=== PATIENT | male | born 1950 | race Caucasian/White ===

== ENCOUNTER 2017-06-24 10:58 | Emergency (ER) | payer OTHER ==
--- NOTE | 2017-06-24 11:10 | EDPHY ---
H & P Source: Patient, EMS Exam Limitations: No limitations Time Seen by Provider: 06/24/17 11:06 HPI/ROS: HPI: This is a 67-year-old male presents with Chief Complaint: Nosebleed and vasovagal near syncope Location: Left nare Quality: Nose bleed Duration: 1-3 hours Signs and Symptoms: No headache, no trauma, + dizziness, + sweating, + chest discomfort, no shortness of breath, no diaphoresis, no radiation Timing: Sudden, resolved Severity: Moderate Context: Patient reports that he was performing his regular stretches this morning when he had sudden onset of epistaxis from his left nare. He denies trauma/digital manipulation. He takes baby aspirin daily. He applied direct pressure but could not get it to stop for over an hour. He went to the [facility] at which time they placed a left rhino rocket with cessation of epistaxis. Approximately 1-5 minutes after placement of rhino rocket, patient began to feel lightheaded, anterior chest pressure and felt "woozy," he then had a witnessed vasovagal near-syncope episode. He did not lose consciousness. EMS was called and blood pressure upon arrival was 80/60. He was given 500 cc of normal saline and blood pressure now is 130/80. EKG showed no acute ischemic changes at the PCP which I reviewed at bedside. Patient has no prior history of cardiac disease. Has never had an OK, cardiac stress testing. Patient reports that he takes substantial amount of herbal supplementation. He is currently laughing and smiling and has no complaints. He reports that he feels substantially better. Modifying Factors: Direct pressure, rhino rocket, IV fluids with complete relief Comment: ROS: see HPI Constitutional: No fever, no chills, no weight loss Eyes: No blurred vision Respiratory: No shortness of breath, no cough Cardiovascular: No chest pain Gastrointestinal: No nausea, no vomiting, no diarrhea Genitourinary: No dysuria Extremities: No myalgias Neurologic: No weakness, no numbness Skin: No rashes Hematologic: No bruising, no bleeding MEDICAL/SURGICAL/SOCIAL HISTORY: Medical history: Asthma Surgical history: Denies Social history: . CONSTITUTIONAL: Well-developed well-nourished adult white male, awake and alert , no obvious distress HEENT: Atraumatic and normocephalic, PERRL, EOMI. Tympanic membranes clear. Oropharynx clear, no exudate and moist pink mucosa. Nares: Right no epistaxis ; left rhino rocket in place. Airway patent. No lymphadenopathy. No meningismus. Cardiovascular: Normal S1/S2, regular rate, regular rhythm, without murmur rub or gallop. PULMONARY/CHEST: Symmetrical and nontender. Clear to auscultation bilaterally. Good air movement. No accessory muscle usage. ABDOMEN: Soft, nondistended, nontender, no rebound, no guarding, no peritoneal signs, no masses or organomegaly. No CVAT. EXTREMITIES: 2/2 pulses, strength 5/5, no deformities, no clubbing, no cyanosis or edema. NEUROLOGICAL: no focal neuro deficits. GCS 15. SKIN: Warm and dry, no erythema. no rash. Good capillary refill. (Vickie Keita) Constitutional: Initial Vital Signs Temperature (C) 36.4 C 06/24/17 10:58 Heart Rate 78 06/24/17 10:58 Respiratory Rate 16 06/24/17 10:58 Blood Pressure 136/82 H 06/24/17 10:58 O2 Sat (%) 96 06/24/17 10:58 O2 Delivery Mode Room Air Allergies/Adverse Reactions: No Known Allergies Allergy (Unverified 03/31/12 22:03) Home Medications: Medication Instructions Recorded Aspirin 06/24/17 Herbal Drugs 06/24/17 Medical Decision Making - Diagnostics EKG Interpretation: 12 lead EKG: Indication: Near syncope Rhythm: Normal sinus rhythm, rate 74 beats per minute [place]: Normal Intervals: Normal QRS: Normal ST segments: Normal T segments: nonspecific changes INTERPRETATION: No acute ischemic changes The 12 lead EKG was interpreted by myself and with attending. (Vickie Keita) EKG: Complete interpretation has been separately recorded in the [facility] archive. Summary impression: Sinus rhythm (Armani Vora) ED Course/Re-evaluation: Epistaxis resolved with left rhino rocket and vital signs stable upon arrival Labs, EKG ordered and shows no signs of acute coronary syndrome, arrhythmia, anemia, coagulopathy (Vickie Keita) Differential Diagnosis: Differential diagnosis includes but is not limited to vasovagal syncope, anemia , epistaxis, coagulopathy. (Vickie Keita) Other Provider: PHYSICIAN DOCUMENTATION: The patient was evaluated and managed by the Physician Wire Tester. My co- signature indicates that I have reviewed this chart and I agree with the findings and plan of care as documented. I am the secondary supervising physician. (Armani Vora) - Data Points Laboratory Results: Laboratory Results 06/24/17 11:19 06/24/17 06/24/17 06/24/17 11:19 11:19 11:19 WBC 11.86 10^3/uL H 10^3/uL (3.80-9.50) RBC 4.37 10^6/uL L 10^6/uL (4.40-6.38) Hgb 14.2 g/dL g/dL (13.7-17.5) Hct 39.6 % L % (40.0-51.0) MCV 90.6 fL fL (81.5-99.8) MCH 32.5 pg pg (27.9-34.1) MCHC 35.9 g/dL g/dL (32.4-36.7) RDW 12.0 % % (11.5-15.2) Plt Count 142 10^3/uL L 10^3/uL (150-400) MPV 9.9 fL fL (8.7-11.7) Neut % (Auto) 77.5 % H % (39.3-74.2) Lymph % (Auto) 14.0 % L % (15.0-45.0) [place] % (Auto) 6.6 % % (4.5-13.0) Eos % (Auto) 0.8 % % (0.6-7.6) Baso % (Auto) 0.3 % % (0.3-1.7) Nucleat RBC Rel Count 0.0 % % (0.0-0.2) Absolute Neuts (auto) 9.21 10^3/uL H 10^3/uL (1.70-6.50) Absolute Lymphs (auto) 1.66 10^3/uL 10^3/uL (1.00-3.00) Absolute Monos (auto) 0.78 10^3/uL 10^3/uL (0.30-0.80) Absolute Eos (auto) 0.09 10^3/uL 10^3/uL (0.03-0.40) Absolute Basos (auto) 0.03 10^3/uL 10^3/uL (0.02-0.10) Absolute Nucleated RBC 0.00 10^3/uL 10^3/uL (0-0.01) Immature Gran % 0.8 % % (0.0-1.1) Immature Gran # 0.09 10^3/uL 10^3/uL (0.00-0.10) PT 13.5 SEC SEC (12.0-15.0) INR 1.04 (0.83-1.16) APTT 23.7 SEC SEC (23.0-38.0) Troponin I < 0.012 ng/mL ng/mL (0.000-0.034) Departure - Departure Disposition: Home, Routine, Self-Care Clinical Impression: Left-sided epistaxis, Vasovagal near syncope Condition: Good Instructions: Nosebleed (ED) Additional Instructions: Please keep rhino rocket in place for the next 1-2 days. Follow-up with PCP or ear nose and throat to have it removed in 1-2 days. Avoid all NSAIDs for the next few days. Referrals: Anderson Moscoso MD [Primary Care Provider] - As per Instructions Aroldo Yi MD [Medical Doctor] - As per Instructions
[2017-06-24 11:27] LABS: % IMMATURE GRANULYOCYTES 0.8 % (0.0-1.1); ABSOLUTE IMMATURE GRANULOCYTES 0.09 10^3/uL (0.00-0.10); ADD DIFF? NO; ADD MORPH? NO; ADD SCAN? NO; ATYPICAL LYMPHOCYTE FLAG 0 (0-99); FRAGMENT RBC FLAG 0 (0-99); HEMATOCRIT 39.6 % (40.0-51.0); HEMOGLOBIN 14.2 g/dL (13.7-17.5); LEFT SHIFT FLG 0 (0-99); LIPEMIA HEMOLYSIS FLAG 90 (0-99); MEAN CELL HEMOGLOBIN 32.5 pg (27.9-34.1); MEAN CELL HEMOGLOBIN CONCENTR. 35.9 g/dL (32.4-36.7); MEAN CELL VOLUME 90.6 fL (81.5-99.8); MEAN PLATELET VOLUME 9.9 fL (8.7-11.7); PLATELET CLUMPS FLAG 10 (0-99); PLATELET COUNT 142 10^3/uL (150-400); RED BLOOD CELL COUNT 4.37 10^6/uL (4.40-6.38)
--- NOTE | 2017-06-24 11:31 | CPEKG ---
Heart Rate: 74 RR Interval: 811 P-R Interval: 184 QRSD Interval: 88 QT Interval: 352 QTC Interval: 391 P [place]: 50 QRS [place]: -25 T Wave [place]: -14 EKG Severity - BORDERLINE ECG - EKG Impression: SINUS RHYTHM Electronically Signed By: Armani Vora 24-Jun-2017 12:33:39
[2017-06-24 11:37] LABS: INR 1.04 (0.83-1.16); PROTIME(PATIENT) 13.5 SEC (12.0-15.0)
[2017-06-24 11:38] LABS: APTT 23.7 SEC (23.0-38.0)
[2017-06-24 12:21] VITALS: BP 107/78; PULSE 72; RESP 15; TEMP 97.7; O2SAT 93
== END 2017-06-24 12:21 | disposition home or self-care (01) ==
LOC: EDUNIT#
DX: R04.0 Epistaxis (principal); R55 Syncope and collapse; J45.909 Unspecified asthma, uncomplicated; Z79.82 Long term (current) use of aspirin

== ENCOUNTER 2017-06-24 20:36 | Observation (INO) | payer OTHER ==
--- NOTE | 2017-06-24 21:09 | EDPHY ---
H & P Time Seen by Provider: 06/24/17 20:59 HPI/ROS: CHIEF COMPLAINT: Epistaxis HISTORY OF PRESENT ILLNESS: This patient is a 67 y/o male returning to the emergency department complaining of persistent left-sided epistaxis. This morning, he presented to [facility] urgent care for epistaxis. Unable to control the epistaxis in clinic, so was seen by ENT. He saw Dr. Guillen, craft demonstrator, who placed a nasal packing. The bleeding stopped. However, after the packing was placed, the patient had a near-syncopal episode and presented to this emergency department for evaluation. He received IVF and HCT was normal. His epistaxis remained well-controlled at that time. After discharge around 12pm, the patient felt well throughout the afternoon. While getting ready for bed, he leaned over and began bleeding again, with blood seeping past the packing. The packing slipped out slightly and he replaced it, but the bleeding continued. He presents with a nasal clip and the packing still partially in place. No prior serious epistaxis. He denies any further dizziness or lightheadedness. No chest pain, headache, shortness of breath, or other associated symptoms. REVIEW OF SYSTEMS: A 10 point review of systems was performed and is negative with the exception of the elements mentioned in the history of present illness. Past Medical/Surgical History: 1. Asthma 2. Heart murmur 3. L knee injury 4. Nasal fracture Social History: . Lives in [place]. Former smoker. Smoking Status: Former smoker Physical Exam: General Appearance: Alert, pleasant and talkative Eyes: Pupils equal and round, no conjunctival pallor ENT, Mouth: Nasal packing left nostril and nasal clip in place. Oozing blood from left nostril. Persistent epistaxis following removal of nasal clip. Mucous membranes moist, blood in oropharynx Neck: Normal inspection Respiratory: Lungs are clear to auscultation Cardiovascular: Regular rate and rhythm Neurological: A&O, nonfocal, normal gait Skin: Warm and dry Extremities: Normal inspection Psychiatric: Mood and affect normal Constitutional: Initial Vital Signs Temperature (C) 37.0 C 06/24/17 20:40 Heart Rate 95 06/24/17 20:40 Respiratory Rate 18 06/24/17 20:40 Blood Pressure 160/99 H 06/24/17 20:40 O2 Sat (%) 96 06/24/17 20:40 O2 Delivery Mode Nasal Cannula O2 (L/minute) 3 Allergies/Adverse Reactions: No Known Allergies Allergy (Unverified 06/24/17 20:42) Home Medications: Medication Instructions Recorded Albuterol [Proventil Inhaler HFA 1 - 2 puffs IH Q4H PRN 06/24/17 (*)] Acetaminophen [Tylenol 325mg (*)] 650 mg PO Q4HRS PRN tab 06/25/17 Amoxicillin/Clavulanate Pot 875 mg PO BID #14 tab 06/25/17 [Augmentin 875 MG TAB (*)] Budesonide/Formoterol 160/4.5 2 puffs IH BID 06/25/17 [Symbicort 160-4.5 Mcg Inh (*)] Medical Decision Making ED Course/Re-evaluation: 67 y/o male presents with persistent epistaxis despite packing placed by Dr. Guillen, craft demonstrator, earlier today. Plan to consult with Dr. Guillen. Concern for recurrent severe epistaxis if I change the packing. However, need to change packing to control persistent bleeding. Query if need to change packing in OR vs ED. 21:[address] Guillen. Consulted with Dr. Yi, craft demonstrator restaurant operations manager. I will remove the current packing and replace with an inflatable rhinorocket. 21:36 Patient has severe epistaxis upon removal of packing, pulsatile bleeding left nares. Unable to visualize location of bleeding. Left-sided rhino rocket placed, 10 mL of air placed. Patient continued to have moderate bleeding. A rhino rocket was placed on the right. Inflated with 5 mL of air. He continued to have bleeding, so the left right a rocket was increased to 20ml air. This slowed the bleeding to a slow drip left nares. IV established and pt placed on monitor. 21:[address] Yi again, he will come to the ED. 22:03 Dr. Yi at bedside. 22:[address] Yi. BP decreased, epistaxis stopped at this time without further intervention. Discussed pack removal and attempt for cautery with silver nitrate vs. leaving pack in place and admitting the patient for BP control and observation. Keep BP around 120 or 130 systolic maximum. He recommends q2hr morphine. If bleed is arterial, patient may require surgical interventions. Recommend antibiotic prescription e.g Keflex while pack is in. Plan to admit. Keflex 500mg ordered. 22:33 Spoke with hospitalist service. Dr. Soto accepts admission. 2245: recurrent bleeding, Dr. Yi in room, plan to go to OR. BP decreased to 72/47, placed pt on left side, 2nd IV placed, IVF infusing, oxygen applied by face mask. Repeat Hct 36, pt already typed and screened. Repeat BP normalized, pt feels better, taken to the OR. Critical care time by me exclusive of procedures 40 minutes. I spent time in direct patient care, consultation with ENT, review of labs. Organ at risk: all , hemorrhage due to epistaxis. Differential Diagnosis: includes though not limited to posterior epistaxis, arterial bleeding, severe anemia, hemorrhagic shock. - Data Points Laboratory Results: Laboratory Results 06/24/17 21:48 Medications Given: Discontinued Medications Albumin Human (Alburx 5) Confirm Administered Dose 250 ml IV .STK-MED ONE Stop: 06/25/17 00:00 Last Admin: 06/25/17 04:02 Dose: Not Given Bacitracin (Bacitracin Ointment Tube) Confirm Administered Dose 14.2 erica TP .STK -MED ONE Stop: 06/24/17 23:24 Last Admin: 06/25/17 00:39 Dose: 14.2 erica Budesonide/Formoterol Fumarate (Symbicort 160-4.5 Mcg Inhaler) 2 puffs IH BID [facility] Stop: 12/22/17 10:59 Last Admin: 06/25/17 12:10 Dose: 2 puffs Sodium Chloride (Ns) 1,000 mls @ 0 mls/hr IV ONCE ONE; Wide Open PRN Reason: Protocol Stop: 06/24/17 21:50 Last Admin: 06/24/17 21:52 Dose: 1,000 mls Cefazolin Sodium/Dextrose (Ancef 1 Gm (Premix)) 50 mls @ 200 mls/hr IV ONCE ONE Stop: 06/25/17 02:44 Last Admin: 06/25/17 02:30 Dose: 50 mls Cefazolin Sodium/Dextrose (Ancef 1 Gm (Premix)) 50 mls @ 200 mls/hr IV 0200, 1000,1800 [facility] Stop: 07/25/17 09:59 Last Admin: 06/25/17 10:06 Dose: 50 mls Lidocaine/Epinephrine (Lidocaine 2%-Epi 1:100,000) Confirm Administered Dose 20 ml .ROUTE .STK-MED ONE Stop: 06/24/17 23:24 Last Admin: 06/25/17 00:52 Dose: Not Given Morphine Sulfate (Morphine) 4 mg IVP EDNOW ONE Stop: 06/24/17 22:11 Last Admin: 06/24/17 22:12 Dose: 4 mg Morphine Sulfate (Morphine) 4 mg IVP EDNOW ONE Stop: 06/24/17 22:49 Last Admin: 06/24/17 22:53 Dose: 4 mg Ondansetron HCl (Zofran) 4 mg IVP EDNOW ONE Stop: 06/24/17 22:11 Last Admin: 06/24/17 22:11 Dose: 4 mg Oxymetazoline HCl (Afrin Nasal [place]) Confirm Administered Dose 30 sprays .ROUTE .STK-MED ONE Stop: 06/24/17 23:24 Last Admin: 06/25/17 04:02 Dose: Not Given Departure - Departure Disposition: [facility] Inpatient Acute Clinical Impression: Left-sided epistaxis Condition: Serious Report Scribed for: Brittany Pacheco Report Scribed by: Nicolasa Rodríguez Date of Report: 06/24/17 Time of Report: 21:01 Physician Review and Approval Statement: 06/24/17 21:01 Portions of this note were transcribed by a medical office assistant. I personally performed a history, physical exam, medical decision making, and confirmed accuracy of information the transcribed note.
[2017-06-24] MEDS ORDERED: NS 1,000 ML IV ONE (21:49)
[2017-06-24 21:55] LABS: % IMMATURE GRANULYOCYTES 0.8 % (0.0-1.1); ABSOLUTE IMMATURE GRANULOCYTES 0.08 10^3/uL (0.00-0.10); ADD DIFF? NO; ADD MORPH? NO; ADD SCAN? NO; ATYPICAL LYMPHOCYTE FLAG 0 (0-99); FRAGMENT RBC FLAG 0 (0-99); HEMATOCRIT 40.2 % (40.0-51.0); HEMOGLOBIN 14.8 g/dL (13.7-17.5); LEFT SHIFT FLG 0 (0-99); LIPEMIA HEMOLYSIS FLAG 90 (0-99); MEAN CELL HEMOGLOBIN 33.3 pg (27.9-34.1); MEAN CELL HEMOGLOBIN CONCENTR. 36.8 g/dL (32.4-36.7); MEAN CELL VOLUME 90.5 fL (81.5-99.8); PLATELET CLUMPS FLAG 0 (0-99); PLATELET COUNT 165 10^3/uL (150-400); RED BLOOD CELL COUNT 4.44 10^6/uL (4.40-6.38); RED CELL DISTRIBUTION WIDTH 12.1 % (11.5-15.2)
[2017-06-24] MEDS ORDERED: ONDANSETRON 4 MG/2 ML VIAL ONE (22:10)
[2017-06-24] MEDS ORDERED: ONDANSETRON 4 MG/2 ML VIAL IVP ONE (22:10)
[2017-06-24] MEDS ORDERED: SILVER NITRATE APPLICATOR 1 APPL TP ONE (22:12)
[2017-06-24] MEDS ORDERED: ONDANSETRON DISINTEGRATING 4 MG TAB PO PRN (22:37)
[2017-06-24] MEDS ORDERED: ACETAMINOPHEN 325 MG TAB PO PRN (22:37)
[2017-06-24] MEDS ORDERED: ONDANSETRON 4 MG/2 ML VIAL IVP PRN (22:37)
[2017-06-24] MEDS ORDERED: hydrALAZINE 25 MG TAB PO PRN (22:39)
[2017-06-24] MEDS ORDERED: CEPHALEXIN 500 MG CAP PO ONE (22:55)
--- NOTE | 2017-06-24 23:06 | PDGENHP ---
History and Physical - Chief Complaint Epistaxis - History of Present Illness 67 yo M w/ no significant PMHx presents with epistaxis. Patient bent over to pick something up this morning and began to experience epistaxis. This was difficult to stop throughout the day. He is on a daily aspirin and various other supplements. He was seen by an ENT to placed some packing. Shortly after placement of the packing he had near-syncopal episode c/w a vaso-vagal event. Despite this packing he continued to bleed so he was sent to the ED. In the ED packing was again placed but he continues to bleed despite this. He is currently being evaluated by ENT with the possibility of surgical intervention. History Information - Allergies/Home Medication List Allergies/Adverse Reactions: No Known Allergies Allergy (Unverified 06/24/17 20:42) Home Medications: Albuterol [Proventil Inhaler HFA (*)] 1 - 2 puffs IH Q4H 06/24/17 [Last Taken Unknown] Aspirin 06/24/17 [Last Taken Unknown] Herbal Drugs 06/24/17 [Last Taken Unknown] I have personally reviewed and updated: family history, medical history - Past Medical History no pertinent PMH - Family History Additional family history: Denies family hx of bleeding - Social History Smoking Status: Former smoker Review of Systems Review of Systems: ROS: 10pt was reviewed & negative except for what was stated in HPI & below Physical Exam Physical Exam: Temp Pulse Resp BP Pulse Ox 37.0 C 90 18 141/100 H 94 06/24/17 20:40 06/24/17 22:20 06/24/17 22:20 06/24/17 22:20 06/24/17 22:20 Constitutional: appears nourished, uncomfortable Eyes: PERRL, EOMI Ears, Nose, Mouth, Throat: other (Active epistaxis despite packing in place) Cardiovascular: regular rate and rhythym Respiratory: no respiratory distress, no rales or rhonchi Gastrointestinal: normoactive bowel sounds, soft, non-tender abdomen Skin: warm, normal color Musculoskeletal: full muscle strength, no muscle tenderness Neurologic: AAOx3, CN II-XII Intact Psychiatric: interacting appropriately, not anxious Lab Data & Imaging Review 06/24/17 21:48 WBC 9.82 10^3/uL (3.80-9.50) H 06/24/17 21:48 RBC 4.44 10^6/uL (4.40-6.38) 06/24/17 21:48 Hgb 14.8 g/dL (13.7-17.5) 06/24/17 21:48 Hct 40.2 % (40.0-51.0) 06/24/17 21:48 MCV 90.5 fL (81.5-99.8) 06/24/17 21:48 MCH 33.3 pg (27.9-34.1) 06/24/17 21:48 MCHC 36.8 g/dL (32.4-36.7) H 06/24/17 21:48 RDW 12.1 % (11.5-15.2) 06/24/17 21:48 Plt Count 165 10^3/uL (150-400) 06/24/17 21:48 MPV 10.0 fL (8.7-11.7) 06/24/17 21:48 Neut % (Auto) 62.8 % (39.3-74.2) 06/24/17 21:48 Lymph % (Auto) 26.2 % (15.0-45.0) 06/24/17 21:48 [place] % (Auto) 8.8 % (4.5-13.0) 06/24/17 21:48 Eos % (Auto) 1.0 % (0.6-7.6) 06/24/17 21:48 Baso % (Auto) 0.4 % (0.3-1.7) 06/24/17 21:48 Nucleat RBC Rel Count 0.0 % (0.0-0.2) 06/24/17 21:48 Absolute Neuts (auto) 6.17 10^3/uL (1.70-6.50) 06/24/17 21:48 Absolute Lymphs (auto) 2.57 10^3/uL (1.00-3.00) 06/24/17 21:48 Absolute Monos (auto) 0.86 10^3/uL (0.30-0.80) H 06/24/17 21:48 Absolute Eos (auto) 0.10 10^3/uL (0.03-0.40) 06/24/17 21:48 Absolute Basos (auto) 0.04 10^3/uL (0.02-0.10) 06/24/17 21:48 Absolute Nucleated RBC 0.00 10^3/uL (0-0.01) 06/24/17 21:48 Immature Gran % 0.8 % (0.0-1.1) 06/24/17 21:48 Immature Gran # 0.08 10^3/uL (0.00-0.10) 06/24/17 21:48 Patient ABO/Rh A POSITIVE 06/24/17 21:48 Antibody Screen NEGATIVE 06/24/17 21:48 Assessment & Plan Assessment: 67 yo M w/ no significant PMHx presents with epistaxis. Plan: 1. Epistaxis - Difficult to control, likely some contribution from daily ASA but otherwise no clear trigger. Patient has no family or personal history of bleeding diathesis. Continues to bleed despite multiple packing attempts. - Currently being evaluated by ENT, may require surgery - Morphine PRN for pain, Maintain SBP <160 - Monitor CBC 2. Near-syncope - This occurred immediately after nasal packing was placed and patient does not think he actually lost consciousness. Very c/w vaso-vagal event in the setting of aggressive packing. - Monitor clinically Diet - Regular Code - Full Ppx - SCDs Dispo - Admit to observation status
[2017-06-24] MEDS ORDERED: LORazepam 2 MG/ML INJ ONE (23:10)
[2017-06-24 23:20] LABS: HEMATOCRIT 35.3 % (40.0-51.0); HEMOGLOBIN 13.3 g/dL (13.7-17.5)
[2017-06-24] MEDS ORDERED: OXYMETAZOLINE 30 ML NASAL SPRAY ONE (23:23)
[2017-06-24] MEDS ORDERED: LIDO/EPI 2%** Not for Epidural 20 ML MDV ONE (23:23)
[2017-06-24] MEDS ORDERED: BACITRACIN ZINC 14.2 GM OINTTUBE TP ONE (23:23)
[2017-06-24] MEDS ORDERED: fentaNYL 100 MCG/2 ML INJ ONE (23:27)
[2017-06-24] MEDS ORDERED: PROPOFOL 200 MG/20 ML VIAL ONE ×2 (23:27)
[2017-06-24 23:29] LABS: INR 1.07 (0.83-1.16); PROTIME(PATIENT) 13.8 SEC (12.0-15.0)
[2017-06-24 23:30] LABS: APTT 24.5 SEC (23.0-38.0)
[2017-06-24] MEDS ORDERED: LIDOCAINE 2% 100 MG/5 ML SYR ONE (23:32)
[2017-06-24] MEDS ORDERED: SUCCINYLCHOLINE CHLORIDE*ANESTHESIA ONLY*200 MG/10 ML SYR IVP ONE (23:40)
[2017-06-24] MEDS ORDERED: ALBUMIN 5% 250 ML BOTTLE IV ONE (23:59)
[2017-06-25] MEDS ORDERED: VASOPRESSIN 20 UNIT/ML VIAL ONE (00:04)
[2017-06-25] MEDS ORDERED: ONDANSETRON 4 MG/2 ML VIAL IVP PRN (00:37)
[2017-06-25] MEDS ORDERED: NALOXONE HCL 0.4 MG/ML INJ IVP PRN (00:37)
[2017-06-25] MEDS ORDERED: fentaNYL 100 MCG/2 ML INJ IVP PRN (00:37)
[2017-06-25] MEDS ORDERED: PROMETHAZINE HCL 25 MG/ML INJ IVP PRN (00:37)
--- NOTE | 2017-06-25 01:33 | PDANEPAE ---
ANE History of Present Illness 67 yo M brought to OR 7 emergently with active epistaxis for endoscopic surgery ANE Past Medical History - Pulmonary History Hx Oxygen in Use at Home: No Hx Sleep Apnea: No - Endocrine History Hx Diabetes: No ANE Review of Systems Review of Systems: ANE Patient History - Allergies Allergies/Adverse Reactions: No Known Allergies Allergy (Unverified 06/24/17 20:42) - Home Medications Home Medications: Albuterol [Proventil Inhaler HFA (*)] 1 - 2 puffs IH Q4H 06/24/17 [Last Taken Unknown] Aspirin 06/24/17 [Last Taken Unknown] Herbal Drugs 06/24/17 [Last Taken Unknown] - NPO status NPO Since - Liquids (Date): 06/24/17 NPO Since - Liquids (Time): 06:30 NPO Since - Solids (Date): 06/24/17 NPO Since - Solids (Time): 06:30 - Smoking Hx Smoking Status: Former smoker ANE Labs/Vital Signs - Labs Result Diagrams: 06/24/17 23:15 - Vital Signs Blood Pressure: 103/60 Heart Rate: 90 Respiratory Rate: 14 O2 Sat (%): 97 Height: 167.64 cm Weight: 81.647 kg ANE Physical Exam - Airway Neck exam: FROM Mallampati Score: Unable to assesss Mouth exam: velarde (active arterial bleed limits exam ) - Pulmonary Pulmonary: no respiratory distress - Cardiovascular Cardiovascular: regular rate and rhythym - ASA Status ASA Status: II, E ANE Anesthesia Plan Anesthesia Plan: general endotracheal anesthesia Specialized Airway: video laryngoscope (RSI and emergent intubation) Urgent/Emergent Case: Veronica keyes completed preop but documented later for safe timely pt care (unable to perform complete evaluation 2/2 to emergent nature of the case)
--- NOTE | 2017-06-25 01:35 | POSTANESTH ---
Post Anesthetic Evaluation Cardiovascular Status: Normal, Stable (hypotensive, but stable and transfusing 2 U PRBC), Tx Hyper/Hypo-tension Respiratory Status: Normal, Stable Level of Consciousness/Mental Status: Can Participate in Eval Pain Control: Adequate, Prn Tx Ordered Nausea/Vomiting Control: Adequate, Prn Tx Ordered Complications Possibly Related to Anesthesia: None Noted
[2017-06-25 05:29] LABS: % IMMATURE GRANULYOCYTES 0.6 % (0.0-1.1); ABSOLUTE IMMATURE GRANULOCYTES 0.08 10^3/uL (0.00-0.10); ADD DIFF? NO; ADD MORPH? NO; ADD SCAN? NO; ATYPICAL LYMPHOCYTE FLAG 0 (0-99); FRAGMENT RBC FLAG 0 (0-99); HEMATOCRIT 35.6 % (40.0-51.0); HEMOGLOBIN 12.5 g/dL (13.7-17.5); LEFT SHIFT FLG 0 (0-99); LIPEMIA HEMOLYSIS FLAG 90 (0-99); MEAN CELL HEMOGLOBIN 31.6 pg (27.9-34.1); MEAN CELL HEMOGLOBIN CONCENTR. 35.1 g/dL (32.4-36.7); MEAN CELL VOLUME 90.1 fL (81.5-99.8); MEAN PLATELET VOLUME 10.2 fL (8.7-11.7); PLATELET CLUMPS FLAG 10 (0-99); PLATELET COUNT 123 10^3/uL (150-400); RED BLOOD CELL COUNT 3.95 10^6/uL (4.40-6.38); RED CELL DISTRIBUTION WIDTH 12.9 % (11.5-15.2)
[2017-06-25 05:58] LABS: ANION GAP 10 mEq/L (8-16); CALCIUM 8.1 mg/dL (8.5-10.4); CARBON DIOXIDE 24 mEq/l (22-31); CHLORIDE 105 mEq/L (97-110); CREATININE 0.9 mg/dL (0.7-1.3); GLOMERULAR FILTRATION RATE > 60; GLUCOSE 137 mg/dL (70-100); POTASSIUM 4.7 mEq/L (3.5-5.2); SODIUM 139 mEq/L (134-144)
[2017-06-25 07:25] VITALS: RESP 18
--- NOTE | 2017-06-25 09:48 | HOSPPROG ---
Hospitalist Progress Note Assessment/Plan: Patient is a 67-year-old male who presented with epistaxis. It started early in the morning and he had difficulty stopping it to the day. He was seen evaluated by ENT who placed packing but after the packing he had a near- syncopal episode. He continued to bleed. Subsequently he was seen by Dr. Yi. And had surgery. Today is my 1st encounter with the patient. Chart reviewed. * epistaxis -was given 2 units of packed red blood cells -status post cauterization with Dr. Yi -spoke w PA at their office who recommended abx coverage while packing is in place -one of the staff from their office will see Ben prior to dc * near syncope -consistent with vasovagal *asthma -resume inhalers * plan. Recommending no aspirin or supplements until cleared by ENT, no blowing nose Subjective: Ben is feeling fine, wants to go home. Objective: Vital Signs Temp Pulse Resp BP Pulse Ox 36.7 C 95 18 111/60 90 L 06/25/17 07:22 06/25/17 07:22 06/25/17 07:22 06/25/17 07:22 06/25/17 07:22 Laboratory Results 06/25/17 05:10 06/25/17 05:10 06/24/17 06/25/17 06/26/17 05:59 05:59 05:59 Intake Total 4500 825 Output Total 800 Balance 3700 825 PT 13.8 SEC (12.0-15.0) 06/24/17 23:15 INR 1.07 (0.83-1.16) 06/24/17 23:15 - Physical Exam Constitutional: no apparent distress, not in pain Eyes: PERRL Ears, Nose, Mouth, Throat: hearing normal Cardiovascular: regular rate and rhythym Respiratory: no respiratory distress, reduced air movement Skin: warm Musculoskeletal: full muscle strength Neurologic: AAOx3 Psychiatric: interacting appropriately ICD10 Worksheet Patient Problems: Problems Problem Status Onset Left-sided epistaxis Acute
[2017-06-25] MEDS ORDERED: ceFAZolin 0.5 GM in D5W 50 ML IV SCH (10:30)
[2017-06-25] MEDS ORDERED: BUDESONIDE/FORMOTEROL 160/4.5 60 PUFFS/MDI IH SCH (11:00)
[2017-06-25 11:54] VITALS: O2SAT 94
--- NOTE | 2017-06-25 12:08 | ASMTCASEMG ---
Living Arrangements What is your living Answers: With Spouse arrangement? Who do you live with? Type Of Residence What kind of residence do Answers: House you live in? Discharge Plan Comments Coordination Status Comments Notes: Pt is a 67 y/o man admitted for epistaxis. Anticipates that pt will d/c independent when medically ready w/ supportive . No therapies ordered at this time. CM available for d/c needs. Plan: Independent Date Signed: 06/25/2017 12:08 PM Electronically Signed By:ROSALINDA Conway
[2017-06-25 12:24] LABS: HEMOGLOBIN 12.7 g/dL (13.7-17.5)
--- NOTE | 2017-06-25 13:36 | SOAPPROG ---
SOAP Progress Note Assessment/Plan: pt s/p posterior epistaxis requiring surgery last night . Being seen today with Aroldo Yi MD. He is stable. nose- packs in palce. gauze trimmed. Plan: Pt can be discharged home today. He will f/u tomorrow for right pack removal. Please discharge him home on antibiotics. 06/25/17 13:33 Objective: Vital Signs Temp Pulse Resp BP Pulse Ox 36.6 C 108 H 18 103/67 94 06/25/17 11:52 06/25/17 11:52 06/25/17 11:52 06/25/17 11:52 06/25/17 11:52 Laboratory Results 06/25/17 12:15 06/25/17 05:10 06/24/17 06/25/17 06/26/17 05:59 05:59 05:59 Intake Total 4500 825 Output Total 800 Balance 3700 825 PT 13.8 SEC (12.0-15.0) 06/24/17 23:15 INR 1.07 (0.83-1.16) 06/24/17 23:15 - Pending Discharge Pending Discharge Within 24 Hours: Yes Pending Discharge Date: 06/26/17 Pending Discharge Time: 11:00 ICD10 Worksheet Patient Problems: Problems Problem Status Onset Left-sided epistaxis Acute
[2017-06-25 16:09] VITALS: BP 153/90; PULSE 61; TEMP 98.5
--- NOTE | 2017-06-25 16:54 | ASDISCHSUM ---
Discharge Information Plan Status:Home with No Needs Medically Cleared to Leave:06/24/2017 Discharge Date:06/25/2017 04:43 PM CM D/C Disposition: ADT D/C Disposition:Home, Routine, Self-Care Projected Discharge Date:06/25/2017 12:00 AM Transportation at D/C: Discharge Delay Reason: Follow-Up Date:06/25/2017 12:00 AM Discharge Slot: Final Diagnosis: Placement Information Patient Contact Information Contact Name:GRAHAM Relationship: Address:[address] Work Phone: City:[place] Alternate Phone: [facility]/Zip Code:[place] [address] Email: Financial Information Financial Class: Primary Plan Desc:MEDICARE OUTPATIENT Primary Plan Number:[id number] Secondary Plan Desc:[employer] Secondary Plan Number:[id number] Assessment Information [facility] Initial CM Assessment Living Arrangements What is your living Answers: With Spouse arrangement? Who do you live with? Type Of Residence What kind of residence do Answers: House you live in? Discharge Plan Comments Coordination Status Comments Notes: Pt is a 67 y/o man admitted for epistaxis. Anticipates that pt will d/c independent when medically ready w/ supportive . No therapies ordered at this time. CM available for d/c needs. Plan: Independent Date Signed: 06/25/2017 12:08 PM Electronically Signed By:ROSALINDA Conway Intervention Information Intervention Type:*CLYDE-Signed Date of Service:06/25/2017 09:48 AM Patient Type:Observation Staff Member:Edith Carmona Hours: Discipline: Severity: Comment:
--- NOTE | 2017-06-25 19:46 | GCON ---
[f rep st] CONSULTATION CHIEF COMPLAINT: Epistaxis. HISTORY OF PRESENT ILLNESS: The patient is a 67-year-old gentleman with no prior history of epistaxi s noted, I also note no diagnosed issues with blood pressure, who was noted to have an episode of epi staxis earlier in the day on 06/24/2017, which was packed by one of my colleagues at the [facility]. The patient was also treated at that time for a syncopal episode. Patient also had been treated earlier in the day for a syncopal episode, which occurred after the packing was placed. At some point in the evening, the packing that had been placed dislodged and the patient noted recurrent epistaxis and was brought into the emergency room. He by history does note significant usage of fis h oil, as well as aspirin and other blood thinning type supplements, including ginseng, gingko, garli c. Patient has not noted any recent nasal trauma and has no other significant head and neck complain ts on questioning. PAST MEDICAL HISTORY: Please see chart. PAST SURGICAL HISTORY: Noncontributory. For allergies and medications, please see chart. REVIEW OF SYSTEMS: Noncontributory. PHYSICAL EXAMINATION: The patient is a 67-year-old gentleman who has obvious left-sided epistaxis de spite having nasal packing in place. I have attempted to remove the pack and I noted a significant e pistaxis from the left superior posterior aspect of the nasal cavity. The nose was then repacked wit h plans made for the patient to go to the operating room for definitive management of his epistaxis. The remainder of his comprehensive head and neck exam was otherwise unremarkable. IMPRESSION: It is my impression that the patient is a 67-year-old with a significant left-sided epis taxis. The plan will be to take the patient to the operating room for definitive management of his e pistaxis. He has had some mild hypertension in the ER and we have discussed needing to maintain adeq uate blood pressure control as well. The patient was consented in the ER for surgical control of epistaxis and the risks, benefits, indica tions, options, possible complications, and limitations of this procedure were discussed both with th e patient and his at length prior to signing the informed consent, and they were both given a ch ance to have their questions answered. Risks and complications included, but were not limited to, bl eeding, infection, visual changes including possible blindness, as well as anesthesia risks. The pat kane and his were both aware of these risks at the conclusion of our discussion, were appropriat e during the discussion. /[id number]/MODL
--- NOTE | 2017-06-25 20:11 | GOP ---
[f rep st] OPERATIVE REPORT DATE OF OPERATION: SURGEON: Aroldo Yi MD ANESTHESIA: General. PREOPERATIVE DIAGNOSIS: Epistaxis. POSTOPERATIVE DIAGNOSIS: Epistaxis. PROCEDURE PERFORMED: Surgical control of epistaxis. FINDINGS: A 67 year old with uncontrollable epistaxis. SPECIMENS: None. ESTIMATED BLOOD LOSS: Roughly 1 L of blood loss noted in the emergency room with less than 100 mL of further blood loss noted in the operating room. INDICATIONS: Epistaxis. DESCRIPTION OF PROCEDURE: Patient is a 67-year-old male brought to the operating room. General anes thesia was induced. Endotracheal intubation was performed. The patient is prepped and draped in a s terile fashion and procedure begun by removing the previously placed nasal packs from the emergency r oom. Once these packs were removed, the endoscopic evaluation of the left nasal cavity reveals a pum ping arterial vessel in the posterosuperior aspect of the nasal septal mucosa which is spraying the m idportion and anterior portion of the middle turbinate. This would seem to be the posterosuperior se ptal artery. Suction electrocautery and bipolar electrocautery were used to then control the bleedin g from this vessel. Other mucosal traumatic sites were then cauterized with the bipolar as well incl uding circumferentially around the main arterial bleed. Once this was done, the posterosuperior aspe ct of the nasal cavity was packed with quarter-inch iodoform gauze which was coated in bacitracin oin tment, and this was layered into that region under adequate pressure to control any further bleeding in this area and for the inferior portion of the nasal cavity, a Merocel pack was placed. A small Me rocel pack was also pack was also placed on the right side to help control any small amount of mucosa l bleeding from prior manipulation that was present. Once this was done, the patient had the nose an d face cleaned, and the Merocel packs were sewn interiorly with 2-0 silk suture and the patient was a wakened and extubated uneventfully and brought to recovery room in stable condition where he was expe cted to do well postoperatively. The patient tolerated the procedure well. /[id number]/MODL
--- NOTE | 2017-06-26 02:17 | GDS ---
[f rep st] DISCHARGE SUMMARY DISCHARGE DIAGNOSES: 1. Epistaxis that was uncontrolled. 2. Near syncopal event. 3. Asthma. 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 He had difficulty stopping it all day. He was seen evaluated by ENT who placed packing. This did not resolve the bleeding. In addition, he had a near syncopal episode. He was s een by Dr. Yi. He had cauterization in the left naris area. In addition, he was given 2 units of packed red blood cells. Today, his hemoglobin and hematocrit are stable. He will further follow up with Dr. Yi the end of this week for further evaluation. HOSPITAL COURSE: 1. Epistaxis. He was given 2 units of blood. His hemoglobin is 12.5, hematocrit is 35.6. He has t rended down a bit but overall has been stable. Dr. Yi would like him to be on antibiotics. I h ave placed him on Augmentin at discharge. He will follow up with their office the end of this week. 2. Near syncope. This was consistent with vasovagal. 3. Asthma, inhalers resumed. DISCHARGE CONDITION: Stable. Blood pressure is 153/90, heart rate is 61, respiratory rate is 18, O2 sats on room air 94%, temperature is 36.9 Celsius. MEDICATIONS AT DISCHARGE: Please see the EMR. DISCHARGE INSTRUCTIONS: 1. If he has any further bleeding, to return to the ER. 2. Follow up with Ear, Nose, and Throat and keep the packing in place. If he notes any fever, to re turn to the ER. 3. Do not bend over and recommended he stop aspirin and all the supplements at this time. 4. Take the Augmentin as instructed. If he has greater than 3 loose bowel movements in a day, to fo llow up with his PCP. Copy requested to: Dr. Danis Yi /[id number]/MODL
== END 2017-06-25 16:43 | disposition home or self-care (01) ==
LOC: F3E 06-25 02:00
PROVIDERS: ADMIT Student in an Organized Health Care Education/Training Program; ATTEND Student in an Organized Health Care Education/Training Program
PROC: 30233N1 Transfusion of Nonautologous Red Blood Cells into Peripheral Vein, Percutaneous Approach (ICD-10-PCS; 2017-06-24)
PROC: 095KXZZ Destruction of Nasal Mucosa and Soft Tissue, External Approach (ICD-10-PCS; 2017-06-24)
PROC: 2Y41X5Z Packing of Nasal Region using Packing Material (ICD-10-PCS; principal; 2017-06-24 23:40)
DX: R04.0 Epistaxis (principal); R55 Syncope and collapse; Z79.82 Long term (current) use of aspirin; Z87.891 Personal history of nicotine dependence; J45.909 Unspecified asthma, uncomplicated; R01.1 Cardiac murmur, unspecified
CPT/HCPCS: 30901; 30903; 93005; 96361; 96374; 96375; 99284; 99291; G0378; J0171; J0330; J0690; J2001; J2405; J2704; J3010; P9016; P9041; J2060

== ENCOUNTER 2017-06-29 05:31 | Emergency (ER) | payer OTHER ==
--- NOTE | 2017-06-29 06:03 | EDPHY ---
H & P Stated Complaint: SOB since 299 today Time Seen by Provider: 06/29/17 06:02 HPI/ROS: Chief Complaint: Shortness of breath HPI: 67-year-old male who is recently been admitted to this hospital with acute epistaxis requiring surgical intervention and blood transfusion. Patient was discharged home 2 days ago. He had nasal packing removed on Friday. He still has packing in place his left nostril. This morning the patient woke at 3 :00 a.m. feeling short of breath. He states he got up and sat in a chair for while aching continued to feel short of breath and a little panicky. He did not have any chest pain. No nausea or vomiting. No leg swelling. He does have a history of asthma but does not this is similar to prior exacerbations. No palpitations. He does state that he is feeling a bit better now. He has had a dry cough for the last couple days. ROS: 10 point Review of Systems is negative except as noted in the HPI. PMH: Epistaxis, asthma Social History: No smoking, occasional alcohol, no recreational drug use Family History: non-contributory Physical Exam: Gen: Awake, Alert, No Distress, anxious appearing HEENT: Nose: no rhinorrhea Eyes: PERRLA, EOMI Mouth: Moist mucosa Neck: Supple, no JVD Chest: nontender, lungs clear to auscultation Heart: S1, S2 normal, no murmur Abd: Soft, non-tender, no guarding Back: no CVA tenderness, no midline tenderness Ext: no edema, non-tender Skin: no rash Neuro: CN II-XII intact, Sensation grossly intact, Strength 5/5 in bilateral upper and lower extremities - Personal History Current Tetanus/Diphtheria Vaccine: Yes - Medical/Surgical History Hx Asthma: Yes Hx Chronic Respiratory Disease: No Hx Diabetes: No Hx Cardiac Disease: No Hx Renal Disease: No Hx Cirrhosis: No Hx Alcoholism: No Hx HIV/AIDS: No Hx Splenectomy or Spleen Trauma: No Other PMH: asthma, heart murmer, L knee injury, hernias. nose cauterized 06/24 - Social History Smoking Status: Former smoker Constitutional: Initial Vital Signs Temperature (C) 36.5 C 06/29/17 05:33 Heart Rate 111 H 06/29/17 05:33 Respiratory Rate 20 06/29/17 05:33 Blood Pressure 126/86 H 06/29/17 05:33 O2 Sat (%) 96 06/29/17 05:33 O2 Delivery Mode Room Air Allergies/Adverse Reactions: No Known Allergies Allergy (Unverified 06/24/17 20:42) Home Medications: Medication Instructions Recorded Albuterol [Proventil Inhaler HFA 1 - 2 puffs IH Q4H PRN 06/24/17 (*)] Acetaminophen [Tylenol 325mg (*)] 650 mg PO Q4HRS PRN tab 06/25/17 Amoxicillin/Clavulanate Pot 875 mg PO BID #14 tab 06/25/17 [Augmentin 875 MG TAB (*)] Budesonide/Formoterol 160/4.5 2 puffs IH BID 06/25/17 [Symbicort 160-4.5 Mcg Inh (*)] Percocet 5-325 mg Tablet 06/29/17 Medical Decision Making - Diagnostics EKG Interpretation: ECG time 6:11 a.m. sinus rhythm with a rate of 91, borderline left axis deviation. No acute ST or T-wave changes. Unchanged from an ECG on 24 June 2017. Imaging Results: Chest x-ray is negative for acute infiltrate or other abnormality per my interpretation. Imaging: I viewed and interpreted images myself ED Course/Re-evaluation: 0640 patient is significantly improved without any treatment here. ECG is unremarkable. Chest negative. Hemoglobin is stable compared to his post transfusion hemoglobin several days ago. Patient's D-dimer is 0.55 but this falls under the 0.65 a just a D-dimer for him. His rate is improved. He is feel much better will intervention. No evidence of acute cardiac or respiratory process. I think his symptoms are secondary to the narcotic was using any believes that this is the case as well. Plan will be to discharge for him to follow up with his Ear Nose and Throat doctor tomorrow as scheduled for packing removal. - Data Points Laboratory Results: Laboratory Results 06/29/17 06:00 06/29/17 06:00 06/29/17 06/29/17 06/29/17 06:00 06:00 06:00 WBC 8.95 10^3/uL 10^3/uL (3.80-9.50) RBC 3.87 10^6/uL L 10^6/uL (4.40-6.38) Hgb 12.8 g/dL L g/dL (13.7-17.5) Hct 35.1 % L % (40.0-51.0) MCV 90.7 fL fL (81.5-99.8) MCH 33.1 pg pg (27.9-34.1) MCHC 36.5 g/dL g/dL (32.4-36.7) RDW 12.6 % % (11.5-15.2) Plt Count 192 10^3/uL 10^3/uL (150-400) MPV 9.5 fL fL (8.7-11.7) Neut % (Auto) 64.3 % % (39.3-74.2) Lymph % (Auto) 23.9 % % (15.0-45.0) [place] % (Auto) 9.6 % % (4.5-13.0) Eos % (Auto) 1.5 % % (0.6-7.6) Baso % (Auto) 0.3 % % (0.3-1.7) Nucleat RBC Rel Count 0.0 % % (0.0-0.2) Absolute Neuts (auto) 5.75 10^3/uL 10^3/uL (1.70-6.50) Absolute Lymphs (auto) 2.14 10^3/uL 10^3/uL (1.00-3.00) Absolute Monos (auto) 0.86 10^3/uL H 10^3/uL (0.30-0.80) Absolute Eos (auto) 0.13 10^3/uL 10^3/uL (0.03-0.40) Absolute Basos (auto) 0.03 10^3/uL 10^3/uL (0.02-0.10) Absolute Nucleated RBC 0.00 10^3/uL 10^3/uL (0-0.01) Immature Gran % 0.4 % % (0.0-1.1) Immature Gran # 0.04 10^3/uL 10^3/uL (0.00-0.10) D-Dimer 0.55 ug/mLFEU H ug/mLFEU (0.00-0.50) Sodium 140 mEq/L mEq/L (134-144) Potassium 3.7 mEq/L mEq/L (3.5-5.2) Chloride 99 mEq/L mEq/L (97-110) Carbon Dioxide 29 mEq/l mEq/l (22-31) Anion Gap 12 mEq/L mEq/L (8-16) BUN 13 mg/dL mg/dL (7-23) Creatinine 1.0 mg/dL mg/dL (0.7-1.3) Estimated GFR > 60 Glucose 108 mg/dL H mg/dL (70-100) Calcium 9.5 mg/dL mg/dL (8.5-10.4) Troponin I 0.019 ng/mL ng/mL (0.000-0.034) Departure - Departure Disposition: Home, Routine, Self-Care Clinical Impression: Dyspnea Condition: Good Instructions: Dyspnea (ED) Additional Instructions: Return to the emergency depart for increasing shortness of breath, chest, fevers , chills, cough, or any other concerns. Follow up with Ear Nose and Throat doctor tomorrow as scheduled. Referrals: Anderson Moscoso MD [Primary Care Provider] - As per Instructions
[2017-06-29 06:10] LABS: % IMMATURE GRANULYOCYTES 0.4 % (0.0-1.1); ABSOLUTE IMMATURE GRANULOCYTES 0.04 10^3/uL (0.00-0.10); ADD DIFF? NO; ADD MORPH? NO; ADD SCAN? NO; ATYPICAL LYMPHOCYTE FLAG 0 (0-99); FRAGMENT RBC FLAG 0 (0-99); HEMATOCRIT 35.1 % (40.0-51.0); HEMOGLOBIN 12.8 g/dL (13.7-17.5); LEFT SHIFT FLG 0 (0-99); LIPEMIA HEMOLYSIS FLAG 90 (0-99); MEAN CELL HEMOGLOBIN 33.1 pg (27.9-34.1); MEAN CELL HEMOGLOBIN CONCENTR. 36.5 g/dL (32.4-36.7); MEAN CELL VOLUME 90.7 fL (81.5-99.8); MEAN PLATELET VOLUME 9.5 fL (8.7-11.7); PLATELET CLUMPS FLAG 10 (0-99); PLATELET COUNT 192 10^3/uL (150-400); RED BLOOD CELL COUNT 3.87 10^6/uL (4.40-6.38); RED CELL DISTRIBUTION WIDTH 12.6 % (11.5-15.2)
--- NOTE | 2017-06-29 06:12 | CPEKG ---
Heart Rate: 91 RR Interval: 659 P-R Interval: 176 QRSD Interval: 88 QT Interval: 340 QTC Interval: 419 P [place]: 41 QRS [place]: -28 T Wave [place]: -6 EKG Severity - BORDERLINE ECG - EKG Impression: SINUS RHYTHM EKG Impression: BORDERLINE LEFT AXIS DEVIATION EKG Impression: BORDERLINE T ABNORMALITIES, INFERIOR LEADS Electronically Signed By: Varun Corrales 29-Jun-2017 06:29:39
[2017-06-29 06:18] LABS: ANION GAP 12 mEq/L (8-16); CALCIUM 9.5 mg/dL (8.5-10.4); CARBON DIOXIDE 29 mEq/l (22-31); CHLORIDE 99 mEq/L (97-110); GLOMERULAR FILTRATION RATE > 60; GLUCOSE 108 mg/dL (70-100); POTASSIUM 3.7 mEq/L (3.5-5.2); SODIUM 140 mEq/L (134-144)
[2017-06-29 06:30] LABS: TROPONIN I 0.019 ng/mL (0.000-0.034)
[2017-06-29 07:13] VITALS: BP 115/67; PULSE 81; RESP 19; TEMP 98.2; O2SAT 95
== END 2017-06-29 07:13 | disposition home or self-care (01) ==
DX: R06.00 Dyspnea, unspecified (principal); J45.909 Unspecified asthma, uncomplicated; Z87.891 Personal history of nicotine dependence

== ENCOUNTER 2018-09-05 18:04 | Inpatient (IN) | payer OTHER ==
[2018-09-05] MEDS ORDERED: NS 1,000 ML IV ONE (18:51)
--- NOTE | 2018-09-05 18:53 | EDPHY ---
H & P Stated Complaint: SOB for 2 days Time Seen by Provider: 09/05/18 18:53 HPI/ROS: HPI CHIEF COMPLAINT: Shortness of breath HISTORY OF PRESENT ILLNESS: This is a 68-year-old male presents emergency room shortness of breath. Patient states that he was in [facility] and in the emergency room for 3-4 hours getting breathing treatments for asthma. This was yesterday. He states he was discharged from the ER felt much better. Had a normal night last night. Today he flew back to [place] in states he was profoundly short of breath on the flight. He arrived at [facility] and then decided come to the emergency room. He arrives to the emergency room stating short of breath he denies any chest pain. Upon arrival it is noted his heart rate is in the 170s to 180s. Past Medical History: Asthma, epistaxis Past Surgical History: Denies recent surgery Social History: Denies daily use drugs alcohol tobacco. Family History: Noncontributory ROS REVIEW OF SYSTEMS: 10 Systems were reviewed and negative with the exception of the elements mentioned in the history of present illness. Exam Constitutional triage nursing summary reviewed, vital signs reviewed, awake/ alert. Vital signs noted at triage tachycardic 170s. Eyes normal conjunctivae and sclera, EOMI, PERRLA. HENT normal inspection, atraumatic, moist mucus membranes, no epistaxis, neck supple/ no meningismus, no raccoon eyes. Respiratory clear to auscultation bilaterally, normal breath sounds, no respiratory distress, no wheezing. Cardiovascular tachycardia, regular rhythm, no murmur, no edema, distal pulses normal. Gastrointestinal soft, non-tender, no rebound, no guarding, normal bowel sounds, no distension, no pulsatile mass. Genitourinary no CVA tenderness. Musculoskeletal no midline vertebral tenderness, full range of motion, no calf swelling, no tenderness of extremities, no meningismus, good pulses, neurovascularly intact. Skin pink, warm, & dry, no rash, skin atraumatic. Neurologic awake, alert and oriented x 3, AAOx3, moves all 4 extremities equally, motor intact, sensory intact, CN II-XII intact, normal cerebellar, normal vision, normal speech. Psychiatric normal mood/affect. Heme/Lymph/Immune no lymphadenopathy. Differential Diagnosis: Differential diagnosis includes but is not limited to: ACS, atypical chest pain, pneumothorax, pneumonia, pulmonary embolism, aortic dissection, congestive heart failure, tumor, musculoskeletal pain, esophageal pain, GERD, peptic ulcer disease, pancreatitis Medical Decision Making: Plan for this patient patient noted be tachycardic in the 170s to 180s. He has been moved from ER room 22 to ER room 5 for closer monitoring. I did send his EKG to Dr. De La Rosa, who evaluated the EKG. He believes this to be AFib versus a flutter with aberrancy. New left bundle branch block. Patient does not have chest pain Plan for troponin Plan for diltiazem And admission to the hospital. Re-evaluation: 1910: Dr. De La Rosa Consulted: Requesting IV diltiazem, IV Lovenox point care troponin and admission. IV Dilt bolus ordered 10 mg IV Dilt drip. EKG interpretation by me on record in [employer] system. Impression time of EKG 1848, tachycardia 173, wide complex, appears to have a new left bundle branch block based on his old EKG in 2016 however no acute ischemia, he has an irregular irregular rhythm concerning for AFib versus a flutter with aberrancy. Patient's troponin 0.[address] De La Rosa Would like a stat echocardiogram Stat echocardiogram ordered at 7:10 p.m.. Updated patient Patient be given IV diltiazem to lower his heart rate. Patient be admitted to the hospitalist service Echocardiogram pending 1918 patient has no chest pain Chest x-ray shows cardiomegaly. Otherwise no evidence of failure. Critical Care: Total Critical Care Time Spent Managing this Patient: 65 Minutes. This time was spent Exclusively with this patient. This Care was exclusive of procedures. The Organ System/life at risk was cardiac AFib with RVR, shortness of breath, new left bundle branch block with positive troponin This Patient was in Critical Condition because AFib with RVR, shortness of breath, new left bundle branch block with positive troponin 1943: The patient received IV diltiazem. 1947: Hospitalist service consult agrees to admit. Dr. De La Rosa bedside evaluating the patient with echocardiogram. Plan for admission to the hospitalist service Dr. Sandy consulted. Agrees for admission Admit to PCU, AFib RVR, with Aberrancy Echocardiogram reviewed by Dr. De La Rosa, this shows an ejection fraction 15% in aortic stenosis. There is wall motion abnormality. Plan will be to go to cardiac catheterization with Dr. De La Rosa. Request the hospitalist service admit. Patient go to the ICU after cardiac catheterization. Source: Patient - Personal History Current Tetanus Diphtheria and Acellular Pertussis (TDAP): Yes - Medical/Surgical History Hx Asthma: Yes Hx Chronic Respiratory Disease: No Hx Diabetes: No Hx Cardiac Disease: No Hx Renal Disease: No Hx Cirrhosis: No Hx Alcoholism: No Hx HIV/AIDS: No Hx Splenectomy or Spleen Trauma: No Other PMH: asthma, heart murmer, L knee injury, hernias. nose cauterized 06/24 - Social History Smoking Status: Former smoker Constitutional: Initial Vital Signs Temperature (C) 36.6 C 09/05/18 18:14 Heart Rate 122 H 09/05/18 18:14 Respiratory Rate 18 09/05/18 18:14 Blood Pressure 104/82 H 09/05/18 18:14 O2 Sat (%) 93 09/05/18 18:14 O2 Delivery Mode Room Air O2 (L/minute) 15 Allergies/Adverse Reactions: No Known Allergies Allergy (Verified 09/06/18 09:47) Home Medications: Medication Instructions Recorded Albuterol [Proventil Inhaler HFA 1 - 2 puffs IH Q4H PRN 06/24/17 (*)] Budesonide/Formoterol 160/4.5 2 puffs IH BID 06/25/17 [Symbicort 160-4.5 Mcg Inh (*)] Omeprazole 20 mg PO HS 09/06/18 Medical Decision Making - Data Points Laboratory Results: Laboratory Results 09/05/18 19:00 09/05/18 19:00 Medications Given: Hydrocodone Bitart/Acetaminophen ([place] 5/325) 1 - 2 tab PO Q4HRS PRN PRN Reason: Pain, Moderate Stop: 09/15/18 21:43 Last Admin: 09/07/18 09:27 Dose: 2 tab Albuterol (Proventil Inhaler) 1 - 2 puffs IH Q4H PRN PRN Reason: SHORT OF BREATH/DYSPNEA Stop: 03/05/19 10:41 Last Admin: 09/07/18 09:14 Dose: 2 puffs Atorvastatin Calcium (Lipitor) 40 mg PO DAILY [facility]ITA Stop: 03/05/19 08:59 Last Admin: 09/07/18 09:25 Dose: 40 mg Budesonide/Formoterol Fumarate (Symbicort 160-4.5 Mcg Inhaler) 2 puffs IH BID [facility] Stop: 03/05/19 10:59 Last Admin: 09/07/18 09:15 Dose: 2 puffs Furosemide (Lasix) 40 mg PO BID@0900,1500 [facility] Stop: 03/05/19 09:29 Last Admin: 09/07/18 14:28 Dose: 40 mg Lisinopril (Zestril) 2.5 mg PO DAILY [facility] Stop: 03/05/19 09:29 Last Admin: 09/07/18 09:24 Dose: 2.5 mg Midazolam HCl (Versed) 1 mg IVP Q6H PRN PRN Reason: AGITATION/ANXIETY Stop: 03/05/19 10:38 Last Admin: 09/07/18 07:55 Dose: 1 mg Morphine Sulfate (Morphine) 2 mg IVP Q1HR PRN PRN Reason: Pain, Severe Stop: 09/15/18 21:43 Last Admin: 09/07/18 08:42 Dose: 2 mg Oxycodone/Acetaminophen (Percocet 5/325) 1 - 2 tab PO Q4HRS PRN PRN Reason: Pain, Severe Able to Take PO Stop: 09/15/18 21:43 Last Admin: 09/06/18 17:47 Dose: 1 tab Discontinued Medications Diltiazem HCl (Cardizem 25 Mg/5 Ml Vial) 10 mg IVP EDNOW ONE Stop: 09/05/18 19:10 Last Admin: 09/05/18 19:15 Dose: 10 mg Enoxaparin Sodium (Lovenox) 80 mg SC EDNOW ONE Stop: 09/05/18 19:46 Last Admin: 09/05/18 19:45 Dose: 80 mg Enoxaparin Sodium (Lovenox) 80 mg SC BID [facility] Stop: 03/05/19 08:59 Last Admin: 09/06/18 21:34 Dose: 80 mg Sodium Chloride (Ns) 1,000 mls @ 0 mls/hr IV EDNOW ONE; Wide Open PRN Reason: Protocol Stop: 09/05/18 18:52 Last Admin: 09/05/18 19:01 Dose: 1,000 mls Diltiazem/Dextrose (Diltiazem 125mg/125ml (Premix)) 125 mls @ 0 mls/hr IV EDNOW ONE; Titrate PRN Reason: Protocol Stop: 09/05/18 19:31 Last Admin: 09/05/18 19:30 Dose: 125 mls Amiodarone HCl (Amiodarone Hcl) 100 mls @ 600 mls/hr IV ONCE ONE Stop: 09/05/18 20:18 Last Admin: 09/05/18 20:14 Dose: 100 mls Amiodarone HCl (Amiodarone Hcl) 200 mls @ 0 mls/hr IV EDNOW ONE PRN Reason: Per Protocol Stop: 09/05/18 20:10 Last Admin: 09/05/18 20:27 Dose: 200 mls Amiodarone HCl (Amiodarone Hcl) 100 mls @ 600 mls/hr IV EDNOW ONE Stop: 09/05/18 20:39 Last Admin: 09/05/18 20:30 Dose: Not Given Sodium Chloride (Ns) 1,000 mls @ 50 mls/hr IV CONT SMITA Stop: 03/04/19 20:59 Last Admin: 09/05/18 21:47 Dose: 1,000 mls Amiodarone HCl 540 mg/ (Dextrose) 300 mls @ 16.667 mls/hr IV ONCE PRN; Protocol PRN Reason: HR PERSISTS >130 BPM Stop: 03/05/19 00:12 Last Admin: 09/06/18 00:41 Dose: 300 mls Magnesium Sulfate/Dextrose (Magnesium Sulf 1 Gm (Premix)) 100 mls @ 100 mls/hr IV ONCE ONE Stop: 09/06/18 21:57 Last Admin: 09/06/18 21:33 Dose: 100 mls Pantoprazole Sodium (Protonix) 40 mg IVP DAILY SMITA Stop: 03/05/19 08:59 Last Admin: 09/06/18 09:03 Dose: 40 mg Potassium Chloride (Klor-Con) 20 meq PO ONCE ONE PRN Reason: Protocol Stop: 09/06/18 20:59 Last Admin: 09/06/18 21:33 Dose: 20 meq Potassium Chloride (Klor-Con) 10 meq PO ONCE ONE PRN Reason: Protocol Stop: 09/07/18 06:20 Last Admin: 09/07/18 09:24 Dose: 10 meq Point of Care Test Results: Chemistry 09/05/18 19:05 POC Troponin I 0.22 ng/mL H ng/mL (0.00-0.08) Departure - Departure Disposition: [facility] Inpatient Acute Clinical Impression: Atrial fibrillation with RVR Cardiomyopathy Qualifiers: Cardiomyopathy type: unspecified Qualified Code(s): I42.9 - Cardiomyopathy, unspecified Condition: Critical
[2018-09-05] MEDS ORDERED: DILTIAZEM 25 MG/5 ML VIAL IVP ONE (19:09)
[2018-09-05] MEDS ORDERED: DILTIAZEM 125 MG in D5W 125 ML IV ONE (19:09)
[2018-09-05 19:14] LABS: PLATELET COUNT 200 10^3/uL (150-400)
[2018-09-05] MEDS ORDERED: ENOXAPARIN 80 MG/0.8 ML SYR SC ONE ×2 (19:19→19:45)
[2018-09-05 19:23] LABS: INR 1.07 (0.83-1.16); PROTIME(PATIENT) 14.1 SEC (12.0-15.0)
[2018-09-05] MEDS ORDERED: DILTIAZEM HCL/D5W 125 ML IV ONE (19:30)
[2018-09-05] MEDS ORDERED: AMIODARONE HCL 200 ML IV ONE (20:09)
[2018-09-05] MEDS ORDERED: AMIODARONE HCL 100 ML IV ONE ×2 (20:09→20:30)
--- NOTE | 2018-09-05 20:24 | PDGENHP ---
History and Physical - Chief Complaint Shortness of breath - History of Present Illness The patient is a 68-year-old male with past medical history of asthma who presented to the emergency room with increased shortness of breath. According to his and him he developed an upper respiratory tract infection and early July that he feels like he never really recovered from. Earlier this week he was in [place] for a [employer] show and while the road in a car with some dogs which he said caused to have an acute asthma attack. He went to the emergency room there was given multiple nebulizer treatments, an EKG was obtained, and he was discharged. This morning he said he felt like he never really recovered. He gave himself multiple nebulizer treatments today and shortness of breath really did not resolve. He felt like the multiple nebs caused his heart to race and because shortness of breath continued he decided to come to the emergency room. His family has noticed that he has been more short of breath with any exertion although he denies this. He denied any overt chest pain, cough, new lower extremity edema, or orthopnea. In the ER patient was noted to be in AFib with RVR with rates near 200. He had a positive troponin and Cardiology was consulted who ordered a stat echo. His echo showed an EF of 15-20%. The decision was made started numb on amiodarone gtt and he was taken to the boat laborer for further evaluation History Information - Allergies/Home Medication List Allergies/Adverse Reactions: No Known Allergies Allergy (Verified 09/06/18 09:47) Home Medications: Albuterol [Proventil Inhaler HFA (*)] 1 - 2 puffs IH Q4H PRN 06/24/17 [Last Taken 09/05/18] Budesonide/Formoterol 160/4.5 [Symbicort 160-4.5 Mcg Inh (*)] 2 puffs IH BID [Last Taken 09/05/18] Omeprazole 20 mg PO HS 09/06/18 [Last Taken Unknown] I have personally reviewed and updated: family history, medical history, social history, surgical history - Past Medical History no pertinent PMH Additional medical history: asthma - Surgical History Additional surgical history: hernia, - Family History Additional family history: Denies family hx of bleeding - Social History Smoking Status: Former smoker Review of Systems Review of Systems: ROS: 10pt was reviewed & negative except for what was stated in HPI & below Physical Exam Physical Exam: Temp Pulse Resp BP Pulse Ox 36.6 C 122 H 18 104/82 H 93 09/05/18 18:14 09/05/18 18:14 09/05/18 18:14 09/05/18 18:14 09/05/18 18:14 Lab Data & Imaging Review 09/06/18 04:15 09/06/18 04:15 WBC 15.21 10^3/uL (3.80-9.50) H 09/05/18 19:00 RBC 4.81 10^6/uL (4.40-6.38) 09/05/18 19:00 Hgb 15.8 g/dL (13.7-17.5) 09/05/18 19:00 Hct 45.7 % (40.0-51.0) 09/05/18 19:00 MCV 95.0 fL (81.5-99.8) 09/05/18 19:00 MCH 32.8 pg (27.9-34.1) 09/05/18 19:00 MCHC 34.6 g/dL (32.4-36.7) 09/05/18 19:00 RDW 13.3 % (11.5-15.2) 09/05/18 19:00 Plt Count 200 10^3/uL (150-400) 09/05/18 19:00 MPV 10.4 fL (8.7-11.7) 09/05/18 19:00 Neut % (Auto) 74.9 % (39.3-74.2) H 09/05/18 19:00 Lymph % (Auto) 14.6 % (15.0-45.0) L 09/05/18 19:00 [place] % (Auto) 9.6 % (4.5-13.0) 09/05/18 19:00 Eos % (Auto) 0.1 % (0.6-7.6) L 09/05/18 19:00 Baso % (Auto) 0.1 % (0.3-1.7) L 09/05/18 19:00 Nucleat RBC Rel Count 0.0 % (0.0-0.2) 09/05/18 19:00 Absolute Neuts (auto) 11.40 10^3/uL (1.70-6.50) H 09/05/18 19:00 Absolute Lymphs (auto) 2.22 10^3/uL (1.00-3.00) 09/05/18 19:00 Absolute Monos (auto) 1.46 10^3/uL (0.30-0.80) H 09/05/18 19:00 Absolute Eos (auto) 0.01 10^3/uL (0.03-0.40) L 09/05/18 19:00 Absolute Basos (auto) 0.02 10^3/uL (0.02-0.10) 09/05/18 19:00 Absolute Nucleated RBC 0.00 10^3/uL (0-0.01) 09/05/18 19:00 Immature Gran % 0.7 % (0.0-1.1) 09/05/18 19:00 Immature Gran # 0.10 10^3/uL (0.00-0.10) 09/05/18 19:00 PT 14.1 SEC (12.0-15.0) 09/05/18 19:00 INR 1.07 (0.83-1.16) 09/05/18 19:00 APTT 24.9 SEC (23.0-38.0) 09/05/18 19:00 D-Dimer 0.52 ug/mLFEU (0.00-0.50) H 09/05/18 19:00 Sodium 136 mEq/L (135-145) 09/05/18 19:00 Potassium 4.2 mEq/L (3.5-5.2) 09/05/18 19:00 Chloride 106 mEq/L (97-110) 09/05/18 19:00 Carbon Dioxide 19 mEq/l (22-31) L 09/05/18 19:00 Anion Gap 11 mEq/L (6-14) 09/05/18 19:00 BUN 35 mg/dL (7-23) H 09/05/18 19:00 Creatinine 1.4 mg/dL (0.7-1.3) H 09/05/18 19:00 Estimated GFR 51 09/05/18 19:00 Glucose 140 mg/dL (70-100) H 09/05/18 19:00 Calcium 9.0 mg/dL (8.5-10.4) 09/05/18 19:00 Magnesium 1.9 mg/dL (1.6-2.3) 09/05/18 19:00 POC Troponin I 0.22 ng/mL (0.00-0.08) H 09/05/18 19:05 NT-Pro-B Natriuret Pep 4850 pg/mL (0-125) H 09/05/18 19:00 Assessment & Plan Assessment: 68-year-old male with past medical history of asthma presented to the emergency room with increased shortness of breath. Found to have a new left bundle on EKG , AFib with RVR, and a positive troponin. Cardiology performed bedside echo which showed new severe heart failure. Patient taken for urgent cardiac catheterization elevated trop- initial troponin 0.22, EKG with new left bundle, and AFib with RVR. Troponin may be secondary to demand ischemia in the setting of AFib with RVR, but new left bundle concerning. Cardiology was consulted who obtained an echo showing a severely reduced ejection fraction and severe aortic stenosis. I discussed the case with the network developer who is planning to take the patient to the boat laborer now. -cycle troponin -cardiac catheterization now -Lovenox 1 milligram/kilogram given -official echo report pending -lipid panel, aspirin, statin -post cardiac catheterization care -on baloon pump per cards for hypotension CHF- patient has no history of congestive heart failure. BNP elevated to 4850. Echo emergently done in the ER showing severely reduced ejection fraction. Etiology may be related to ACS. -cardiology consulted -awaiting cardiac catheterization -will need medical management including beta [place] LENA-inhibitor and Aldactone Afib with RVR- EKG with new left bundle in AFib with RVR. Started on amiodarone drip in the emergency room. if any further afib with rates above 120- 130 restart amiodarone, but no bolus. NATTY- patient does not look hypovolemic. This is likely cardiorenal syndrome and should improve with medical optimization of his heart failure. He is going to cardiac catheterization now which, with the dye load necessary will likely worsen his renal dysfunction. -gentle hydration -monitor renal function closely -minimize nephrotoxin drugs Leukocytosis- no evidence of infection currently. Likely acute phase reactant. Will monitor for any signs and symptoms of infection -repeat H&H in morning Prophylaxis- SCDs. Given Lovenox 1 milligram/kilogram in ER Fluids- intravenous saline Electrolytes-within normal limits Nutrition-NPO Cor-full Dispo-inpatient for acute systolic congestive heart failure, possible ACS, AFib with RVR I spent 74 minutes of critical care time on the management of this patient with over half spent on direct patient care.
--- NOTE | 2018-09-05 20:25 | PDCARCONS ---
Cardiology Consult Reason for Consult: Shortness of breath. Left bundle-branch block. Atrial fibrillation Chief Complaint: Shortness of breath Requesting Physician: Krishan Whiteside MD History of Present Illness: I was asked to visit with this very pleasant gentleman in the emergency department by Dr. Krishan Whiteside. His and RN were present in the room at the time of this interview in the ED. This is a 68-year-old male who has been progressively short of breath over the last 3-4 years. Shortness of breath has been described as mild and has been ascribed to his knee injury and possibly related to old age. He was in the emergency department in [place] yesterday with complaints of severe shortness of breath, was given several doses of albuterol and felt better. He took the flight to [place] today. At [place], he was extremely short of breath and had to use a wheelchair to get to his car and subsequently was driven to [facility] ED. He received intravenous diltiazem in the ED after he was noted to have atrial fibrillation with heart rates in the 160s. This has improved his shortness of breath somewhat but he is still short of breath at rest. He denies any chest pain at rest or with exertion previously. No syncope. 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) Past Medical History: - Past Medical History Additional medical history: Hypertriglyceridemia - Social History Smoking Status: Former smoker Physical Exam Physical Exam: Temp Pulse Resp BP Pulse Ox 36.6 C 122 H 18 104/82 H 93 09/05/18 18:14 09/05/18 18:14 09/05/18 18:14 09/05/18 18:14 09/05/18 18:14 Constitutional: obese, uncomfortable Eyes: PERRL, anicteric sclera, EOMI Ears, Nose, Mouth, Throat: moist mucous membranes, hearing normal Cardiovascular: systolic murmur, irregularly irregular Respiratory: respiratory distress (Mild respiratory distress at rest) Gastrointestinal: soft, non-tender abdomen Neurologic: AAOx3 Psychiatric: interacting appropriately, not anxious, not encephalopathic Lab and Imaging 09/05/18 19:00 09/05/18 19:00 WBC 15.21 10^3/uL (3.80-9.50) H 09/05/18 19:00 RBC 4.81 10^6/uL (4.40-6.38) 09/05/18 19:00 Hgb 15.8 g/dL (13.7-17.5) 09/05/18 19:00 Hct 45.7 % (40.0-51.0) 09/05/18 19:00 MCV 95.0 fL (81.5-99.8) 09/05/18 19:00 MCH 32.8 pg (27.9-34.1) 09/05/18 19:00 MCHC 34.6 g/dL (32.4-36.7) 09/05/18 19:00 RDW 13.3 % (11.5-15.2) 09/05/18 19:00 Plt Count 200 10^3/uL (150-400) 09/05/18 19:00 MPV 10.4 fL (8.7-11.7) 09/05/18 19:00 Neut % (Auto) 74.9 % (39.3-74.2) H 09/05/18 19:00 Lymph % (Auto) 14.6 % (15.0-45.0) L 09/05/18 19:00 [place] % (Auto) 9.6 % (4.5-13.0) 09/05/18 19:00 Eos % (Auto) 0.1 % (0.6-7.6) L 09/05/18 19:00 Baso % (Auto) 0.1 % (0.3-1.7) L 09/05/18 19:00 Nucleat RBC Rel Count 0.0 % (0.0-0.2) 09/05/18 19:00 Absolute Neuts (auto) 11.40 10^3/uL (1.70-6.50) H 09/05/18 19:00 Absolute Lymphs (auto) 2.22 10^3/uL (1.00-3.00) 09/05/18 19:00 Absolute Monos (auto) 1.46 10^3/uL (0.30-0.80) H 09/05/18 19:00 Absolute Eos (auto) 0.01 10^3/uL (0.03-0.40) L 09/05/18 19:00 Absolute Basos (auto) 0.02 10^3/uL (0.02-0.10) 09/05/18 19:00 Absolute Nucleated RBC 0.00 10^3/uL (0-0.01) 09/05/18 19:00 Immature Gran % 0.7 % (0.0-1.1) 09/05/18 19:00 Immature Gran # 0.10 10^3/uL (0.00-0.10) 09/05/18 19:00 PT 14.1 SEC (12.0-15.0) 09/05/18 19:00 INR 1.07 (0.83-1.16) 09/05/18 19:00 APTT 24.9 SEC (23.0-38.0) 09/05/18 19:00 D-Dimer 0.52 ug/mLFEU (0.00-0.50) H 09/05/18 19:00 Sodium 136 mEq/L (135-145) 09/05/18 19:00 Potassium 4.2 mEq/L (3.5-5.2) 09/05/18 19:00 Chloride 106 mEq/L (97-110) 09/05/18 19:00 Carbon Dioxide 19 mEq/l (22-31) L 09/05/18 19:00 Anion Gap 11 mEq/L (6-14) 09/05/18 19:00 BUN 35 mg/dL (7-23) H 09/05/18 19:00 Creatinine 1.4 mg/dL (0.7-1.3) H 09/05/18 19:00 Estimated GFR 51 09/05/18 19:00 Glucose 140 mg/dL (70-100) H 09/05/18 19:00 Calcium 9.0 mg/dL (8.5-10.4) 09/05/18 19:00 Magnesium 1.9 mg/dL (1.6-2.3) 09/05/18 19:00 POC Troponin I 0.22 ng/mL (0.00-0.08) H 09/05/18 19:05 NT-Pro-B Natriuret Pep 4850 pg/mL (0-125) H 09/05/18 19:00 Visualized and Interpreted Chest x-ray results: Yes Chest X-ray Interpretation: other (Cardiomegaly) EKG Interpretation: Positive for: left bundle branch block (Atrial fibrillation with rapid ventricular response, left bundle-branch block is new compared to 2017) Telemetry: Left bundle-branch block, atrial fibrillation Echocardiogram: LV ejection fraction of 15-20%, wall motion abnormalities as noted in formal report, moderate mitral regurgitation, moderate tricuspid regurgitation, moderate to severe aortic stenosis A/P Assessment: 1. Atrial fibrillation with rapid ventricular response 2. New onset left bundle-branch block, new since EKG in 2017 3. Positive troponin 4. Cardiomyopathy with wall motion abnormalities 5. Moderate to severe aortic stenosis 6. Moderate mitral regurgitation 7. Moderate tricuspid regurgitation 8. Hypertriglyceridemia 9. Former smoker 10. Obesity the but Plan: Patient presenting with acute dyspnea, atrial fibrillation with rapid ventricular response, positive troponin and new onset left bundle-branch block. I would like for the patient to have coronary angiography tonight to assess for acute coronary syndrome. I have discussed this with my partner Dr. Ramón Camarena who is here to perform the coronary angiography. Risks of the procedure including , mi, CVA, cardiac tamponade, renal failure, vascular access complications, allergic reaction etc were discussed with the patient and his . Further management will depend on findings of coronary angiography: 1. If multi-vessel coronary artery disease with moderate to severe aortic stenosis patient will benefit from CABG and aortic and mitral valve surgery 2. If single-vessel coronary artery disease with acute occlusion of the LAD, will benefit from PCI 3. Will need evaluation of aortic valve - may represent low gradient severe related to low LVEF Patient did receive 1 dose of Lovenox in ED. Further recommendations to follow based on coronary angiogram findings
[2018-09-05] MEDS ORDERED: LIDOCAINE 1% 300 MG/30 ML SDV ONE (20:28)
[2018-09-05] MEDS ORDERED: fentaNYL 100 MCG/2 ML INJ ONE (20:28)
[2018-09-05] MEDS ORDERED: IOHEXOL 350mgI/ML (OMNIPAQUE) 150 ML BTL IV ONE (20:29)
[2018-09-05] MEDS ORDERED: MIDAZOLAM 2 MG/2 ML VIAL ONE (20:29)
[2018-09-05] MEDS ORDERED: NITROGLYCERIN 0.4 MG BTL SL PRN (20:33)
[2018-09-05] MEDS ORDERED: ACETAMINOPHEN 325 MG TAB PO PRN (20:33)
[2018-09-05] MEDS ORDERED: ONDANSETRON 4 MG/2 ML VIAL ONE (20:53)
[2018-09-05] MEDS ORDERED: PHENYLEPHRINE HCL 100 MCG/ML SYR ONE (20:55)
[2018-09-05] MEDS ORDERED: DOPamine/DEXTROSE 400 MG/250 ML BAG IV ONE (20:58)
[2018-09-05] MEDS ORDERED: NS 1,000 ML IV SCH (21:00)
--- NOTE | 2018-09-05 21:42 | ECHO ---
[email or web address] [address] [address] Main: [phone] Fax: Transthoracic Echocardiogram Name: JONY LEDESMA MR#: [id number] Study Date: 09/05/2018 Study Time: 07:46 PM Date of : 1950 Age: 68 year(s) Height: 167.6 cm (66 in.) Weight: 81.65 kg (180 lb.) BSA: 1.91 m2 Gender: Male Examination: Echo Indication: Abnormal EKG Image Quality: Fair Contrast: Requested by: Krishan Franklin BP: / Heart Rate: Rhythm: Indication: Abnormal EKG Procedure Staff Websphere Portal Architect: Marley Willson RDCS Reading Physician: Doyle De La Rosa MD Requesting Provider: Conclusions: Dilated left ventricle. Severely reduced systolic LV function. The ejection fraction is estimated to be 15-20 %. LV septal and inferior gardner are akinetic. All remaining LV segments are hypokinetic.. Moderate mitral valve regurgitation is present. Moderate calcific aortic valve stenosis. AV max PG is 37mmHG. AV mean PG is 21. Higher gradients were obtained post long RR interval. Mild tricuspid regurgitation is present. Mildly dilated ascending aorta measuring 4.5 cm. Trivial anterior pericardial effusion. Measurements: Chambers Valvular Assessment AV/MV Valvular Assessment TV/PV Normal Normal Normal Name Value Range Name Value Range Name Value Range LVDd (2D): 6.3 cm (4.2 cm-5.9 AV Vmax: 3.04 m/s (1 m/s-1.7 TR Vmax: 2.61 mm/s ( - ) cm) m/s) TR PGmax: 27 mmHg ( - ) LVOTd 2.0 cm 2.0 cm mm AV maxP mmHg ( - ) syst. PAP: 32 mmHg ( - ) LVEF (MOD4): 17 % (>=55 %) AV meanP mmHg ( - ) EF Range: 15-20 % LVOT Vmax: 0.70 m/s (0.7 m/s-1.1 m/s) NATALIA (Vmax): 0.7 cm2 ( - ) NATALIA (VTI): 0.7 cm ( - ) Continued Measurements: Valvular Assessment TV/PV Name Value CVP (est.): 5 mmHg Patient: JONY LEDESMA Study Date: 09/05/2018 Page 1 of 2 07:46 PM Additional Vessels Name Value Ao Ascendin.5 cm Findings: Left Ventricle: Dilated left ventricle. Severely reduced systolic LV function. The ejection fraction is estimated to be 15-20 %. LV septal and inferior gardner are akinetic. All remaining LV segments are hypokinetic.. Mitral Valve: The mitral valve is normal in appearance. Moderate mitral valve regurgitation is present. Aortic Valve: Severe aortic valve calcification is present. Mild aortic valve regurgitation is present. Moderate calcific aortic valve stenosis. AV max PG is 37mmHG. AV mean PG is 21. Higher gradients were obtained post long RR interval. Tricuspid Valve: The tricuspid valve appears normal. Mild tricuspid regurgitation is present. The pulmonary artery pressure is normal. Pulmonic Valve: Pulmonary valve not well visualized. Aorta: Mildly dilated ascending aorta measuring 4.5 cm. Pericardium: Trivial anterior pericardial effusion. (No Signature Object) Patient: JONY LEDESMA Study Date: 09/05/2018 Page 2 of 2 07:46 PM [id number]
[2018-09-05] MEDS ORDERED: OXYCODONE/APAP 5/325 TAB PO PRN (21:44)
[2018-09-05] MEDS ORDERED: ATROPINE SULFATE 1 MG/10 ML SYR IVP PRN (21:44)
[2018-09-05] MEDS ORDERED: ONDANSETRON 4 MG/2 ML VIAL IVP PRN (21:44)
--- NOTE | 2018-09-05 22:31 | CPEKG ---
Test Reason : OPEN Blood Pressure : / mmHG Vent. Rate : 173 BPM Atrial Rate : 178 BPM P-R Int : 200 ms QRS Dur : 143 ms QT Int : 314 ms P-R-T Axes : 070 -76 083 degrees QTc Int : 533 ms Extreme tachycardia with wide complex, no further rhythm analysis attempted Confirmed by Gal Bennett ([id number]) on 09/05/2018 10:30:33 PM Referred By: Krishan Whiteside Confirmed By:Gal Bennett
[2018-09-05] MEDS: HYDROCODONE/APAP 5/325 TAB PO PRN (22:34)
[2018-09-06] MEDS ORDERED: AMIODARONE A.FIB-18HR INFSN (ORDER 3/3) IV PRN (00:13)
--- NOTE | 2018-09-06 03:28 | CPIP ---
[f rep st] INVASIVE CARDIAC PROCEDURE DATE OF PROCEDURE: 09/05/2018 PROCEDURES PERFORMED: 1. Coronary angiography. 2. Left ventricular pressures. 3. Placement of intra-aortic balloon pump. INDICATIONS: 1. Cardiomyopathy. 2. Hemodynamic instability. ACCESS: Patient was prepped and draped in sterile fashion. 1% lidocaine was used to anesthetize the right inguinal region. A 6-[place] African introducer sheath was placed selectively into the right common fe moral artery via modified Seldinger technique. The 6-South African introducer sheath was later exchanged fo r an 8-South African introducer sheath via exchange wire technique. A 6-South African introducer sheath was also p laced in the right common femoral vein via modified Seldinger technique to allow for IV pressor suppo rt. CORONARY ANGIOGRAPHY: A 6-[place] African JL4 was advanced to the left main coronary artery and images obtain ed. The left main coronary artery is short and almost represented dual ostia. The left main coronar y artery bifurcated into an LAD and circumflex coronary arteries. The left main coronary artery was free of any significant disease. The left anterior descending coronary artery gave rise to 1 promine nt diagonal branch as well as several smaller diagonal arteries. The left anterior descending jeffers ry artery had a long segmental 50% stenosis in the mid vessel, just after the takeoff of the first di agonal artery. The first diagonal artery was a large vessel and had a proximal segmental 20% to 30% stenosis present. The circumflex coronary artery was a large vessel and was dominant. The circumfle x coronary artery had mild diffuse disease throughout. In the proximal segment, there were sequentia l 20% stenosis present. A 6-[place] African JR4 was advanced to the right coronary artery and nonselective im ages of the right coronary artery were obtained. The right coronary artery is nondominant. The righ t coronary artery is small. The right coronary artery appeared free of any significant disease. LEFT VENTRICULAR PRESSURES: A 6-[place] African pigtail catheter was advanced into the aorta and several atte mpts were made at trying to pass into the left ventricle. These were unsuccessful. The 6-South African pig tail catheter was then exchanged for a 6-South African JR4, and the 6-[place] African JR4 was then passed into the le ft ventricle with help of the J-wire. The left ventricular pressures were then obtained. There was a 20 mmHg gradient on pullback. INTRA-AORTIC BALLOON PUMP PLACEMENT: An intra-aortic balloon pump was paced emergently secondary to hemodynamic instability. Upon arriving in the cardiac catheterization laboratory, patient was diapho retic, ashen, and hypotensive. The 6-South African introducer sheath was exchanged for an 8-South African introduc er sheath via exchange wire technique, a 40 cc balloon pump was then placed in the aorta and position verified by imaging and the intra-aortic balloon pump was then attached to appropriate equipment and used to augment pressures appropriately. COMPLICATIONS: None. CONCLUSIONS: 1. Ghok-qw-[id number] coronary artery disease without flow limitation. 2. 20 mmHg [id number]-zj-[id number] gradient across the aortic valve. 3. Status post successful placement of intra-aortic balloon pump. /[id number]/MODL
[2018-09-06 04:28] LABS: PLATELET COUNT 164 10^3/uL (150-400)
[2018-09-06] MEDS ORDERED: ENOXAPARIN 80 MG/0.8 ML SYR SC SCH (09:00)
[2018-09-06] MEDS ORDERED: PANTOPRAZOLE SODIUM 40 MG VIAL IVP SCH (09:00)
[2018-09-06] MEDS: ATORVASTATIN CALCIUM 40 MG TAB PO SCH (09:03)
[2018-09-06] MEDS: ENOXAPARIN 80 MG/0.8 ML SYR SC SCH ×2 (09:03→21:34)
--- NOTE | 2018-09-06 09:31 | PDCARPN ---
Cardiology Progress Note Assessment/Plan: Assessment: 1. Nonischemic cardiomyopathy 2. Moderate aortic stenosis 3. Moderate mitral regurgitation 4. Atrial fibrillation 5. IABP in place for hemodynamic instability Plan: 1. DC amiodarone 2. Give Lovenox today, hold after tonight's dose for potential IABP removal tomorrow morning. Will need long-term anticoagulation with DOAC 3. Start David inhibitors and diuretics today while IABP is in place, hold off on beta-blockers for now 4. Advised patient to avoid alcohol 5. Will need dobutamine stress echo once stable to assess severity of aortic stenosis 09/06/18 09:29 Subjective: Feels better this morning, no orthopnea. Reports no chest pain. Converted to sinus rhythm at 7:52 a.m. Reviewed/Discussed With: multidisciplinary team Time Spent with Patient: greater than 35 minutes Time Spent with Patient: Greater than 35 minutes spent on this patients care, greater than 50% of time spent counseling, educating, and coordinating care regarding the above mentioned plan. Objective: Vital Signs (8 Hrs) Temp Pulse Resp BP Pulse Ox 09/06/18 09:00 80 20 100/85 H 91 L 09/06/18 08:00 36.6 C 76 13 93/61 L 95 09/06/18 07:57 75 16 92/53 L 94 09/06/18 07:00 111 H 15 85/66 L 94 09/06/18 06:00 119 H 18 95 09/06/18 05:00 116 H 12 94 09/06/18 04:00 115 H 12 94 09/06/18 03:00 108 H 12 94 09/06/18 02:00 128 H 17 94 Intake/Output (24 Hrs) 09/04/18 09/05/18 09/06/18 11:59 11:59 11:59 Intake Total 1445 Output Total 210 Balance 1235 Intake: Oral (ml) 500 IV Intake (ml) 500 IV Infused (ml) 445 Amiodarone HCl 540 mg In 360 D5w 300 ml @ 16.667 mls/ hr IV ONCE PRN Rx#: [id number] Ns 1,000 ml @ 50 mls/hr 85 IV CONT SMITA Rx#: [id number] Output: Urine (ml) 210 Urinal 210 Other: Weight 81.647 kg Number of Stools Urinal 0 Result Diagrams: 09/06/18 04:15 09/06/18 04:15 Cardiac Labs: Cardiac Lab Results (72 Hrs) 09/06/18 09/06/18 08:10 04:15 Troponin I 0.329 H 0.328 H Telemetry: Sinus rhythm ICD10 Worksheet Patient Problems: Problems Problem Status Onset Left-sided epistaxis Acute Atrial fibrillation with RVR Acute
[2018-09-06] MEDS: FUROSEMIDE 40 MG TAB PO SCH ×2 (09:49→15:04)
[2018-09-06] MEDS: LISINOPRIL 2.5 MG TAB PO SCH (09:49)
--- NOTE | 2018-09-06 10:01 | PDMN ---
Medical Necessity Medical necessity: MCG M190 Heart Failure, A-2 days: 68 yo presents w/ SOB, eval reveals elevated troponin, afib w/ RVR, new CHF w/ EF 15-20%, pt taken emergently to laborer salvage, IABP placement for hemodynamic instability, admit to ICU IP status.
[2018-09-06] MEDS ORDERED: MIDAZOLAM 2 MG/2 ML VIAL ONE (10:36)
[2018-09-06] MEDS: ALBUTEROL 60 PUFFS/8 GM MDI IH PRN (10:45)
[2018-09-06] MEDS: MIDAZOLAM 2 MG/2 ML VIAL IVP PRN ×2 (10:47→21:40)
[2018-09-06] MEDS: BUDESONIDE/FORMOTEROL 160/4.5 60 PUFFS/MDI IH SCH ×3 (11:02→19:29)
--- NOTE | 2018-09-06 11:36 | GCON ---
[f rep st] CONSULTATION PROJECT PORTFOLIO ANALYST CONSULTATION REASON FOR ADMISSION TO INTENSIVE CARE UNIT: Cardiomyopathy. HISTORY OF PRESENT ILLNESS: The patient is a 68-year-old white male with a past medical history, inc luding asthma. He was brought to the emergency room with complaints of breathlessness. This apparen tly worsened over severity over the last several hours. He had developed an upper respiratory tract infection in early July. He was seen in the emergency room in [place], was felt to be in acute as thma attack and he started on multiple nebulized treatments, and he was subsequently discharged home. He flew back to [place], had difficulty walking in the airport and subsequently was driven to the emergency room. He was found to be in atrial fibrillation. He went to the cardiac catheterization l and an echocardiogram was also performed, which revealed an ejection fraction of 15% to 20%. Card iac catheterization showed [id number] coronary artery disease, but no acute stenosis. Currentl y, he is in the intensive care unit on supplemental oxygen. He has an intra-aortic balloon pump [facility]. PAST MEDICAL HISTORY: Significant for asthma. ALLERGIES: No known to medications. HOME MEDICATIONS: Include Percocet, budesonide/formoterol, and albuterol. PAST SURGERIES: Hernia repair. FAMILY HISTORY: Noncontributory. SOCIAL HISTORY: Former smoker, none for many years. He drinks excessive alcohol. He is , nava s children, has excellent family support. REVIEW OF SYSTEMS: Ten-point review of systems is performed and negative, except for what is listed in HPI. PHYSICAL EXAM: VITAL SIGNS: Blood pressure is 98/61, pulse 86, respirations 21, temperature, he is afebrile, oxygen saturation 92% on 4 L. GENERAL: He is a mildly overweight, but very pleasant 68-ye ar-old white male who is resting comfortably in no acute distress. HEENT: Eyes: VOLODYMYR, EOMI. Throa t shows no erythema temperature. NECK: Supple. There is no cervical adenopathy. HEART: Regular r ate and rhythm. Intra-aortic balloon pump sounds are appreciated. LUNGS: Diminished breath sounds, a few bibasilar crackles, but no wheeze. ABDOMEN: Soft, nontender. Bowel sounds are present in al l 4 quadrants. EXTREMITIES: No clubbing, cyanosis, or edema. LABORATORY/IMAGING: White count is 12.6, hemoglobin 14, hematocrit 44, platelet count is 164. Sodiu m 136, potassium 4.7, chloride 110, CO2 17, BUN is 39, creatinine 1.3, glucose is 146. BNP is 4850. Chest x-ray reviewed by myself shows cardiomegaly, otherwise clear. IMPRESSION: 1. Nonischemic cardiomyopathy, the etiology of which is unclear. Query whether this is a viral etio logy versus alcohol use. 2. Aortic stenosis. 3. Intra-aortic balloon pump. 4. Asthma. RECOMMENDATIONS: 1. Patient to lay flat. 2. Likely removal of the intra-aortic balloon pump tomorrow. 3. Cardiology following closely. 4. Continue afterload reduction with LENA inhibitor. 5. Gentle diuresis. 6. Continue his home asthma medications. 7. Discuss lifestyle changes. 8. VTE prophylaxis. 9. Stress ulcer prophylaxis. 10. Adequate nutrition. /[id number]/MODL
--- NOTE | 2018-09-06 11:45 | HOSPPROG ---
Hospitalist Progress Note Assessment/Plan: 68-year-old with a past medical history significant only for asthma is admitted with increasing shortness of breath. He was initially seen at an outside facility in July and diagnosed with asthma exacerbation this improved with some albuterol and he was discharged. However after returning to [place] he developed increasing breathlessness and came into the emergency department here where he was diagnosed with a cardiomyopathy which is new. # nonischemic cardiomyopathy of unclear etiology. Echocardiogram showing EF of 15-20% * Status post left heart catheterization showing no obstructing disease * Currently on medical management per Cardiology * Moderate aortic stenosis * AFib * Balloon pump placed to assist patient post angiogram. # atrial fibrillation, on anticoagulation per Cardiology and rate control # moderate aortic stenosis # reactive airways disease, some shortness of breath this morning that improved with albuterol. # VTE prophylaxis currently on Lovenox Subjective: Patient new to ne chart reviewed, discussed the multi despite very rounds. Overall no specific complaints of chest pain although he does have ongoing shortness of breath Objective: Vital Signs Temp Pulse Resp BP Pulse Ox 36.6 C 86 21 H 98/64 L 92 09/06/18 08:00 09/06/18 11:03 09/06/18 11:03 09/06/18 11:00 09/06/18 11:03 Laboratory Results 09/06/18 04:15 09/06/18 04:15 09/05/18 09/06/18 09/07/18 05:59 05:59 05:59 Intake Total 1445 Output Total 210 Balance 1235 PT 14.1 SEC (12.0-15.0) 09/05/18 19:00 INR 1.07 (0.83-1.16) 09/05/18 19:00 - Physical Exam Constitutional: no apparent distress, not in pain Eyes: PERRL Ears, Nose, Mouth, Throat: moist mucous membranes Cardiovascular: regular rate and rhythym Respiratory: no respiratory distress, reduced air movement, inspiratory crackles (Scattered), No expiratory wheeze Gastrointestinal: normoactive bowel sounds, soft, non-tender abdomen Genitourinary: no bladder fullness, travis in urethra Skin: warm Neurologic: AAOx3 Psychiatric: interacting appropriately, not anxious ICD10 Worksheet Patient Problems: Problems Problem Status Onset Left-sided epistaxis Acute Atrial fibrillation with RVR Acute
--- NOTE | 2018-09-06 12:03 | ASMTCMCOM ---
CM Note CM Note Notes: 09/06/2018 Case Management Note Discussed pt during rounds. Pt treated for nonischemic cardiomyopathy [facility] uclear etiology, afib, moderate aortic stenosis, and reactive airway disease. Cardiac Rehab eval and transitional care eval pending. There are no therapy evals pending at this time. Discharge needs are unclear at this time. Case Management d/c poc: to be determined. Case Management to follow. Date Signed: 09/06/2018 12:02 PM Electronically Signed By:Tiffany Mejia RN
[2018-09-06] MEDS ORDERED: PROTOCOL POTASSIUM 1 DOSE MISC PRN ×2 (19:59)
[2018-09-06] MEDS ORDERED: PROTOCOL MAGNESIUM 1 DOSE IV PRN (19:59)
[2018-09-06] MEDS ORDERED: MAGNESIUM SULF 1 GM/DEXTROSE 100 ML IV ONE (20:58)
[2018-09-06] MEDS ORDERED: POTASSIUM CL 10 MEQ TAB PO ONE (20:58)
[2018-09-06] MEDS ORDERED: BUDESONIDE/FORMOTEROL 160/4.5 60 PUFFS/MDI IH SCH (21:00)
[2018-09-07] MEDS: ALBUTEROL 60 PUFFS/8 GM MDI IH PRN ×3 (05:46→20:06)
[2018-09-07] MEDS ORDERED: POTASSIUM CL 10 MEQ TAB PO ONE ×2 (06:19→20:06)
[2018-09-07] MEDS: MIDAZOLAM 2 MG/2 ML VIAL IVP PRN ×2 (07:55→23:57)
--- NOTE | 2018-09-07 09:03 | CPEKG ---
Test Reason : OPEN Blood Pressure : / mmHG Vent. Rate : 081 BPM Atrial Rate : 081 BPM P-R Int : 176 ms QRS Dur : 154 ms QT Int : 424 ms P-R-T Axes : 063 -02 172 degrees QTc Int : 493 ms Sinus rhythm Probable left atrial enlargement Left ventricular hypertrophy Nonspecific intraventricular conduction delay Confirmed by Doyle De La Rosa ([id number]) on 09/07/2018 9:02:49 AM Referred By: Mike Elliott Confirmed By:Doyle De La Rosa
--- NOTE | 2018-09-07 09:05 | PDCARPN ---
Cardiology Progress Note Chief Complaint: SOB Assessment/Plan: Assessment: NICM ? severe AF Plan: 09/07/18 09:02 d/c IABP now three hours bedrest etiology of HF still unclear AF, now NSR start low dose beta-austin (probably toprol xl instead of coreg given lung issues) continue PO AC tx given AF and elevated CHADS-Vasc score Subjective: anxious Reviewed/Discussed With: multidisciplinary team Time Spent with Patient: greater than 25 minutes Time Spent with Patient: Greater than 25 minutes spent on this patients care, greater than 50% of time spent counseling, educating, and coordinating care regarding the above mentioned plan. Objective: Vital Signs (8 Hrs) Temp Pulse Resp Pulse Ox 09/07/18 06:00 95 14 94 09/07/18 05:00 94 15 93 09/07/18 04:00 37.3 C 91 14 95 09/07/18 03:00 93 12 93 09/07/18 02:00 90 12 95 Intake/Output (24 Hrs) 09/06/18 09/07/18 09/08/18 05:59 05:59 05:59 Intake Total 1445 2273 Output Total 210 3480 Balance 1235 -1207 Intake: Oral (ml) 500 1620 IV Intake (ml) 500 225 IV Infused (ml) 445 428 Amiodarone HCl 540 mg In 360 54 D5w 300 ml @ 16.667 mls/ hr IV ONCE PRN Rx#: [id number] Ns 1,000 ml @ 50 mls/hr 85 374 IV CONT SMITA Rx#: [id number] Output: Urine (ml) 210 3480 Urinal 210 3480 Other: Weight 81.647 kg Number of Voids Urinal 1 Number of Stools Urinal 0 Result Diagrams: 09/07/18 05:10 09/07/18 05:10 Cardiac Labs: Cardiac Lab Results (72 Hrs) 09/07/18 09/06/18 09/06/18 05:10 12:00 08:10 Troponin I 0.284 H 0.314 H 0.329 H 09/06/18 04:15 Troponin I 0.328 H - Physical Exam Constitutional: no apparent distress Eyes: PERRL Ears, Nose, Mouth, Throat: moist mucous membranes Cardiovascular: other (tachycardic) Peripheral Pulses: 1+: femoral (R), femoral (L) Respiratory: no crackles Gastrointestinal: normoactive bowel sounds Genitourinary: no suprapubic tenderness Skin: no rashes Musculoskeletal: no muscular tenderness Neurologic: AAOx3 Psychiatric: cooperative ICD10 Worksheet Patient Problems: Problems Problem Status Onset Atrial fibrillation with RVR Acute Left-sided epistaxis Acute
[2018-09-07] MEDS: BUDESONIDE/FORMOTEROL 160/4.5 60 PUFFS/MDI IH SCH ×2 (09:15→20:05)
[2018-09-07] MEDS: LISINOPRIL 2.5 MG TAB PO SCH (09:24)
[2018-09-07] MEDS: ATORVASTATIN CALCIUM 40 MG TAB PO SCH (09:25)
[2018-09-07] MEDS: FUROSEMIDE 40 MG TAB PO SCH ×2 (09:25→14:28)
[2018-09-07] MEDS: HYDROCODONE/APAP 5/325 TAB PO PRN (09:27)
--- NOTE | 2018-09-07 11:40 | HOSPPROG ---
Hospitalist Progress Note Assessment/Plan: 68-year-old with a past medical history significant only for asthma is admitted with increasing shortness of breath. He was initially seen at an outside facility in July and diagnosed with asthma exacerbation this improved with some albuterol and he was discharged. However after returning to [place] he developed increasing breathlessness and came into the emergency department here where he was diagnosed with a cardiomyopathy which is new. # nonischemic cardiomyopathy of unclear etiology. Echocardiogram showing EF of 15-20% * Status post left heart catheterization showing no obstructing disease * Currently on medical management per Cardiology * Moderate to severe aortic stenosis, currently evaluated by Dr. Ibanez * Medical management with lisinopril and lasix, * Balloon pump discontinued today. # Mod/?severe . Pt to have dobutamine Echo tomorrow to assess Aortic Valve re: cause of his CHF * Hold Beta austin until proceedure done * Further recommendations about depending on test results. # atrial fibrillation, on anticoagulation with eliquis, currently in SR # Anxiety: significant anxiety re: SOB and medical issues. Has been as issue prior to hospitalization (per his ) however the patient does not feel he needs treatment for this and starting an SSRI will likely not be recommended since I don't think he will be compliant and probably best discussed with his PCP after he is over this acute issue, in the mean time will treat as needed with lorazepam and consider minimizing albuterol. Should he become more receptive, we can address again. # reactive airways disease, some shortness of breath this morning that improved with albuterol. Defer to pulm re ongoing treatment. # VTE prophylaxis currently on eliquis. Subjective: Discussed in multidisciplinary rounds. Very anxious, especially when he gets shortness of breath this escalate. Unclear if the albuterol might be exacerbating the issue he feels like it helps. He denies any problems with anxiety in the past and attributes all to his shortness of breath at this time. Objective: Vital Signs Temp Pulse Resp BP Pulse Ox 37.3 C 96 17 81/63 L 95 09/07/18 04:00 09/07/18 11:00 09/07/18 11:00 09/07/18 11:00 09/07/18 11:00 Laboratory Results 09/07/18 05:10 09/07/18 05:10 09/06/18 09/07/18 09/08/18 05:59 05:59 05:59 Intake Total 1445 2273 Output Total 210 3480 Balance 1235 -1207 PT 14.1 SEC (12.0-15.0) 09/05/18 19:00 INR 1.07 (0.83-1.16) 09/05/18 19:00 - Physical Exam Constitutional: obese Eyes: PERRL Ears, Nose, Mouth, Throat: moist mucous membranes Cardiovascular: regular rate and rhythym Respiratory: no respiratory distress, clear to auscultation, reduced air movement (Bases) Gastrointestinal: soft, non-tender abdomen Genitourinary: no bladder fullness Skin: warm Neurologic: AAOx3 Psychiatric: interacting appropriately, not anxious ICD10 Worksheet Patient Problems: Problems Problem Status Onset Left-sided epistaxis Acute Atrial fibrillation with RVR Acute
--- NOTE | 2018-09-07 15:47 | ASMTCMCOM ---
CM Note CM Note Notes: Family meeting was held today with Spiritual Care, LEROY, pt's Karime and dtr Peggy. Family is concerned about pt's anxiety and would like to encourage him to continue on anti-anxiety medications. Pt may also benefit from follow-up information on ongoing outpatient psychiatric follow-up. See spiritual care note in notes section for more information on meeting. Pt's family requested to speak with , notified. CM provided education and support. Discharge Plan: TBD Date Signed: 09/07/2018 03:46 PM Electronically Signed By:ROSALINDA Dexter
--- NOTE | 2018-09-07 17:22 | PDINTPN ---
Forming Machine Tender Progress Note Assessment/Plan: ASSESSMENT 68-year-old male with asthma admitted with new onset nonischemic cardiomyopathy requiring intra-aortic balloon pump # nonischemic cardiomyopathy. EF 15-20%, coronary angiogram without CAD. Intra -aortic balloon pump removed 09/07/2017 # moderate to severe aortic stenosis # pulmonary edema # dyspnea # asthma. Suspect recent presentation for asthma to outside hospital may have been initial presentation of cardiomyopathy # atrial fibrillation # anxiety. History of anxiety as outpatient. Not on medications PLAN # untreated balloon pump removed today by Dr. Ibanez. Monitor right groin for signs and symptoms of bleeding # continue afterload reduction # systemic anticoagulation with Eliquis for atrial fibrillation # maintain even to net negative fluid balance # minimize albuterol treatments for shortness of breath and was wheezing as this will worsen anxiety # low-dose Ativan as needed # will likely need long-term SSRI and or counseling for anxiety # aortic stenosis management per Dr. Ibanez # Feeding - cardiac diet # Analgesia none # Sedation Ativan as needed # Thromboprophylaxis - Eliquis # Head of bed elevated # Ulcer prophylaxis - H2 austin # Glucose SSI # Skin no skin breakdown # Delirium - delirium precautions ABX None IMAGING Reviewed. Chest x-ray 09/07/2018 with interstitial edema Subjective: Patient intermittently complain of shortness of Breath anxiety. Denies fevers chills nausea vomiting chest pain. No worsening leg swelling. Reports he slept okay overnight Objective: Vital Signs Temp Pulse Resp BP Pulse Ox 37.3 C 103 H 22 H 88/62 L 95 09/07/18 04:00 09/07/18 16:00 09/07/18 16:00 09/07/18 16:00 09/07/18 16:00 Laboratory Results 09/07/18 05:10 09/07/18 12:20 09/06/18 09/07/18 09/08/18 05:59 05:59 05:59 Intake Total 1445 2273 Output Total 210 3480 675 Balance 1235 -1207 -675 PT 14.1 SEC (12.0-15.0) 09/05/18 19:00 INR 1.07 (0.83-1.16) 09/05/18 19:00 Physical Exam - Physical Exam General Appearance: WD/WN, alert, anxiety EENT: PERRL/EOMI, normal ENT inspection Neck: non-tender, full range of motion Respiratory: chest non-tender, lungs clear, normal breath sounds Cardiac/Chest: normal peripheral pulses, other (r) Abdomen: normal bowel sounds, non-tender Back: Normal inspection Skin: normal color, warm/dry, No cyanosis Extremities: normal capillary refill, other (Right groin bandage clean dry and intact. No significant ecchymoses.) Neuro/Psych: no motor/sensory deficits, alert, normal mood/affect, oriented x 3 ICD10 Worksheet Patient Problems: Problems Problem Status Onset Atrial fibrillation with RVR Acute Cardiomyopathy Acute Left-sided epistaxis Acute
[2018-09-07] MEDS: APIXABAN 5 MG TAB PO SCH (20:10)
[2018-09-07] MEDS: LORazepam 1 MG TAB PO PRN (20:10)
[2018-09-08] MEDS: ALBUTEROL 60 PUFFS/8 GM MDI IH PRN ×3 (05:45→20:15)
[2018-09-08] MEDS ORDERED: POTASSIUM CL 10 MEQ TAB PO ONE (06:33)
--- NOTE | 2018-09-08 06:54 | PDCARPN ---
Cardiology Progress Note Chief Complaint: SOB Assessment/Plan: Assessment: NICM ? severe AF Plan: 09/07/18 09:02 d/c IABP now three hours bedrest etiology of HF still unclear AF, now NSR start low dose beta-austin (probably toprol xl instead of coreg given lung issues) continue PO AC tx given AF and elevated CHADS-Vasc score 09/08/18 06:52 Still has anxiety/SOB lasix IV now check CXR plan for dobutamine stress echo later this AM hold beta-austin until resp status stabilizes NSR Subjective: c/o anxiety Reviewed/Discussed With: multidisciplinary team Time Spent with Patient: greater than 25 minutes Time Spent with Patient: Greater than 25 minutes spent on this patients care, greater than 50% of time spent counseling, educating, and coordinating care regarding the above mentioned plan. Objective: Vital Signs (8 Hrs) Pulse Resp BP Pulse Ox 09/08/18 06:31 94 19 90/62 L 97 09/08/18 06:19 104 H 26 H 09/08/18 04:00 105 H 23 H 96/63 L 97 09/08/18 02:00 98 18 90/63 L 96 09/08/18 00:00 102 H 22 H 101/69 95 Intake/Output (24 Hrs) 09/07/18 09/08/18 09/09/18 05:59 05:59 05:59 Intake Total 2273 2363 Output Total 3480 1375 Balance -1207 988 Intake: Oral (ml) 1620 2200 IV Intake (ml) 225 163 IV Infused (ml) 428 Amiodarone HCl 540 mg In 54 D5w 300 ml @ 16.667 mls/ hr IV ONCE PRN Rx#: [id number] Ns 1,000 ml @ 50 mls/hr 374 IV CONT SMITA Rx#: [id number] Output: Urine (ml) 3480 1375 Urinal 3480 1375 Other: Number of Voids Urinal 1 2 Bladder Scan Volume (ml) Urinal 316 Result Diagrams: 09/07/18 05:10 09/08/18 04:55 Cardiac Labs: Cardiac Lab Results (72 Hrs) 09/07/18 09/06/18 09/06/18 05:10 12:00 08:10 Troponin I 0.284 H 0.314 H 0.329 H 09/06/18 04:15 Troponin I 0.328 H - Physical Exam Constitutional: other (anxious) Eyes: PERRL Ears, Nose, Mouth, Throat: dry mucous membranes Cardiovascular: regular rate and rhythm, systolic murmur Peripheral Pulses: 1+: femoral (R), femoral (L) Respiratory: reduced air movement Gastrointestinal: normoactive bowel sounds Genitourinary: no suprapubic tenderness Skin: no rashes Musculoskeletal: no muscular tenderness Neurologic: AAOx3 Psychiatric: cooperative ICD10 Worksheet Patient Problems: Problems Problem Status Onset Atrial fibrillation with RVR Acute Cardiomyopathy Acute Left-sided epistaxis Acute
[2018-09-08] MEDS ORDERED: FUROSEMIDE 40 MG/4 ML VIAL IVP ONE (07:00)
[2018-09-08] MEDS: BUDESONIDE/FORMOTEROL 160/4.5 60 PUFFS/MDI IH SCH ×2 (08:56→20:14)
[2018-09-08] MEDS ORDERED: METOPROLOL SUCCINATE XR 25 MG TAB PO SCH (09:00)
[2018-09-08] MEDS: LISINOPRIL 2.5 MG TAB PO SCH (10:07)
[2018-09-08] MEDS: APIXABAN 5 MG TAB PO SCH (10:07)
[2018-09-08] MEDS: ATORVASTATIN CALCIUM 40 MG TAB PO SCH (10:07)
[2018-09-08] MEDS: FUROSEMIDE 40 MG TAB PO SCH ×2 (10:07→14:07)
[2018-09-08] MEDS: SPIRONOLACTONE 25 MG TAB PO SCH (10:43)
[2018-09-08] MEDS: predniSONE 20 MG TAB PO SCH (10:43)
--- NOTE | 2018-09-08 11:20 | CPR ---
[f rep st] NONINVASIVE CARDIAC PROCEDURE REPORT DATE OF PROCEDURE: 09/08/2018 PROCEDURE: Dobutamine stress echo. INDICATION FOR PROCEDURE: Question low gradient, severe versus Pseudostenosis. DESCRIPTION OF PROCEDURE: Per [facility] protocol, patient had baseline surface echocardiographic images pe rformed. Baseline heart rate was sinus at 90 with a blood pressure of 118/70. Baseline images showe d EF of 10% with severely calcified aortic valve. The gradient across the valve was maximum 3.2. Do butamine infusion was started at 10 mcg/kg per minute and increased by 10 every 3 minutes. At the 30 mcg/kg point, the patient had an increase in EF from 10% to approximately 20%. Notable that the pat ient had significant increase across the valve from 3.2 to 4.2, which was consistent and not related to PVCs. The patient's heart rate had increased from 90 to 120 with a blood pressure increase to 124 /80. The patient did not have any major symptoms during the test. At this time of the test, the utamine infusion was shut off and echocardiogram images were recorded. IMPRESSION: Dobutamine infusion revealing true severe aortic stenosis with a gradient increased from 3.2 to 4.2 at a rate of 30 mcg/kg per minute. PLAN: The patient will have a consult from CT surgery as his myopathy is most likely due to his unde rlying valvular disorder. /[id number]/MODL
[2018-09-08] MEDS ORDERED: MUPIROCIN 2% 22 GM OINT NS ONE (12:21)
[2018-09-08] MEDS: DOBUTamine/DEXTROSE 250 ML IV SCH (12:27)
--- NOTE | 2018-09-08 13:37 | PDINTPN ---
Acute Care Nursing Assistant Progress Note Assessment/Plan: ASSESSMENT 68-year-old male with asthma admitted with new onset nonischemic cardiomyopathy requiring intra-aortic balloon pump # severe aortic stenosis nonischemic cardiomyopathy. EF 15-20%, coronary angiogram without CAD. Intra- aortic balloon pump removed 09/07/2017 # pulmonary edema # dyspnea # asthma, mild exacerbation. Wheezing on exam seems more asthma than cardiac mediated. More anxious with albuterol. # atrial fibrillation # anxiety. History of anxiety as outpatient. Not on medications PLAN # OR timing for aortic valve repair per Dr. Eubanks # at spironolactone for K sparing effect in the setting of diuresis # continue diuresis # stop Eliquis (last dose 09/08/18 at 0800) # continue rate control for afib # Pred 20 started 09/08/2018 for mild asthma exacerbation # minimize albuterol treatments for shortness of breath and was wheezing as this will worsen anxiety # low-dose Ativan as needed # Feeding - cardiac diet, NPO after midnight # Analgesia none # Sedation Ativan as needed # Thromboprophylaxis - Eliquis, holding # Head of bed elevated # Ulcer prophylaxis - H2 austin # Glucose SSI # Skin no skin breakdown # Delirium - delirium precautions ABX None IMAGING I personally reviewed interpreted radiographic images well as formal radiology reads Chest x-ray 09/08/2018 with interstitial edema 09/08/2018 dobutamine stress echo-severe aortic stenosis with increasing valvular gradient with dobutamine. EF approximately 10%. No focal wall motion abnormalities or inducible ischemia 09/08/18 14:01 09/08/18 14:03 Subjective: Anxiety partially relieved with Ativan nurse today. Still complaining shortness of breath, dobutamine stress echo today. Objective: Vital Signs Temp Pulse Resp BP Pulse Ox 37.4 C 97 19 113/72 98 09/07/18 20:00 09/08/18 10:00 09/08/18 10:00 09/08/18 10:07 09/08/18 10:00 Laboratory Results 09/07/18 05:10 09/08/18 12:15 09/07/18 09/08/18 09/09/18 05:59 05:59 05:59 Intake Total 2273 2363 Output Total 3480 1375 225 Balance -1207 988 -225 PT 14.1 SEC (12.0-15.0) 09/05/18 19:00 INR 1.07 (0.83-1.16) 09/05/18 19:00 Physical Exam - Physical Exam General Appearance: alert, mild distress EENT: PERRL/EOMI, normal ENT inspection Neck: non-tender, full range of motion Respiratory: chest non-tender, accessory muscle use, wheezing, No crackles, No rales Skin: normal color, warm/dry Neuro/Psych: no motor/sensory deficits, alert, normal mood/affect, oriented x 3 ICD10 Worksheet Patient Problems: Problems Problem Status Onset Left-sided epistaxis Acute Atrial fibrillation with RVR Acute Cardiomyopathy Acute
[2018-09-08] MEDS ORDERED: POTASSIUM CL 20 MEQ TAB PO ONE (14:00)
[2018-09-08] MEDS ORDERED: POLYETHYLENE GLYCOL 3350 17 GM PKT PO ONE (14:16)
--- NOTE | 2018-09-08 14:21 | HOSPPROG ---
Hospitalist Progress Note Assessment/Plan: 68-year-old with a past medical history significant only for asthma is admitted with increasing shortness of breath. He was initially seen at an outside facility in July and diagnosed with asthma exacerbation this improved with some albuterol and he was discharged. However after returning to [place] he developed increasing breathlessness and came into the emergency department here where he was diagnosed with a cardiomyopathy which is new. nonischemic cardiomyopathy of unclear etiology. Echocardiogram showing EF of 15 -20% * s/p IABP surgical AVR in AM Mod/?severe . dobutamine Echo demonstrates severe * as above constipation: miralax X 1 rec aggressive postop bowel regimen atrial fibrillation, on anticoagulation with eliquis, currently in SR Anxiety: significant anxiety re: SOB and medical issues. Has been as issue prior to hospitalization (per his ) however the patient does not feel he needs treatment for this and starting an SSRI will likely not be recommended since I don't think he will be compliant and probably best discussed with his PCP after he is over this acute issue, in the mean time will treat as needed with lorazepam and consider minimizing albuterol. Should he become more receptive, we can address again. reactive airways disease, some shortness of breath this morning that improved with albuterol. Defer to pulm re ongoing treatment. VTE prophylaxis scd Subjective: plan is for AVR, MV repair in AM. case d/w dr [place] Objective: Vital Signs Temp Pulse Resp BP Pulse Ox 37.4 C 97 19 113/72 98 09/07/18 20:00 09/08/18 10:00 09/08/18 10:00 09/08/18 10:07 09/08/18 10:00 Laboratory Results 09/07/18 05:10 09/08/18 12:15 09/07/18 09/08/18 09/09/18 05:59 05:59 05:59 Intake Total 2273 2363 Output Total 3480 1375 225 Balance -1207 988 -225 PT 14.1 SEC (12.0-15.0) 09/05/18 19:00 INR 1.07 (0.83-1.16) 09/05/18 19:00 - Physical Exam Constitutional: no apparent distress, appears nourished Eyes: PERRL, anicteric sclera Ears, Nose, Mouth, Throat: moist mucous membranes, hearing normal Cardiovascular: regular rate and rhythym, systolic murmur Respiratory: no respiratory distress, inspiratory crackles Gastrointestinal: normoactive bowel sounds, soft, non-tender abdomen Genitourinary: No travis in urethra Skin: warm, normal color Musculoskeletal: full muscle strength Neurologic: AAOx3 ICD10 Worksheet Patient Problems: Problems Problem Status Onset Atrial fibrillation with RVR Acute Cardiomyopathy Acute Left-sided epistaxis Acute
--- NOTE | 2018-09-08 16:45 | SOAPPROG ---
[facility] Progress Note Assessment/Plan: Assessment: 68 year old with severe aortic stenosis, LV dysfunction and CHF. Will need AVR nayla. In addition we plan mitral repair, ILEANA ligation, PV isolation, placement of LV leads (for later bi V pacing). IABP will likely be needed post op. Discussed at length with patient and his /daughter. All questions answered. Consent obtained from patient. Plan: 09/08/18 16:42 Objective: Vital Signs Temp Pulse Resp BP Pulse Ox 37.4 C 96 22 H 101/72 96 09/07/18 20:00 09/08/18 16:00 09/08/18 16:00 09/08/18 16:00 09/08/18 16:00 Laboratory Results 09/07/18 05:10 09/08/18 12:15 09/07/18 09/08/18 09/09/18 05:59 05:59 05:59 Intake Total 2273 2363 Output Total 3480 1375 225 Balance -1207 988 -225 PT 14.1 SEC (12.0-15.0) 09/05/18 19:00 INR 1.07 (0.83-1.16) 09/05/18 19:00 ICD10 Worksheet Patient Problems: Problems Problem Status Onset Atrial fibrillation with RVR Acute Cardiomyopathy Acute Left-sided epistaxis Acute
--- NOTE | 2018-09-08 17:25 | ECHO ---
[email or web address] [place] [phone] Main: [phone] Fax: Transthoracic Echocardiogram Name: JONY LEDESMA MR#: [id number] Study Date: 09/08/2018 Study Time: 09:10 AM Date of : 1950 Age: 68 year(s) Height: ( ) Weight: ( ) BSA: Gender: Male Examination: Stress Echo Indication: Eval aortic valve Image Quality: Adequate Contrast: Requested by: Mike Lee BP: 97 mmHg/72 mmHg Heart Rate: Rhythm: Indication: Eval aortic valve Procedure Staff [employer] Operator: Marley Willson RDCS Reading Physician: Luis Felipe Ibanez MD Requesting Provider: Measurements: Chambers Valvular Assessment AV/MV Valvular Assessment TV/PV Normal Normal Normal Name Value Range Name Value Range Name Value Range LVOTd 2.1 cm 2.1 cm mm AV meanP mmHg ( - ) NATALIA (VTI): 0.9 cm ( - ) Continued Measurements: (No Signature Object) Patient: JONY LEDESMA Study Date: 09/08/2018 Page 1 of 1 09:10 AM [id number]
[2018-09-08] MEDS ORDERED: CHLORHEXIDINE GLUC HIBICLENS 118 ML BTL TP SCH (21:00)
[2018-09-08] MEDS: LORazepam 1 MG TAB PO PRN (21:05)
[2018-09-08] MEDS: HYDROCODONE/APAP 5/325 TAB PO PRN (21:05)
[2018-09-08] MEDS ORDERED: traZODone 50 MG TAB PO PRN (23:02)
[2018-09-08] MEDS: MUPIROCIN 2% 22 GM OINT NS SCH (23:34)
[2018-09-09] MEDS ORDERED: DOBUTamine 500 MG in D5W 250 ML IV SCH (06:00)
[2018-09-09] MEDS ORDERED: ceFAZolin 2 GM/DEXTROSE 100 ML IV ONE (06:00)
[2018-09-09] MEDS ORDERED: MUPIROCIN 2% 22 GM OINT NS ONE (06:00)
[2018-09-09] MEDS ORDERED: CARDIOPLEGIC SOLUTION 1,052.8 ML PF ONE (06:00)
[2018-09-09] MEDS ORDERED: MANNITOL 25% 12.5 GM/50 ML VIAL IVP ONE (06:00)
[2018-09-09] MEDS ORDERED: PHENYLEPHRINE HCL 50 MG in NS 250 ML IV ONE ×2 (06:00→11:15)
[2018-09-09] MEDS ORDERED: INSULIN REGULAR HUMAN 100 UNIT in NS 100 ML IV ONE (06:00)
[2018-09-09] MEDS ORDERED: EPINEPHrine 8 MG in NS 250 ML IV ONE (06:00)
[2018-09-09] MEDS ORDERED: CITRATE DEXTROSE SOLN 500 ML BAG MISC ONE ×2 (06:00)
[2018-09-09] MEDS ORDERED: AMINOCAPROIC ACID 5 GM/20 ML VIAL IV ONE ×2 (06:00)
[2018-09-09] MEDS ORDERED: NOREPINEPHRINE BITARTRATE 16 MG in NS 250 ML IV ONE (06:00)
[2018-09-09] MEDS ORDERED: NS 1,000 ML IV ONE (06:00)
[2018-09-09] MEDS ORDERED: MILRINONE/DEXTROSE/100 ML BAG IV ONE (06:16)
[2018-09-09] MEDS ORDERED: PROTAMINE SULFATE 50 MG/5 ML VIAL IVP ONE (06:16)
[2018-09-09] MEDS ORDERED: AMINOCAPROIC ACID 5 GM/20 ML VIAL ONE ×2 (06:16→06:18)
[2018-09-09] MEDS ORDERED: CALCIUM CHLORIDE 1 GM/10 ML INJ ONE ×2 (06:16→06:18)
[2018-09-09] MEDS ORDERED: AMIODARONE HCL 150 MG/3 ML VIAL ONE ×2 (06:17→06:19)
[2018-09-09] MEDS ORDERED: NA BICARBONATE 50 MEQ/50 ML VIAL ONE ×2 (06:17→17:21)
[2018-09-09] MEDS ORDERED: HEPARIN 10,000 UNIT/10 ML MDV (1,000 UNIT/ML) ONE ×2 (06:17→06:18)
[2018-09-09] MEDS ORDERED: ceFAZolin 1 GM VIAL ONE ×3 (06:17→12:45)
[2018-09-09] MEDS ORDERED: NITROGLYCERIN/D5W 50 MG/250 ML BOTTLE IV ONE (06:17)
[2018-09-09] MEDS ORDERED: niCARdipine/NACL/200 ML BAG IV ONE (06:17)
[2018-09-09] MEDS ORDERED: DOPamine/DEXTROSE 400 MG/250 ML BAG IV ONE ×2 (06:17→10:15)
[2018-09-09] MEDS ORDERED: ADENOSINE 6 MG/2 ML VIAL ONE (06:17)
[2018-09-09] MEDS ORDERED: SODIUM BICARBONATE 50 MEQ/50 ML SYR ONE (06:18)
[2018-09-09] MEDS ORDERED: LIDOCAINE 2% 100 MG/5 ML SYR ONE ×2 (06:18→07:22)
[2018-09-09] MEDS ORDERED: ALBUMIN 5% 250 ML BOTTLE IV ONE ×2 (06:18→11:25)
[2018-09-09] MEDS ORDERED: MAGNESIUM SULFATE 1 GM/2 ML VIAL ONE (06:19)
[2018-09-09] MEDS ORDERED: methylPREDNISolone SOD SUCC 1 GM/8 ML VIAL ONE (06:19)
[2018-09-09] MEDS ORDERED: CITRATE DEXTROSE SOLN 500 ML BAG ONE (06:19)
--- NOTE | 2018-09-09 06:44 | PDGENHP ---
History and Physical - Chief Complaint SOB - History of Present Illness This is pleasant 68M who presented to the ED for severe SOB for 2 days. Prior to arrival, he was evaluated in [facility] for the same complaint and was treated as an asthma exacerbation with nebulizers. He flew back to [facility] and his SOB significantly worsened. His SOB has worsened over the past 2-3 years. In the ED, his HR was in atrial fibrillation w RVR (170s-180s), new LBBB, and elevated troponins. He was treated with IV diltiazem. STAT echo demonstrates a new diagnosis of cardiomyopathy, EF 15%, severe , and moderate MR. He was taken to the chemistry laboratory technician which demonstrated 50% mid LAD lesion wo critical CAD. IABP was also placed at that time which has since then been removed. No chest surgery. +EtOH. History Information - Allergies/Home Medication List Allergies/Adverse Reactions: No Known Allergies Allergy (Verified 09/06/18 09:47) Home Medications: Albuterol [Proventil Inhaler HFA (*)] 1 - 2 puffs IH Q4H PRN 06/24/17 [Last Taken 09/05/18] Budesonide/Formoterol 160/4.5 [Symbicort 160-4.5 Mcg Inh (*)] 2 puffs IH BID [Last Taken 09/05/18] Omeprazole 20 mg PO HS 09/06/18 [Last Taken Unknown] I have personally reviewed and updated: family history, medical history, social history, surgical history - Past Medical History no pertinent PMH Additional medical history: asthma - Surgical History Reports: no pertinent surgical hx Additional surgical history: hernia, - Family History Additional family history: Denies family hx of bleeding - Social History Smoking Status: Former smoker Alcohol Use: Heavy Review of Systems Review of Systems: ROS: 2-9 pt reviewed & negative except for what was stated in HPI & below Physical Exam Physical Exam: Temp Pulse Resp BP Pulse Ox 36.6 C 72 16 108/71 98 09/08/18 22:00 09/09/18 06:00 09/09/18 06:00 09/09/18 06:00 09/09/18 06:00 O2 (L/minute) 4 Constitutional: appears nourished, not in pain Eyes: icteric sclera, pale conjunctiva Ears, Nose, Mouth, Throat: moist mucous membranes, hearing normal Cardiovascular: regular rate and rhythym, systolic murmur Respiratory: no respiratory distress, no rales or rhonchi Gastrointestinal: soft, non-tender abdomen Skin: warm, normal color Neurologic: AAOx3 Psychiatric: interacting appropriately, thought process linear Lab Data & Imaging Review 09/09/18 05:55 09/09/18 05:55 WBC 7.88 10^3/uL (3.80-9.50) 09/09/18 05:55 RBC 4.57 10^6/uL (4.40-6.38) 09/09/18 05:55 Hgb 14.8 g/dL (13.7-17.5) 09/09/18 05:55 Hct 43.3 % (40.0-51.0) 09/09/18 05:55 MCV 94.7 fL (81.5-99.8) 09/09/18 05:55 MCH 32.4 pg (27.9-34.1) 09/09/18 05:55 MCHC 34.2 g/dL (32.4-36.7) 09/09/18 05:55 RDW 12.6 % (11.5-15.2) 09/09/18 05:55 Plt Count 131 10^3/uL (150-400) L 09/09/18 05:55 MPV 10.4 fL (8.7-11.7) 09/06/18 04:15 Neut % (Auto) 71.6 % (39.3-74.2) 09/06/18 04:15 Lymph % (Auto) 17.9 % (15.0-45.0) 09/06/18 04:15 Phelps % (Auto) 9.5 % (4.5-13.0) 09/06/18 04:15 Eos % (Auto) 0.2 % (0.6-7.6) L 09/06/18 04:15 Baso % (Auto) 0.2 % (0.3-1.7) L 09/06/18 04:15 Nucleat RBC Rel Count 0.0 % (0.0-0.2) 09/06/18 04:15 Absolute Neuts (auto) 9.01 10^3/uL (1.70-6.50) H 09/06/18 04:15 Absolute Lymphs (auto) 2.26 10^3/uL (1.00-3.00) 09/06/18 04:15 Absolute Monos (auto) 1.20 10^3/uL (0.30-0.80) H 09/06/18 04:15 Absolute Eos (auto) 0.03 10^3/uL (0.03-0.40) 09/06/18 04:15 Absolute Basos (auto) 0.03 10^3/uL (0.02-0.10) 09/06/18 04:15 Absolute Nucleated RBC 0.00 10^3/uL (0-0.01) 09/06/18 04:15 Immature Gran % 0.6 % (0.0-1.1) 09/06/18 04:15 Immature Gran # 0.08 10^3/uL (0.00-0.10) 09/06/18 04:15 PT 14.1 SEC (12.0-15.0) 09/05/18 19:00 INR 1.07 (0.83-1.16) 09/05/18 19:00 APTT 24.9 SEC (23.0-38.0) 09/05/18 19:00 D-Dimer 0.52 ug/mLFEU (0.00-0.50) H 09/05/18 19:00 Sodium 137 mEq/L (135-145) 09/09/18 05:55 Potassium 4.1 mEq/L (3.5-5.2) 09/09/18 05:55 Chloride 104 mEq/L (97-110) 09/09/18 05:55 Carbon Dioxide 29 mEq/l (22-31) 09/09/18 05:55 Anion Gap 4 mEq/L (6-14) L 09/09/18 05:55 BUN 24 mg/dL (7-23) H 09/09/18 05:55 Creatinine 0.9 mg/dL (0.7-1.3) 09/09/18 05:55 Estimated GFR > 60 09/09/18 05:55 Glucose 108 mg/dL (70-100) H 09/09/18 05:55 Hemoglobin A1c 5.0 % (4.0-6.0) 09/08/18 13:46 Estim Average Glucose 97 mg/dL (68-126) 09/08/18 13:46 Calcium 8.2 mg/dL (8.5-10.4) L 09/09/18 05:55 Phosphorus 6.8 mg/dL (2.5-4.5) H 09/06/18 04:15 Magnesium 2.2 mg/dL (1.6-2.3) 09/09/18 05:55 Total Bilirubin 2.0 mg/dL (0.1-1.4) H 09/06/18 04:15 AST 47 IU/L (17-59) 09/06/18 04:15 ALT 69 IU/L (21-72) 09/06/18 04:15 Alkaline Phosphatase 41 IU/L (38-126) 09/06/18 04:15 POC Troponin I 0.22 ng/mL (0.00-0.08) H 09/05/18 19:05 Troponin I 0.284 ng/mL (0.000-0.034) H 09/07/18 05:10 NT-Pro-B Natriuret Pep 3330 pg/mL (0-125) H 09/08/18 04:55 Total Protein 6.1 g/dL (6.3-8.2) L 09/06/18 04:15 Albumin 3.6 g/dL (3.5-5.0) 09/06/18 04:15 Triglycerides 298 mg/dL (40-150) H 09/06/18 04:15 Cholesterol 130 mg/dL (140-220) L 09/06/18 04:15 Cholesterol Risk Factr 0.8 (0.2-1.0) 09/06/18 04:15 LDL Cholesterol, Calc 37 mg/dL (80-100) L 09/06/18 04:15 LDL Risk Factor 0.6 (0.2-1.0) 09/06/18 04:15 VLDL Cholesterol 60 mg/dL (8-25) H 09/06/18 04:15 Non-HDL Cholesterol 97 mg/dL (90-129) 09/06/18 04:15 HDL Cholesterol 33 mg/dL (40-65) L 09/06/18 04:15 LDL/HDL Ratio 1.13 RATIO (1.00-3.64) 09/06/18 04:15 Cholesterol/HDL Ratio 3.94 RATIO (1.00-4.97) 09/06/18 04:15 Patient ABO/Rh A POSITIVE 09/08/18 13:46 Antibody Screen NEGATIVE 09/08/18 13:46 Crossmatch IS Only See Detail 09/08/18 13:46 Imaging Review: CUS 09/08/18 - no carotid disease. LHC: 09/05/18 - mLAD 50%, noncritical disease, IABP ECHO: 09/05/18 - EF 15-20%, moderate MR, moderate , mild TR, TAA 4.5 cm CXR: 09/05/18 - cardiomegaly BINU: 09/08/18 - severe BNP 3330 Assessment & Plan Assessment: Moderate-Severe Aortic Stenosis Moderate Mitral Regurgitation Dilated ascending aorta @ 4.5 cm Afib w RVR New LBBB NICM (LVEF 15%) Asthma Plan: Aortic Valve Replacement (t), Mitral Valve Repair/Replace (t), Pulmonary Valve Isolation, Left Atrial Appendage Exclusion, Resection and Grafting of Ascending Aorta, Placement of LV Leads, Placement of IABP with Dr. Ramos.
[2018-09-09] MEDS ORDERED: ROCURONIUM 100 MG/10 ML VIAL ONE (07:21)
[2018-09-09] MEDS ORDERED: PROPOFOL/EMULSION 500 MG/50 ML BOTTLE IV ONE (07:21)
[2018-09-09] MEDS ORDERED: REMIFENTANIL HCL 1 MG VIAL ONE (07:21)
[2018-09-09] MEDS ORDERED: MIDAZOLAM 2 MG/2 ML VIAL ONE ×2 (07:21)
[2018-09-09] MEDS ORDERED: fentaNYL 250 MCG/5 ML INJ ONE ×2 (07:21→13:22)
[2018-09-09] MEDS ORDERED: ePHEDrine SULFATE 25 MG/5 ML SYR ONE (07:22)
[2018-09-09] MEDS ORDERED: PHENYLEPHRINE HCL 100 MCG/ML SYR ONE (07:22)
--- NOTE | 2018-09-09 07:35 | PDCARPN ---
Cardiology Progress Note Chief Complaint: SOB Assessment/Plan: Assessment: NICM ? severe AF Plan: 09/07/18 09:02 d/c IABP now three hours bedrest etiology of HF still unclear AF, now NSR start low dose beta-austin (probably toprol xl instead of coreg given lung issues) continue PO AC tx given AF and elevated CHADS-Vasc score 09/08/18 06:52 Still has anxiety/SOB lasix IV now check CXR plan for dobutamine stress echo later this AM hold beta-austin until resp status stabilizes NSR 09/09/18 07:34 patient scheduled for surgery this AM NPO No new CP/SOB further recs per CTS Subjective: stable Reviewed/Discussed With: multidisciplinary team Time Spent with Patient: greater than 25 minutes Time Spent with Patient: Greater than 25 minutes spent on this patients care, greater than 50% of time spent counseling, educating, and coordinating care regarding the above mentioned plan. Objective: Vital Signs (8 Hrs) Temp Pulse Resp BP Pulse Ox 09/09/18 06:43 36.6 C 88 14 108/71 99 09/09/18 06:00 72 16 108/71 98 09/09/18 04:00 84 16 97/71 L 100 09/09/18 02:00 74 18 89/71 L 96 09/09/18 00:00 88 20 98/62 L 97 Intake/Output (24 Hrs) 09/08/18 09/09/18 09/10/18 05:59 05:59 05:59 Intake Total 2363 200 Output Total 1375 1200 Balance 988 -1000 Intake: Oral (ml) 2200 200 IV Intake (ml) 163 Output: Urine (ml) 1375 1200 Catheter 925 Urinal 1375 275 Other: Weight 89.9 kg 89.9 kg Number of Voids Urinal 2 1 Bladder Scan Volume (ml) Urinal 316 425 Post Void Residual Scan Volume (ml) Urinal 380 Result Diagrams: 09/09/18 05:55 09/09/18 05:55 Cardiac Labs: Cardiac Lab Results (72 Hrs) 09/07/18 09/06/18 09/06/18 05:10 12:00 08:10 Troponin I 0.284 H 0.314 H 0.329 H - Physical Exam Constitutional: no apparent distress Eyes: PERRL Ears, Nose, Mouth, Throat: dry mucous membranes Cardiovascular: regular rate and rhythm, systolic murmur Peripheral Pulses: 1+: femoral (R), femoral (L) Respiratory: no crackles Gastrointestinal: normoactive bowel sounds Genitourinary: no suprapubic tenderness Skin: no rashes Musculoskeletal: no muscular tenderness Neurologic: AAOx3 Psychiatric: cooperative ICD10 Worksheet Patient Problems: Problems Problem Status Onset Atrial fibrillation with RVR Acute Cardiomyopathy Acute Left-sided epistaxis Acute
[2018-09-09] MEDS: BUDESONIDE/FORMOTEROL 160/4.5 60 PUFFS/MDI IH SCH (09:04)
--- NOTE | 2018-09-09 09:08 | PDANEPAE ---
ANE History of Present Illness pt with /MR/Ao aneurism/a-fib/CHF withn EF=15% and recent IABP s/f AVR/MVR/PVI /Ao repair/ILEANA clipping ANE Past Medical History - Cardiovascular History Hx Hypertension: Yes Hx Arrhythmias: Yes Hx Chest Pain: Yes Hx Coronary Artery / Peripheral Vascular Disease: Yes Hx CHF / Valvular Disease: Yes Hx Palpitations: Yes Cardiovascular History Comment: mod CAD with 50% LAD lesion - Pulmonary History Hx Asthma/Reactive Airway Disease: Yes Hx Oxygen in Use at Home: No Hx Sleep Apnea: Yes Sleep Apnea Screening Result - Last Documented: Positive - Endocrine History Hx Diabetes: No - Chronic Pain History Chronic Pain: Yes (Knee pain/shoulder pain) ANE Review of Systems Review of Systems: - Exercise capacity METS (RN): 2 METS ANE Patient History - Allergies Allergies/Adverse Reactions: No Known Allergies Allergy (Verified 09/06/18 09:47) - Home Medications Home medications: home medication list seen and reviewed Home Medications: Albuterol [Proventil Inhaler HFA (*)] 1 - 2 puffs IH Q4H PRN 06/24/17 [Last Taken 09/05/18] Budesonide/Formoterol 160/4.5 [Symbicort 160-4.5 Mcg Inh (*)] 2 puffs IH BID [Last Taken 09/05/18] Omeprazole 20 mg PO HS 09/06/18 [Last Taken Unknown] - NPO status NPO Status: no food or drink >8 hours NPO Since - Liquids (Date): 09/08/18 NPO Since - Liquids (Time): 23:00 NPO Since - Solids (Date): 09/08/18 NPO Since - Solids (Time): 19:00 - Anes Hx Anes Hx: no prior problems - Smoking Hx Smoking Status: Former smoker - Alcohol Use Alcohol Use: None - Family Anes Hx Family Anes Hx: none ANE Labs/Vital Signs - Labs Result Diagrams: 09/09/18 05:55 09/09/18 05:55 - Vital Signs Blood Pressure: 108/71 Heart Rate: 88 Respiratory Rate: 14 O2 Sat (%): 99 Height: 167.64 cm Weight: 89.9 kg ANE Physical Exam - Airway Neck exam: FROM Mallampati Score: Class 2 Mouth exam: poor dentition - Pulmonary Pulmonary: expiratory wheeze, inspiratory crackles - Cardiovascular Cardiovascular: regular rate and rhythym - ASA Status ASA Status: IV ANE Anesthesia Plan Anesthesia Plan: general endotracheal anesthesia Lines/Monitors: arterial line, central line (PA catheter and QL CVP (double stick)), JAMIL Urgent/Emergent Case: Anes eval completed preop but documented later for safe timely pt care
[2018-09-09] MEDS ORDERED: ALBUMIN 5% 500 ML BOTTLE IV ONE ×2 (09:58→20:06)
[2018-09-09] MEDS ORDERED: DEXMEDETOMIDINE HCL 400 MCG in NS 100 ML IV SCH (10:30)
[2018-09-09] MEDS ORDERED: TALC 3 GM INTRAPLEURAL VIAL ONE (10:54)
[2018-09-09] MEDS ORDERED: ROCURONIUM 50 MG/5 ML VIAL ONE ×2 (11:30→13:00)
--- NOTE | 2018-09-09 11:49 | CPEKG ---
Test Reason : OPEN Blood Pressure : / mmHG Vent. Rate : 089 BPM Atrial Rate : 089 BPM P-R Int : 173 ms QRS Dur : 158 ms QT Int : 403 ms P-R-T Axes : 052 006 099 degrees QTc Int : 491 ms Sinus rhythm Probable left atrial enlargement IVCD, Confirmed by Doyle De La Rosa ([id number]) on 09/09/2018 11:48:39 AM Referred By: Mike Elliott Confirmed By:Doyle De La Rosa
[2018-09-09] MEDS: ATORVASTATIN CALCIUM 40 MG TAB PO SCH (11:56)
[2018-09-09] MEDS: LISINOPRIL 2.5 MG TAB PO SCH (11:56)
[2018-09-09] MEDS: SPIRONOLACTONE 25 MG TAB PO SCH (11:57)
[2018-09-09] MEDS: predniSONE 20 MG TAB PO SCH (11:57)
[2018-09-09] MEDS: MUPIROCIN 2% 22 GM OINT NS SCH ×2 (12:01→21:18)
[2018-09-09] MEDS ORDERED: DEXAMETHASONE 4 MG/ML VIAL ONE ×2 (12:16)
[2018-09-09] MEDS ORDERED: ALBUTEROL HFA ANES ONLY 200 PUFFS/8.5 GM MDI IH ONE (12:25)
--- NOTE | 2018-09-09 14:00 | POSTOPPROG ---
Post Op Note Date of Operation: 09/09/18 Surgeon: Reagan Tang Assistant: Jordan Helm PAC Anesthesiologist: Jimmie Montero Pre-op Diagnosis: , MR, TAA 4.5, Afib RVR Post-op Diagnosis: as above Procedure: AVR, MVRepair, primary repair TAA, LV epicardial leads, IABP, PVI, ILEANA Findings: see OR report Inf/Abcess present in the surg proc area at time of surgery?: No Depth: Organ Space EBL: Greater than 1000 Complications: none Drains: Other (3 chest tubes y'd, 2 atrial wires, 2 ventricular wires, 2 LV epicardial leads placed in left pocket) Specimen(s): aortic valve, ascending aorta
[2018-09-09] MEDS ORDERED: BISACODYL 10 MG SUPP PR PRN (14:03)
[2018-09-09] MEDS ORDERED: ONDANSETRON 4 MG/2 ML VIAL IVP PRN (14:03)
[2018-09-09] MEDS ORDERED: HYDROCODONE/APAP 5/325 TAB PO PRN (14:03)
[2018-09-09] MEDS ORDERED: ACETAMINOPHEN 325 MG TAB PO PRN (14:03)
[2018-09-09] MEDS ORDERED: ACETAMINOPHEN 650 MG SUPP PR PRN (14:03)
[2018-09-09] MEDS ORDERED: POLYETHYLENE GLYCOL 3350 17 GM PKT PO PRN (14:03)
[2018-09-09] MEDS ORDERED: MAGNESIUM HYDROXIDE 30 ML UDCUP PO PRN (14:03)
[2018-09-09] MEDS ORDERED: SODIUM CL NASAL 45 ML BTL EACHNARE PRN (14:03)
[2018-09-09] MEDS ORDERED: MEPERIDINE 25 MG/0.5 ML AMP IVP PRN (14:03)
[2018-09-09] MEDS ORDERED: PANTOPRAZOLE SODIUM 40 MG VIAL IVP ONE (14:03)
[2018-09-09] MEDS ORDERED: D50W 25 GM/50 ML SYR IVP PRN (14:03)
[2018-09-09] MEDS ORDERED: METOCLOPRAMIDE 10 MG/2 ML VIAL IVP PRN (14:03)
[2018-09-09] MEDS ORDERED: CEPACOL LOZENGE PO PRN (14:03)
[2018-09-09] MEDS ORDERED: LACTULOSE 20 GM/30 ML UDCUP PO PRN (14:03)
[2018-09-09] MEDS ORDERED: ONDANSETRON DISINTEGRATING 4 MG TAB PO PRN (14:03)
[2018-09-09] MEDS ORDERED: EPINEPHrine 1 MG in NS 250 ML IV SCH (14:15)
[2018-09-09] MEDS ORDERED: NS 1,000 ML IV SCH (14:15)
[2018-09-09] MEDS ORDERED: NOREPINEPHRINE BITARTRATE 16 MG in NS 250 ML IV SCH (14:30)
[2018-09-09] MEDS ORDERED: PROPOFOL/EMULSION 1,000 MG/100 ML BOTTLE IV ONE (14:42)
[2018-09-09] MEDS ORDERED: AMIODARONE HCL 150 MG/100 ML BAG (1.5 MG/ML) IV ONE (14:52)
[2018-09-09] MEDS: POTASSIUM Cl (KCl) 50 ML IV PRN ×3 (15:14→22:41)
--- NOTE | 2018-09-09 15:22 | PDINTPN ---
Field Contractor Progress Note Assessment/Plan: ASSESSMENT 68-year-old male with asthma admitted with new onset nonischemic cardiomyopathy requiring intra-aortic balloon pump # severe aortic stenosis s/p AVR, MVRepair, primary repair TAA, LV epicardial leads, IABP, PVI, ILEANA 09/09/18 # shock - post operative vasoplegia # respiratory failure with V/Q mismatch and shunt. # nonischemic cardiomyopathy. Coronary angiogram without CAD. # pulmonary edema # asthma exacerbation. Wheezing on exam seems more asthma than cardiac mediated. More anxious with albuterol. # atrial fibrillation # anxiety. History of anxiety as outpatient. Not on medications PLAN # increase PEEP to help oxygenation, increase RR given acidemia # continue vasopressors and colloid bolus as needed # IABP at 1:4, may consider removing tomorrow # heparin gtt # continue rate control for afib # Pred 20 started 09/08/2018 for mild asthma exacerbation # minimize albuterol treatments for shortness of breath and was wheezing as this will worsen anxiety # low-dose Ativan as needed # Feeding - NPO # Analgesia none # Sedation Ativan as needed # Thromboprophylaxis - hep gtt # Head of bed elevated # Ulcer prophylaxis - PPI # Glucose SSI # Skin no skin breakdown # Delirium - delirium precautions IMAGING I personally reviewed interpreted radiographic images well as formal radiology reads Chest x-ray 09/08/2018 with interstitial edema 09/09/18 chest x-ray. Postoperative changes as expected. Mckee in right main PA , sternotomy wires in place, ET tube slightly low, postoperative infiltrate. 09/08/2018 dobutamine stress echo-severe aortic stenosis with increasing valvular gradient with dobutamine. EF approximately 10%. No focal wall motion abnormalities or inducible ischemia Patient is critically ill due to life threatening organ dysfunction and is at high risk for decompensation and . Total critical care time 110 minutes, which was spent at bedside with CT surgeon titrating vasopressors, adjusting ventillator. 09/09/18 16:04 Subjective: Went to OR this AM for severe , s/p AVR, MVRepair, primary repair TAA, LV epicardial leads, IABP, PVI, ILEANA with severe shock and respiratory failure Objective: Vital Signs Temp Pulse Resp BP Pulse Ox 36.6 C 88 14 108/71 99 09/09/18 06:43 09/09/18 09:09 09/09/18 09:09 09/09/18 09:09 09/09/18 09:09 Laboratory Results 09/09/18 05:55 09/09/18 05:55 09/08/18 09/09/18 09/10/18 05:59 05:59 05:59 Intake Total 2363 200 Output Total 1375 1200 Balance 988 -1000 PT 14.1 SEC (12.0-15.0) 09/05/18 19:00 INR 1.07 (0.83-1.16) 09/05/18 19:00 Physical Exam - Physical Exam General Appearance: other (Intubated, sedated) EENT: PERRL/EOMI, ET tube Neck: supple, normal inspection, other (Right Cordis and Mckee in place) Respiratory: lungs clear, other (Midline sternotomy site clean dry and intact) Cardiac/Chest: normal peripheral pulses, regular rate, rhythm, edema Abdomen: normal bowel sounds, non-tender, soft, No organomegaly Skin: normal color, warm/dry Neuro/Psych: no motor/sensory deficits, alert, other (Intubated, sedated, no focal deficits) ICD10 Worksheet Patient Problems: Problems Problem Status Onset Atrial fibrillation with RVR Acute Cardiomyopathy Acute On intra-aortic balloon pump assist Acute S/P AVR Acute S/P MVR (mitral valve repair) Acute S/P ascending aortic aneurysm repair Acute S/P left atrial appendage ligation Acute Status post circumferential ablation of pulmonary vein Acute Left-sided epistaxis Acute
[2018-09-09] MEDS: DOBUTamine/DEXTROSE 250 ML IV SCH ×2 (15:30→15:35)
[2018-09-09] MEDS ORDERED: AMIODARONE HCL 100 ML IV ONE (15:30)
[2018-09-09] MEDS: PROPOFOL/EMULSION 100 ML IV SCH ×2 (15:37→22:00)
[2018-09-09] MEDS: INSULIN REGULAR HUMAN 100 UNIT in NS 100 ML IV SCH (15:38)
[2018-09-09] MEDS ORDERED: AMIODARONE TACHY-6HR INFSN (ORDER 2/3) PREMIX IV ONE (16:30)
--- NOTE | 2018-09-09 17:26 | GOP ---
[f rep st] OPERATIVE REPORT DATE OF OPERATION: 09/09/2018 SURGEON: Reagan Tang MD POST HOLE DIGGING MACHINE OPERATOR: Jordan Helm P.A.-C. PREOPERATIVE DIAGNOSIS: 1. Congestive heart failure. 2. Severe symptomatic aortic stenosis. 3. Moderately severe mitral regurgitation. 4. Paroxysmal atrial fibrillation. 5. Markedly diminished left ventricular function with wide QRS. 6. Ascending aortic aneurysm. POSTOPERATIVE DIAGNOSIS: 1. Congestive heart failure. 2. Severe symptomatic aortic stenosis. 3. Moderately severe mitral regurgitation. 4. Paroxysmal atrial fibrillation. 5. Markedly diminished left ventricular function with wide QRS. 6. Ascending aortic aneurysm. PROCEDURE PERFORMED: 1. Aortic valve replacement with a 25 mm Carter Intuity bioprosthetic valve. 2. Mitral valve repair with a 28 mm physio annuloplasty ring. 3. Ascending aortic aneurysm resection and primary repair. 4. Pulmonary vein isolation, bilateral. 5. Left atrial appendage occlusion. 6. Placement of left ventricular epicardial pacing leads. 7. Placement of right femoral artery intra-aortic balloon pump. 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 He does have a history of reactive airway disease and was recently s een and treated for that in another city. He presents to the hospital in [facility]. He was found to have severe aortic stenosis and markedly diminished left ventricular function. He was recommended to undergo surgical valve replacement. DESCRIPTION OF PROCEDURE: The patient was taken to the operating room and placed on the operating ta ble in supine position. After induction of general anesthesia and single-lumen endotracheal tube int ubation, the patient was prepped and draped sterilely. We began by putting a 6-Panamanian sheath in the right common femoral artery, which was to be used later for placement of an intra-aortic balloon pump . Next, a standard median sternotomy was performed. The patient was fully heparinized. He was then cannulated with a Corina 8.0 soft flow aortic cannula as well as 24-Panamanian and 28-Panamanian SVC and IV C cannulas. Cardiopulmonary bypass was instituted. The pulmonary veins bilaterally were encircled a nd then treated with RFA ablation with 3 ablation lines on each side. The left atrial appendage was then occluded with a ligature. Having completed this now, the cross-clamp was applied, and the heart was arrested with 1 L of [place] solution. The aorta was opened. It was extremely thin. It measu red about 4.5 cm. We resected the ascending aorta, sized after resection of this bicuspid valve whic h had fusion of the left and right leaflets. This was resected. The anulus was meticulously debride d and sized to a 25 mm Intuity valve. Attention was next directed at the left atrium. No structural abnormalities of the valve could be identified, and this was likely functional mitral r egurgitation, and so we sized this to a 28 mm annuloplasty ring. Sutures were placed around the anul us, and the ring was seated without difficulty. The left atrium was then closed. Attention was next directed at the aortic valve. It had been previously sized, and 3 sutures were then placed at the n adir of each of the leaflets and then placed through the sewing ring of the 25 mm Intuity valve. Thi s was seated without difficulty. The balloon was inflated and then the valve was secured in place wi th the Cor-Knot device. The proximal and distal aorta were then reinforced with woven Dacron, and th en a primary reanastomosis of the aorta was performed without difficulty. The cross-clamp was then r emoved. Atrial and ventricular pacing wires were placed. Two left ventricular epicardial pacing fish ds were screwed in the lateral wall up high near the AV groove. These were then brought out through the anterior chest wall and tunneled up to the left subpectoral area for later use. Once this had be en completed, we then placed the intra-aortic balloon pump through the right common femoral artery ov er a wire which was guided by transesophageal echo. The patient was then from cardiopulmon milena bypass. It was noted that he got a dose of Precedex just after separation from bypass, and he di d have some profound vasodilatory effect. He required a lot of fluid and inotropic support, but the transesophageal echo showed that a normally functioning bioprosthetic valve in the aortic position. The mitral valve showed no residual mitral regurgitation. Left ventricular function appeared somewha t improved, but this was with inotropic support. So once off bypass, the protamine was administered, and the patient was decannulated. We spent about an hour just organizing the inotropic support and getting the proper pacer function as he had some rhythm irregularities. Once this was all completed, and hemostasis had been achieved, the aorta was covered, and some of the right ventricle was covered . The chest was then closed after placement of left right and mediastinal chest tubes. The chest wa s closed with #6 stainless steel wires. Subcutaneous tissue and skin were closed with running Vicryl suture. The patient was taken to the ICU in a critical but stable condition. /[id number]/MODL
[2018-09-09] MEDS ORDERED: NA BICARBONATE 50 MEQ/50 ML VIAL IV ONE ×2 (17:30→19:00)
[2018-09-09] MEDS ORDERED: SODIUM BICARBONATE 50 MEQ/50 ML SYR IVP ONE (17:30)
[2018-09-09] MEDS: fentaNYL 100 MCG/2 ML INJ IVP PRN ×2 (17:36→20:34)
[2018-09-09] MEDS ORDERED: fentaNYL/NACL 100 ML IV SCH (18:00)
[2018-09-09] MEDS ORDERED: IPRATROPIUM/ALBUTEROL 3 ML DEYVIAL IH SCH (18:00)
[2018-09-09] MEDS: ALBUMIN 5% 250 ML IV PRN ×2 (18:14→19:39)
[2018-09-09] MEDS ORDERED: EPINEPHrine 1 MG/10 ML SYR IVP ONE (20:10)
[2018-09-09] MEDS: IPRATROPIUM/ALBUTEROL 3 ML DEYVIAL IH SCH (20:27)
[2018-09-09] MEDS ORDERED: ALBUMIN 5% 500 ML IV ONE (20:30)
[2018-09-09] MEDS: EPINEPHrine 8 MG in NS 250 ML IV SCH (20:34)
[2018-09-09] MEDS: FUROSEMIDE 40 MG TAB PO SCH (20:37)
[2018-09-09] MEDS: SENNOSIDES/DOCUSATE SODIUM TAB PO SCH (21:22)
[2018-09-09] MEDS: ceFAZolin 2 GM/DEXTROSE 100 ML IV SCH (22:06)
[2018-09-09] MEDS ORDERED: AMIODARONE TACHY-18HR INFSN (ORDER 3/3) IV ONE (22:30)
[2018-09-10] MEDS: IPRATROPIUM/ALBUTEROL 3 ML DEYVIAL IH SCH ×6 (00:12→18:58)
[2018-09-10] MEDS: EPINEPHrine 8 MG in NS 250 ML IV SCH ×2 (00:59→13:58)
[2018-09-10] MEDS: PROPOFOL/EMULSION 100 ML IV SCH ×2 (03:04→10:18)
[2018-09-10] MEDS: fentaNYL 100 MCG/2 ML INJ IVP PRN ×6 (04:37→17:01)
[2018-09-10 04:43] LABS: PLATELET COUNT 107 10^3/uL (150-400)
[2018-09-10] MEDS ORDERED: ALBUMIN 5% 250 ML IV ONE ×3 (05:00→18:30)
[2018-09-10] MEDS: INSULIN REGULAR HUMAN 100 UNIT in NS 100 ML IV SCH (05:54)
[2018-09-10] MEDS: ceFAZolin 2 GM/DEXTROSE 100 ML IV SCH ×3 (05:59→22:10)
--- NOTE | 2018-09-10 06:58 | SOAPPROG ---
SOAP Progress Note Assessment/Plan: POD #1: AVR with #25 Carter Intuity bioprosthesis, MV repair with #28 Physio annuloplasty ring, ascending aortic aneurysm resection with primary repair, BL pulmonary vein isolation, ligation left atrial appendage, placement right femoral artery IABP, placement of left epicardial ventricular leads x2 with tunneling to left chest Severe with ascending aortic aneurysm - Thromboprophylaxis as per PAF - Dela Cruz catheter to remain while intubated, continue AL while on drips, CTs to suction Moderate AR - Mgmt as per AVR Paroxysmal atrial fibrillation s/p BL PVI with post-op RVR - Continue amiodarone drip - Coumadin with INR goal 2-3, duration at least 2 months or longer pending stability of rhythm, when medically appropriate Acute blood loss anemia with coagulopathy - Coagulopathy reversed with 2 FFP and 2 platelets - H/H stable without the need for PRBC transfusions Class IV CHF with systolic and diastolic dysfunction with post-operative shock and pulmonary edema - IABP to be removed this AM - Wean drips and vent as tolerated - Lasix/BB/ACEi/ARB when medically appropriate - Epicardial ventricular lead mgmt as per cardiology Respiratory failure with h/o reactive airway disease - Will work on extubation once IABP removed - Further respiratory mgmt as per pulmonology Non-obstructive CAD - Stain/ASA/BB for secondary prevention when appropriate Subjective: Follows commands when sedation lightened. Objective: Vital Signs Temp Pulse Resp BP Pulse Ox 38.0 C 107 H 18 113/61 99 09/10/18 04:00 09/10/18 06:00 09/10/18 06:00 09/10/18 06:00 09/10/18 06:00 Laboratory Results 09/10/18 04:00 09/10/18 04:00 09/09/18 09/10/18 09/11/18 05:59 05:59 05:59 Intake Total 200 3613 Output Total 1200 2020 Balance -1000 1593 PT 14.1 SEC (12.0-15.0) 09/05/18 19:00 INR 1.07 (0.83-1.16) 09/05/18 19:00 Physical Exam - Physical Exam General Appearance: no apparent distress EENT: ET tube Neck: normal inspection Respiratory: No respiratory distress Cardiac/Chest: regular rate, rhythm Abdomen: non-tender, soft, No distended Skin: normal color, warm/dry Extremities: pedal edema Neuro/Psych: other (sedated ) ICD10 Worksheet Patient Problems: Problems Problem Status Onset Atrial fibrillation with RVR Acute Cardiomyopathy Acute On intra-aortic balloon pump assist Acute S/P AVR Acute S/P MVR (mitral valve repair) Acute S/P ascending aortic aneurysm repair Acute S/P left atrial appendage ligation Acute Status post circumferential ablation of pulmonary vein Acute Left-sided epistaxis Acute
[2018-09-10] MEDS ORDERED: predniSONE 20 MG TAB TUBE SCH (09:00)
[2018-09-10] MEDS: SENNOSIDES/DOCUSATE SODIUM TAB PO SCH ×2 (09:11→22:20)
[2018-09-10] MEDS: PANTOPRAZOLE SODIUM 40 MG TAB PO SCH (09:14)
[2018-09-10] MEDS: MUPIROCIN 2% 22 GM OINT NS SCH ×2 (09:15→22:19)
[2018-09-10] MEDS ORDERED: PANTOPRAZOLE SODIUM 40 MG VIAL IVP ONE (09:45)
[2018-09-10] MEDS ORDERED: ALBUMIN 5% 250 ML BOTTLE IV ONE (12:00)
--- NOTE | 2018-09-10 12:55 | ASMTCMCOM ---
CM Note CM Note Notes: Patient had extensive heart surgery yesterday. OT/PT/LINE FIXER evals are ordered. Patient still intubated. CM will follow. Date Signed: 09/10/2018 12:54 PM Electronically Signed By:Dalia Leyva LCSW
[2018-09-10] MEDS ORDERED: EPINEPHrine 1 MG in NS 250 ML IV SCH (14:00)
[2018-09-10] MEDS ORDERED: ASPIRIN 81 MG CHEWABLE TAB TUBE PRN (14:03)
--- NOTE | 2018-09-10 14:33 | PDINTPN ---
Motion Picture Camera Operator Progress Note Assessment/Plan: ASSESSMENT 68-year-old male with asthma admitted with new onset nonischemic cardiomyopathy requiring intra-aortic balloon pump # severe aortic stenosis s/p AVR, MVRepair, primary repair TAA, LV epicardial leads, IABP, PVI, ILEANA 09/09/18 # NICM- EF 15% prior to surgery # shock - post operative vasoplegia # respiratory failure with V/Q mismatch and shunt. # nonischemic cardiomyopathy. Coronary angiogram without CAD. # pulmonary edema # asthma exacerbation. Wheezing on exam seems more asthma than cardiac mediated. More anxious with albuterol. # atrial fibrillation # anxiety. History of anxiety as outpatient. Not on medications PLAN # continue to wean vasopressors as tolerated # wean to extubate after IABP is out # heparin gtt # continue rate control for afib # Pred 20 started 09/08/2018 for mild asthma exacerbation, continue for now, wean as able # duonebs # low-dose Ativan as needed # Feeding - advance when extubated # Analgesia none # Sedation Ativan as needed # Thromboprophylaxis - hep gtt # Head of bed elevated # Ulcer prophylaxis - PPI # Glucose SSI # Skin no skin breakdown # Delirium - delirium precautions IMAGING I personally reviewed interpreted radiographic images well as formal radiology reads Chest x-ray 09/08/2018 with interstitial edema 09/10/18 CXR lines and support devices in appropriate position. Interval improvement in pulmonary opacities 09/09/18 chest x-ray. Postoperative changes as expected. [place] in right main PA , sternotomy wires in place, ET tube slightly low, postoperative infiltrate. 09/08/2018 dobutamine stress echo-severe aortic stenosis with increasing valvular gradient with dobutamine. EF approximately 10%. No focal wall motion abnormalities or inducible ischemia Patient is critically ill due to life threatening organ dysfunction and is at high risk for decompensation and . Total critical care time 90 minutes, which was spent evaulating patient, multidisiplinary rounds, titrating ventilator and discussions with CT surgery and nursing. Subjective: OR yesterday. Difficulties coming of pump. Profound postoperative shock and respiratory failure. Clinically improving today with decreasing vaso request her prior meds. Still on mechanical ventilation. Objective: Vital Signs Temp Pulse Resp BP Pulse Ox 37.2 C 100 21 H 83/53 L 100 09/10/18 13:00 09/10/18 13:00 09/10/18 13:00 09/10/18 13:00 09/10/18 13:00 Laboratory Results 09/10/18 04:00 09/10/18 04:00 09/09/18 09/10/18 09/11/18 05:59 05:59 05:59 Intake Total 200 3613 Output Total 1200 2020 Balance -1000 1593 PT 14.1 SEC (12.0-15.0) 09/05/18 19:00 INR 1.07 (0.83-1.16) 09/05/18 19:00 Physical Exam - Physical Exam General Appearance: other (Intubated, sedated) EENT: PERRL/EOMI, ET tube, No pharyngeal erythema Neck: supple, normal inspection Respiratory: other (Mechanical breath sounds bilaterally, no significant wheezing today) Cardiac/Chest: normal peripheral pulses, regular rate, rhythm, edema, other ( Sternotomy site clean dry and intact) Abdomen: normal bowel sounds, non-tender, soft Skin: normal color, warm/dry, No cyanosis Neuro/Psych: other (Intubated, sedated, no focal deficit) ICD10 Worksheet Patient Problems: Problems Problem Status Onset Atrial fibrillation with RVR Acute Cardiomyopathy Acute On intra-aortic balloon pump assist Acute S/P AVR Acute S/P MVR (mitral valve repair) Acute S/P ascending aortic aneurysm repair Acute S/P left atrial appendage ligation Acute Status post circumferential ablation of pulmonary vein Acute Left-sided epistaxis Acute
[2018-09-10] MEDS: DOBUTamine/DEXTROSE 250 ML IV SCH (15:52)
[2018-09-10] MEDS ORDERED: IPRATROPIUM/ALBUTEROL 3 ML DEYVIAL ONE (15:55)
[2018-09-10] MEDS ORDERED: AMIODARONE TACHY-18HR INFSN (ORDER 3/3) IV ONE (16:30)
[2018-09-10] MEDS ORDERED: FUROSEMIDE 40 MG/4 ML VIAL IVP ONE ×2 (16:44→21:00)
[2018-09-10] MEDS ORDERED: AMIODARONE HCL 200 ML IV SCH (17:00)
[2018-09-10] MEDS ORDERED: EPINEPHrine 1 MG/10 ML SYR IVP ONE (17:51)
[2018-09-10] MEDS ORDERED: PHENYLEPHRINE HCL 100 MCG/ML SYR ONE (17:51)
--- NOTE | 2018-09-10 18:16 | SUROPNOTE ---
[facility] Operative Report - Surgery Emergency Endotracheal Intubation Date and Time 09/10/2018 1800 Operators S Neri Alvarez MD Indication Respiratory failure Consent Verbal consent was obtained via patient/next of kin Preoxygenation High-flow nasal cannula and bag-valve mask Medications Ketamine 150 mg Rocuronium 150 mg Epinephrine 50 mcg Equipment Mac 3 7.5 ETT Maccormick bowles grade view intubation 1 Number of Attempts 1 Post Procedure Placement was confirmed with capnography, breath sounds were ausculated bilaterally. ETT boswell, 25 cm at teeth, CXR ordered Complications None
[2018-09-10] MEDS ORDERED: LIDOCAINE 1% 300 MG/30 ML SDV ONE (18:30)
[2018-09-10] MEDS ORDERED: NALOXONE HCL 0.4 MG/ML INJ ONE (19:09)
[2018-09-10] MEDS ORDERED: ROCURONIUM 100 MG/10 ML VIAL IVP ONE (19:30)
[2018-09-10] MEDS ORDERED: KETAMINE 200 MG/20 ML VIAL IVP ONE (19:30)
--- NOTE | 2018-09-10 19:33 | SUROPNOTE ---
[facility] Operative Report - Surgery PROCEDURE NOTE: Flexible bronchoscopy with bronchoalveolar lavage and therapeutic aspiration Procedure Chargemaster Analyst S Neri Alvarez MD Procedure: Flexible bronchoscopy with bronchoalveolar lavage and therapeutic aspiration Indication: Pneumonia, respiratory Preoperative diagnosis: Pneumonia, respiratory failure Postoperative diagnosis: Pneumonia, respiratory failure Consent: Obtained from prior to procedure after explanation of the procedure, alternatives, risks, and benefits. Anesthesiologist NA Sedation Type: deep sedation Sedation Medications: propofol Medications: None Procedure Summary: Time out was performed. The bronchoscope was then introduced via the endotracheal tube into the trachea. ET tube was noted to be 1.5 cm with a campos and was retracted and secured in appropriate position. Left- sided airways with both mucus and frothy fluid consistent with pulmonary edema. All secretions were therapeutically aspirated. Right-sided airways were inspected and had thin frothy secretions. All of these were therapeutically aspirated. Next a formal BAL was performed in the lingula by instilling 100 cc of NS and aspirating back 30 cc of turbid fluid. This was sent for culture. EBL none Complications: None Impression: Mucous plugging at the lobar and segmental level in left lung. Bilateral frothy secretions consistent with pulmonary edema. Items to Follow-up: BAL fluid sent for bacterial cultures, cell count and diff S Neri Alvarez MD Pulmonary and Critical Care Medicine [phone]
[2018-09-10] MEDS ORDERED: NALOXONE HCL 0.4 MG/ML INJ IVP ONE (20:00)
--- NOTE | 2018-09-10 20:01 | CPEKG ---
Test Reason : OPEN Blood Pressure : / mmHG Vent. Rate : 118 BPM Atrial Rate : 000 BPM P-R Int : 122 ms QRS Dur : 160 ms QT Int : 423 ms P-R-T Axes : 180 132 047 degrees QTc Int : 593 ms Sinus tachycardia Atypical LBBB Confirmed by Doyle De La Rosa ([id number]) on 09/10/2018 8:00:21 PM Referred By: Mike Elliott Confirmed By:Doyle De La Rosa
[2018-09-10] MEDS: ASPIRIN 81 MG CHEWABLE TAB PO SCH (20:15)
[2018-09-10] MEDS: predniSONE 20 MG TAB TUBE SCH (20:16)
[2018-09-10] MEDS ORDERED: SODIUM BICARBONATE 50 MEQ/50 ML SYR ONE (20:29)
[2018-09-10] MEDS ORDERED: FUROSEMIDE 40 MG/4 ML VIAL ONE (20:31)
[2018-09-10] MEDS ORDERED: SODIUM BICARBONATE 50 MEQ/50 ML SYR IVP ONE (21:00)
[2018-09-10] MEDS ORDERED: INSULIN REGULAR HUMAN 100 UNIT/ML UNIT IVP ONE (21:00)
[2018-09-10] MEDS ORDERED: D50W 25 GM/50 ML SYR IVP ONE (21:00)
[2018-09-10] MEDS: ALBUTEROL 60 PUFFS/8 GM MDI IH SCH (22:03)
[2018-09-10] MEDS: FAMOTIDINE 20 MG/NACL 50 ML IV SCH (22:10)
[2018-09-10] MEDS: CHLORHEXIDINE GLUCONATE 15 ML UDL PO SCH (22:19)
[2018-09-11] MEDS: ALBUTEROL 60 PUFFS/8 GM MDI IH SCH ×6 (00:33→17:39)
[2018-09-11 04:07] LABS: PLATELET COUNT 88 10^3/uL (150-400)
[2018-09-11 04:14] LABS: INR 3.39 (0.83-1.16)
[2018-09-11] MEDS: ceFAZolin 2 GM/DEXTROSE 100 ML IV SCH (05:53)
--- NOTE | 2018-09-11 07:05 | SOAPPROG ---
SOAP Progress Note Assessment/Plan: POD #2: AVR with #25 Carter Intuity bioprosthesis, MV repair with #28 Physio annuloplasty ring, ascending aortic aneurysm resection with primary repair, BL pulmonary vein isolation, ligation left atrial appendage, placement right femoral artery IABP, placement of left epicardial ventricular leads x2 with tunneling to left chest Drips: Dobutamine 4, Epi 7, Propofol, Insulin Severe with ascending aortic aneurysm - Thromboprophylaxis as per PAF - Travis catheter to remain while intubated for strict I/O, continue AL while on drips, CTs to suction Moderate AR - Mgmt as per AVR Paroxysmal atrial fibrillation s/p BL PVI with post-op RVR - Amiodarone use limited by hepatic failure - Coumadin with INR goal 2-3, duration at least 2 months or longer pending stability of rhythm, when medically appropriate Acute post-op blood loss anemia with coagulopathy - Coagulopathy reversed with multiple products - 1U PRBC transfused 09/10 for hypotension Class IV CHF with systolic (EF ~15%) and diastolic dysfunction with post- operative shock and pulmonary edema - Wean drips and vent as tolerated - Lasix/BB/ACEi/ARB when medically appropriate - Epicardial ventricular lead mgmt as per cardiology Respiratory failure with h/o reactive airway disease - Re-intubated evening of 09/10 - s/p bronchoscopy with evidence of L mucous plugging and pulmonary edema - Further respiratory mgmt as per pulmonology Hepatic failure secondary to hypotension with possible pre-op ETOH abuse - AST/ALT markedly elevated - Continue supportive care Non-obstructive CAD - Stain/ASA/BB for secondary prevention when appropriate Subjective: Sedated Objective: Vital Signs Temp Pulse Resp BP Pulse Ox 38.6 C H 115 H 27 H 130/73 H 97 09/11/18 03:59 09/11/18 06:05 09/11/18 06:00 09/11/18 06:00 09/11/18 06:05 Microbiology 09/10/18 18:45 Gram Stain - Final Bronchial Alveolar Lavage - Left Lower Lobe Laboratory Results 09/11/18 04:00 09/11/18 04:00 09/10/18 09/11/18 09/12/18 05:59 05:59 05:59 Intake Total 3613 3205 Output Total 2019 308 Balance 1593 125 PT 34.0 SEC (12.0-15.0) H 09/11/18 04:00 INR 3.39 (0.83-1.16) H 09/11/18 04:00 Physical Exam - Physical Exam General Appearance: unresponsive EENT: scleral icterus (R), scleral icterus (L), ET tube Neck: normal inspection Respiratory: No respiratory distress Cardiac/Chest: tachycardia Abdomen: non-tender, soft, No distended Male Genitalia: other (travis in place) Skin: warm/dry, jaundice Extremities: pedal edema Neuro/Psych: other (sedated) ICD10 Worksheet Patient Problems: Problems Problem Status Onset Atrial fibrillation with RVR Acute Cardiomyopathy Acute On intra-aortic balloon pump assist Acute S/P AVR Acute S/P MVR (mitral valve repair) Acute S/P ascending aortic aneurysm repair Acute S/P left atrial appendage ligation Acute Status post circumferential ablation of pulmonary vein Acute Left-sided epistaxis Acute
[2018-09-11] MEDS ORDERED: DEXMEDETOMIDINE HCL 400 MCG in NS 100 ML IV SCH (07:30)
[2018-09-11] MEDS ORDERED: PROPOFOL/EMULSION 100 ML IV SCH (08:00)
[2018-09-11] MEDS: FAMOTIDINE 20 MG/NACL 50 ML IV SCH (08:53)
[2018-09-11] MEDS: ASPIRIN 81 MG CHEWABLE TAB PO SCH (08:57)
--- NOTE | 2018-09-11 08:57 | POSTANESTH ---
Post Anesthetic Evaluation Cardiovascular Status: Tx Hyper/Hypo-tension, Tx Over/Under Hydration (pt with existing severe CHF) Respiratory Status: Other, See Comment (intubated for respiratory failure and PNA) Level of Consciousness/Mental Status: Unconscious (sedated for ventilation) Pain Control: Adequate, Prn Tx Ordered Nausea/Vomiting Control: Adequate, Prn Tx Ordered Complications Possibly Related to Anesthesia: None Noted
[2018-09-11] MEDS: predniSONE 20 MG TAB TUBE SCH (08:58)
[2018-09-11] MEDS: SENNOSIDES/DOCUSATE SODIUM TAB PO SCH ×2 (08:58→20:43)
[2018-09-11] MEDS ORDERED: D50W 25 GM/50 ML SYR IVP PRN (09:10)
[2018-09-11] MEDS: PANTOPRAZOLE SODIUM 40 MG TAB PO SCH (09:35)
[2018-09-11] MEDS: INSULIN LISPRO 100 UNIT/ML SC SCH ×3 (09:43→18:51)
--- NOTE | 2018-09-11 10:05 | PDINTPN ---
Coffee Supervisor Progress Note Assessment/Plan: ASSESSMENT 68-year-old male with asthma admitted with new onset nonischemic cardiomyopathy requiring intra-aortic balloon pump # severe aortic stenosis s/p AVR, MVRepair, primary repair TAA, LV epicardial leads, IABP, PVI, ILEANA 09/09/18 # NICM- EF 15% prior to surgery # shock - post operative vasoplegia plus cardiogenic shock # respiratory failure - hypervolemia, L sided mucous plugging, possible pna # nonischemic cardiomyopathy. Coronary angiogram without CAD. # pulmonary edema # asthma exacerbation. Wheezing on exam seems more asthma than cardiac mediated. More anxious with albuterol. # atrial fibrillation # anxiety. History of anxiety as outpatient. Not on medications PLAN # continue to wean vasopressors as tolerated # bid pressure support trials (failed twice today) # wean pred as able, started 09/08/2018 for mild asthma exacerbation, continue for now, wean as able # duonebs # low-dose Ativan as needed # Feeding - advance when extubated # Analgesia none # Sedation propofol, avoid precedex due to possible anaphylaxis in OR # Thromboprophylaxis - SQ hep # Head of bed elevated # Ulcer prophylaxis - PPI # Glucose SSI # Skin no skin breakdown # Delirium - delirium precautions LABS 09/10/18 Bronch - wbc 62,800, 97% neutrophils IMAGING I personally reviewed interpreted radiographic images well as formal radiology reads Chest x-ray 09/08/2018 with interstitial edema 09/10/18 CXR lines and support devices in appropriate position. Interval improvement in pulmonary opacities 09/09/18 chest x-ray. Postoperative changes as expected. [place] in right main PA , sternotomy wires in place, ET tube slightly low, postoperative infiltrate. 09/08/2018 dobutamine stress echo-severe aortic stenosis with increasing valvular gradient with dobutamine. EF approximately 10%. No focal wall motion abnormalities or inducible ischemia Patient is critically ill due to life threatening organ dysfunction and is at high risk for decompensation and . Total critical care time 55 minutes, which was spent evaluating patient, multidisciplinary rounds, titrating ventilator and discussions with CT surgery and nursing. 09/11/18 20:51 Subjective: Worsening resp status and hypotension yesterday requiring emergent intubation and titration of vasopressors, blood and diuresis, bronched with mucus plugging and neutrophilia. Objective: Vital Signs Temp Pulse Resp BP Pulse Ox 38.4 C H 109 H 24 H 126/68 H 97 09/11/18 09:00 09/11/18 09:00 09/11/18 09:00 09/11/18 09:00 09/11/18 09:00 Microbiology 09/10/18 18:45 Gram Stain - Final Bronchial Alveolar Lavage - Left Lower Lobe Laboratory Results 09/11/18 04:00 09/11/18 04:00 09/10/18 09/11/18 09/12/18 05:59 05:59 05:59 Intake Total 3613 3205 Output Total 2019 3080 275 Balance 1593 125 -275 PT 34.0 SEC (12.0-15.0) H 09/11/18 04:00 INR 3.39 (0.83-1.16) H 09/11/18 04:00 Physical Exam - Physical Exam General Appearance: mild distress EENT: PERRL/EOMI, pharynx normal, ET tube Neck: supple, normal inspection Respiratory: chest non-tender, respiratory distress, wheezing Cardiac/Chest: normal peripheral pulses, regular rate, rhythm, edema Abdomen: normal bowel sounds, non-tender, soft Skin: normal color, warm/dry Extremities: normal range of motion, non-tender, normal inspection Neuro/Psych: sensory deficit, cognition abnormalities, speech abnormalities ICD10 Worksheet Patient Problems: Problems Problem Status Onset Atrial fibrillation with RVR Acute Cardiomyopathy Acute On intra-aortic balloon pump assist Acute S/P AVR Acute S/P MVR (mitral valve repair) Acute S/P ascending aortic aneurysm repair Acute S/P left atrial appendage ligation Acute Status post circumferential ablation of pulmonary vein Acute Left-sided epistaxis Acute
[2018-09-11] MEDS: fentaNYL 100 MCG/2 ML INJ IVP PRN ×4 (10:56→16:17)
[2018-09-11] MEDS ORDERED: ACETAMINOPHEN 325 MG TAB TUBE PRN (11:30)
[2018-09-11] MEDS ORDERED: LACTULOSE 20 GM/30 ML UDCUP TUBE PRN (11:30)
[2018-09-11] MEDS ORDERED: MAGNESIUM HYDROXIDE 30 ML UDCUP TUBE PRN (11:30)
[2018-09-11] MEDS ORDERED: HYDROCODONE/APAP 5/325 TAB TUBE PRN (11:30)
[2018-09-11] MEDS ORDERED: ONDANSETRON DISINTEGRATING 4 MG TAB TUBE PRN (11:30)
[2018-09-11] MEDS: CHLORHEXIDINE GLUCONATE 15 ML UDL PO SCH ×2 (11:59→20:43)
[2018-09-11] MEDS ORDERED: FUROSEMIDE 20 MG/2 ML VIAL ONE (14:31)
[2018-09-11] MEDS: DOBUTamine/DEXTROSE 250 ML IV SCH (14:34)
[2018-09-11] MEDS ORDERED: FUROSEMIDE 20 MG/2 ML VIAL IV ONE (14:45)
[2018-09-11] MEDS ORDERED: IPRATROPIUM/ALBUTEROL 3 ML DEYVIAL IH PRN (17:34)
[2018-09-11] MEDS: IPRATROPIUM/ALBUTEROL 3 ML DEYVIAL IH SCH ×2 (17:44→20:26)
[2018-09-11] MEDS: FAMOTIDINE 20 MG TAB TUBE SCH (20:43)
[2018-09-12] MEDS: INSULIN LISPRO 100 UNIT/ML SC SCH ×4 (01:31→18:08)
[2018-09-12 04:41] LABS: PLATELET COUNT 58 10^3/uL (150-400)
[2018-09-12 04:47] LABS: INR 2.87 (0.83-1.16)
[2018-09-12] MEDS: IPRATROPIUM/ALBUTEROL 3 ML DEYVIAL IH SCH ×5 (04:56→20:56)
--- NOTE | 2018-09-12 07:44 | SOAPPROG ---
SOAP Progress Note Assessment/Plan: Assessment: POD#3 AVR#25 Intuity bioprosthesis, MVA#28 Physio ring, asc ao aneurysm resection w primary repair, bilat pulmonary vein isolation, suture ligation left atrial appendage, placement right femoral IABP, placement of left epicardial ventricular leads x2 with tunneling to left chest Drips: Dobutamine 4 Severe /moderate AI/ascending aortic aneurysm s/p tissue AVR and asc ao rsxn - Thromboprophylaxis as per PAF - Dela Cruz catheter to remain while intubated for strict I/O, continue AL while on drips, CTs to suction Paroxysmal atrial fibrillation s/p BL PVI with post-op RVR - Amiodarone avoided d/t hepatic failure - Currently auto-anticoagulated. Eventual antithrombotic prophylaxis with Coumadin, INR goal 2-3, duration at least 2 months pending stability of rhythm. Acute expected blood loss anemia with coagulopathy - Stable s/p 2u PRBC, 2u FFP, and 2u Plt. - Chemical VTE prophylaxis not needed. Class IV CHF with systolic (EF ~15%) and diastolic dysfunction with post- operative shock and pulmonary edema - IABP out POD#1. Vasoactive support weaned as tolerated. - Lasix/BB/ACEi/ARB when medically appropriate - Epicardial ventricular lead mgmt as per cardiology Respiratory failure with h/o reactive airway disease - Re-intubated evening of 214. Bronchoscopy with evidence of L mucous plugging and pulmonary edema. Cxs neg. - Diuresis intensified and successfully extubated yest afternoon. Strict NPO pending clearance for orals by INCIDENT MANAGER. - Pulmonology following Hepatic failure/shock liver secondary to LCOS with hypotension +/- possible pre- op ETOH abuse - Marked elev in early postop Tbili, AST/ALT, and INR - Clinical improvement w supportive care. Follow. Non-obstructive CAD - Stable. Secondary prevention with ASA/BB/statin when appropriate. Plan: Wean dobutamine. D/C eufemia once off dobutamine. Remove ant med drain and split pleural tubes. Cont IV diuresis. Diet per INCIDENT MANAGER. Convert meds to orals if feasible. Mobilize. 09/12/18 07:42 Subjective: Happy to be alive. Hungry. Motivated to participate in PT. Objective: Vital Signs Temp Pulse Resp BP Pulse Ox 37.5 C 105 H 17 127/70 H 95 02/15/19 23:00 09/12/18 06:00 09/12/18 06:00 09/12/18 06:00 09/12/18 06:00 Microbiology 09/10/18 18:45 Gram Stain - Final Bronchial Alveolar Lavage - Left Lower Lobe Laboratory Results 09/12/18 04:15 09/12/18 04:15 09/11/18 09/12/18 09/13/18 05:59 05:59 05:59 Intake Total 3205 1053 Output Total 3080 4030 Balance 125 -2977 PT 30.0 SEC (12.0-15.0) H 09/12/18 04:15 INR 2.87 (0.83-1.16) H 09/12/18 04:15 Off epi yest. Dobutamine @ 4 mcg with MAPs 80s-90s overnoc. Holding SR/ST w/out AF. Min suppl O2 req. Excellent diuresis on IV lasix. Cr normalized. Still +6 kg. CTOP dissipating. LFTs and INR improving. Physical Exam - Physical Exam General Appearance: alert, no apparent distress Respiratory: other (coarse BS bilat bases, CTs x 3 to pleurovac, serosang drainage, no air leak) Cardiac/Chest: regular rate, rhythm, tachycardia, other (Sternotomy CDI. A&V wires intact.) Abdomen: non-tender (to light palp), soft Skin: warm/dry Extremities: swelling (2+ upper ext/hands) ICD10 Worksheet Patient Problems: Problems Problem Status Onset Atrial fibrillation with RVR Acute Cardiomyopathy Acute On intra-aortic balloon pump assist Acute S/P AVR Acute S/P MVR (mitral valve repair) Acute S/P ascending aortic aneurysm repair Acute S/P left atrial appendage ligation Acute Status post circumferential ablation of pulmonary vein Acute Left-sided epistaxis Acute
[2018-09-12] MEDS ORDERED: ASPIRIN 81 MG CHEWABLE TAB TUBE SCH (09:00)
[2018-09-12] MEDS ORDERED: SPIRONOLACTONE 25 MG TAB TUBE SCH (09:00)
[2018-09-12] MEDS ORDERED: ATORVASTATIN CALCIUM 40 MG TAB TUBE SCH (09:00)
[2018-09-12] MEDS ORDERED: LISINOPRIL 2.5 MG TAB TUBE SCH (09:00)
[2018-09-12] MEDS: SENNOSIDES/DOCUSATE SODIUM TAB PO SCH ×2 (09:36→20:02)
[2018-09-12] MEDS: predniSONE 20 MG TAB TUBE SCH (09:36)
[2018-09-12] MEDS: FAMOTIDINE 20 MG TAB TUBE SCH (09:36)
[2018-09-12] MEDS ORDERED: predniSONE 20 MG TAB PO SCH (11:57)
[2018-09-12] MEDS ORDERED: ASPIRIN 81 MG CHEWABLE TAB PO SCH (11:57)
[2018-09-12] MEDS ORDERED: FUROSEMIDE 20 MG/2 ML VIAL IVP ONE (12:00)
--- NOTE | 2018-09-12 12:42 | PDINTPN ---
Supervisor Plate Pasting Progress Note Assessment/Plan: ASSESSMENT 68-year-old male with asthma admitted with new onset nonischemic cardiomyopathy requiring intra-aortic balloon pump # severe aortic stenosis s/p AVR, MVRepair, primary repair TAA, LV epicardial leads, IABP, PVI, ILEANA 09/09/18 # NICM- EF 15% prior to surgery # shock - post operative vasoplegia plus cardiogenic shock. Extubated 09/11/2018 # respiratory failure - improving. hypervolemia, L sided mucous plugging, possible pna # nonischemic cardiomyopathy. Coronary angiogram without CAD. # pulmonary edema # asthma exacerbation. Wheezing on exam seems more asthma than cardiac mediated. More anxious with albuterol. # atrial fibrillation # anxiety. History of anxiety as outpatient. Not on medications PLAN # continue to wean vasopressors as tolerated # continue duo nebs and CPT # wean pred as able, started 09/08/2018 for mild asthma exacerbation, continue for now, wean as able # consider starting Zoloft # no need for antibiotics unless respiratory status and/or leukocytosis worsens # Feeding - advance as tolerated # Analgesia pain regimen # Sedation none # Thromboprophylaxis - SQ hep # Head of bed elevated # Ulcer prophylaxis - PPI # Glucose SSI # Skin no skin breakdown # Delirium - delirium precautions LABS 09/10/18 Bronch - wbc 62,800, 97% neutrophils IMAGING I personally reviewed interpreted radiographic images well as formal radiology reads Chest x-ray 09/08/2018 with interstitial edema 09/12/2018 chest x-ray interval removal ET tube, right IJ catheter in place, pulmonary venous congestion bibasilar atelectasis versus infiltrates 09/10/18 CXR lines and support devices in appropriate position. Interval improvement in pulmonary opacities 09/09/18 chest x-ray. Postoperative changes as expected. [place] in right main PA , sternotomy wires in place, ET tube slightly low, postoperative infiltrate. 09/08/2018 dobutamine stress echo-severe aortic stenosis with increasing valvular gradient with dobutamine. EF approximately 10%. No focal wall motion abnormalities or inducible ischemia Subjective: Extubated yesterday, diuresed well, pressors wean down, speaking and up in chair. Still with mild wheezing. Poor cough. No nausea, no vomiting, mild shortness of breath, leg swelling improving, no new rash Objective: Vital Signs Temp Pulse Resp BP Pulse Ox 36.6 C 90 18 132/71 H 96 09/12/18 08:00 09/12/18 11:45 09/12/18 11:45 09/12/18 09:02 09/12/18 11:45 Microbiology 09/10/18 18:45 Gram Stain - Final Bronchial Alveolar Lavage - Left Lower Lobe Laboratory Results 09/12/18 04:15 09/12/18 04:15 09/11/18 09/12/18 09/13/18 05:59 05:59 05:59 Intake Total 3205 1053 Output Total 3080 4030 Balance 125 -2977 PT 30.0 SEC (12.0-15.0) H 09/12/18 04:15 INR 2.87 (0.83-1.16) H 09/12/18 04:15 Physical Exam - Physical Exam General Appearance: other (Up in chair pillow on chest) EENT: PERRL/EOMI, normal ENT inspection Neck: other (Right IJ Cordis in place) Respiratory: other (Midline sternotomy site clean dry and intact) Cardiac/Chest: regular rate, rhythm, edema, other (Pericardial rub) Abdomen: non-tender, soft, No organomegaly Skin: normal color, warm/dry, No cyanosis Neuro/Psych: no motor/sensory deficits, alert ICD10 Worksheet Patient Problems: Problems Problem Status Onset Atrial fibrillation with RVR Acute Cardiomyopathy Acute On intra-aortic balloon pump assist Acute S/P AVR Acute S/P MVR (mitral valve repair) Acute S/P ascending aortic aneurysm repair Acute S/P left atrial appendage ligation Acute Status post circumferential ablation of pulmonary vein Acute Left-sided epistaxis Acute
[2018-09-12] MEDS: oxyCODONE IR 5 MG TAB PO PRN ×3 (14:00→22:16)
[2018-09-12] MEDS: PIPERACILLIN/TAZO 4.5 GM/DEX 100 ML IV SCH ×2 (16:53→23:48)
[2018-09-12] MEDS: CHLORHEXIDINE GLUCONATE 15 ML UDL PO SCH (16:54)
[2018-09-12] MEDS ORDERED: VANCOMYCIN 1.25 GM in NS 250 ML IV SCH (17:00)
[2018-09-12] MEDS ORDERED: VANCOMYCIN 1.5 GM in NS 250 ML IV SCH (17:00)
[2018-09-12] MEDS ORDERED: PIPERACILLIN/TAZO 4.5 GM/DEX 100 ML IV SCH (18:00)
[2018-09-13] MEDS: INSULIN LISPRO 100 UNIT/ML SC SCH ×2 (00:46→07:13)
[2018-09-13] MEDS: oxyCODONE IR 5 MG TAB PO PRN ×5 (04:25→20:45)
[2018-09-13 04:52] LABS: INR 2.17 (0.83-1.16); PROTIME(PATIENT) 24.2 SEC (12.0-15.0)
[2018-09-13] MEDS: PIPERACILLIN/TAZO 4.5 GM/DEX 100 ML IV SCH ×4 (05:31→23:03)
[2018-09-13] MEDS: IPRATROPIUM/ALBUTEROL 3 ML DEYVIAL IH SCH ×4 (05:53→21:34)
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
[2018-09-13] MEDS ORDERED: MAGNESIUM HYDROXIDE 30 ML UDCUP PO PRN (09:00)
[2018-09-13] MEDS ORDERED: PANTOPRAZOLE SODIUM 40 MG TAB PO ONE (09:00)
[2018-09-13] MEDS ORDERED: FUROSEMIDE 20 MG/2 ML VIAL IVP ONE (09:00)
[2018-09-13] MEDS ORDERED: FUROSEMIDE 40 MG TAB PO SCH (09:00)
[2018-09-13] MEDS: ASPIRIN 81 MG CHEWABLE TAB PO SCH (09:17)
[2018-09-13] MEDS: SENNOSIDES/DOCUSATE SODIUM TAB PO SCH (09:17)
--- NOTE | 2018-09-13 09:32 | ASMTCMCOM ---
CM Note CM Note Notes: Pt has been making gains, PT recommending Home with 24 hr supervision and outpatient/Cardiac rehab at this time. OT rec Home with family. Pt will likely be discharged independently, no CM needs identified at this time, family supportive. CM available if needs arise. Plan: Independent with follow-up as indicated. Date Signed: 09/13/2018 09:31 AM Electronically Signed By:ROSALINDA Dexter
[2018-09-13] MEDS: POTASSIUM CL 10 MEQ TAB PO SCH ×2 (09:34→20:46)
[2018-09-13] MEDS ORDERED: traZODone 50 MG TAB PO PRN (10:34)
--- NOTE | 2018-09-13 13:22 | PDINTPN ---
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 Extubated 09/11/2018 # respiratory failure - improving. hypervolemia, L sided mucous plugging, possible pna # aspiration pneumonia. Bronch with significant neutrophilia, CBC with leukocytosis and left shift, and right greater than left infiltrates. Respiratory status worsened despite diuresis and antibiotics were started 2018. # nonischemic cardiomyopathy. Coronary angiogram without CAD. # pulmonary edema # asthma exacerbation. Wheezing on exam seems more asthma than cardiac mediated. More anxious with albuterol. # atrial fibrillation # anxiety. History of anxiety as outpatient. Not on medications PLAN # rec mend continuing vanc and Zosyn, may narrow to Zosyn versus Unasyn for aspiration pneumonia to complete 5 day total course of antibiotics # continue aggressive CPT/pulmonary toilet # Duo nebs # restart ICS/LABA for asthma via advair 500/50 # zoloft for depression/anxiety (chronic problem and undertreated) # no need for antibiotics unless respiratory status and/or leukocytosis worsens # Feeding - advance as tolerated # Analgesia pain regimen # Sedation none # Thromboprophylaxis - SQ hep # Head of bed elevated # Ulcer prophylaxis - PPI # Glucose SSI # Skin no skin breakdown # Delirium - delirium precautions LABS 09/10/18 Bronch - wbc 62,800, 97% neutrophils IMAGING I personally reviewed interpreted radiographic images well as formal radiology reads Chest x-ray 09/08/2018 with interstitial edema 09/12/2018 chest x-ray interval removal ET tube, right IJ catheter in place, improving pulmonary venous congestion persistent bibasilar R>L basilar infitrates 09/10/18 CXR lines and support devices in appropriate position. Interval improvement in pulmonary opacities 09/09/18 chest x-ray. Postoperative changes as expected. [place] in right main PA , sternotomy wires in place, ET tube slightly low, postoperative infiltrate. 09/08/2018 dobutamine stress echo-severe aortic stenosis with increasing valvular gradient with dobutamine. EF approximately 10%. No focal wall motion abnormalities or inducible ischemia Subjective: Worsening respiratory status yesterday despite diuresis. Given infiltrates and neutrophilia bronchoscopy empiric antibiotics started for aspiration pneumonia with vanc and Zosyn yesterday afternoon. Interval improvements in respiratory status with CPT. Still complaining of chest pain mild shortness of breath although improved from yesterday. Denies headaches, rash, fevers or chills Objective: Vital Signs Temp Pulse Resp BP Pulse Ox 36.7 C 98 20 116/86 H 95 09/13/18 12:00 09/13/18 12:00 09/13/18 12:00 09/13/18 12:00 09/13/18 12:00 Microbiology 09/10/18 18:45 Gram Stain - Final Bronchial Alveolar Lavage - Left Lower Lobe Laboratory Results 09/13/18 04:30 09/13/18 04:30 09/12/18 09/13/18 09/14/18 05:59 05:59 05:59 Intake Total 1053 1830 Output Total 4030 2960 250 Balance -2977 -1130 -250 PT 24.2 SEC (12.0-15.0) H 09/13/18 04:30 INR 2.17 (0.83-1.16) H 09/13/18 04:30 Physical Exam - Physical Exam General Appearance: alert, no apparent distress EENT: PERRL/EOMI, normal ENT inspection Neck: non-tender, full range of motion Respiratory: other (Upper airway sounds with rhonchi transmitted throughout lung hook. Partial improvement with coughing.) Cardiac/Chest: normal peripheral pulses, regular rate, rhythm, other (Midline sternotomy site clean, dry, intact) Abdomen: normal bowel sounds, non-tender Skin: normal color, warm/dry Neuro/Psych: no motor/sensory deficits, alert, normal mood/affect, oriented x 3 ICD10 Worksheet Patient Problems: Problems Problem Status Onset Atrial fibrillation with RVR Acute Cardiomyopathy Acute On intra-aortic balloon pump assist Acute S/P AVR Acute S/P MVR (mitral valve repair) Acute S/P ascending aortic aneurysm repair Acute S/P left atrial appendage ligation Acute Status post circumferential ablation of pulmonary vein Acute Left-sided epistaxis Acute
[2018-09-13] MEDS: VANCOMYCIN HCL/NORMAL SALINE 250 ML IV SCH (13:28)
[2018-09-13] MEDS: FLUTICASONE/SALMETER 500/50MCG DISKUS IH SCH ×2 (13:43→21:36)
[2018-09-13] MEDS: FUROSEMIDE 40 MG TAB PO SCH (16:25)
[2018-09-13] MEDS: SERTRALINE HCL 50 MG TAB PO SCH (16:26)
[2018-09-13] MEDS: CARVEDILOL 3.125 MG TAB PO SCH (17:39)
[2018-09-13] MEDS: MELATONIN 3 MG TAB PO SCH (20:45)
[2018-09-14] MEDS: VANCOMYCIN HCL/NORMAL SALINE 250 ML IV SCH ×2 (00:12→15:28)
[2018-09-14] MEDS: oxyCODONE IR 5 MG TAB PO PRN ×2 (03:53→17:47)
[2018-09-14 05:52] LABS: INR 1.81 (0.83-1.16); PROTIME(PATIENT) 21.1 SEC (12.0-15.0)
[2018-09-14] MEDS: IPRATROPIUM/ALBUTEROL 3 ML DEYVIAL IH SCH ×2 (06:00→09:49)
[2018-09-14] MEDS: PIPERACILLIN/TAZO 4.5 GM/DEX 100 ML IV SCH ×4 (06:15→23:44)
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
[2018-09-14] MEDS: CARVEDILOL 3.125 MG TAB PO SCH ×3 (09:17→17:58)
[2018-09-14] MEDS: POTASSIUM CL 10 MEQ TAB PO SCH ×2 (09:18→20:21)
[2018-09-14] MEDS: ASPIRIN 81 MG CHEWABLE TAB PO SCH (09:19)
[2018-09-14] MEDS: FUROSEMIDE 40 MG TAB PO SCH ×2 (09:19→16:18)
[2018-09-14] MEDS: PANTOPRAZOLE SODIUM 40 MG TAB PO SCH (09:19)
[2018-09-14] MEDS: SERTRALINE HCL 50 MG TAB PO SCH (09:19)
[2018-09-14] MEDS: SENNOSIDES/DOCUSATE SODIUM TAB PO PRN ×2 (09:35→20:21)
[2018-09-14] MEDS: FLUTICASONE/SALMETER 500/50MCG DISKUS IH SCH ×2 (10:02→21:29)
[2018-09-14] MEDS ORDERED: IPRATROPIUM/ALBUTEROL 3 ML DEYVIAL IH PRN (12:00)
[2018-09-14] MEDS ORDERED: traMADol 50 MG TAB PO PRN (15:17)
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
[2018-09-14] MEDS: MELATONIN 3 MG TAB PO SCH (20:23)
[2018-09-15] MEDS: oxyCODONE IR 5 MG TAB PO PRN (01:39)
[2018-09-15] MEDS: PIPERACILLIN/TAZO 4.5 GM/DEX 100 ML IV SCH ×4 (06:03→23:13)
[2018-09-15 06:15] LABS: INR 1.42 (0.83-1.16); PROTIME(PATIENT) 17.5 SEC (12.0-15.0)
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
[2018-09-15] MEDS: FLUTICASONE/SALMETER 500/50MCG DISKUS IH SCH ×2 (08:56→20:43)
[2018-09-15] MEDS: ASPIRIN 81 MG CHEWABLE TAB PO SCH (09:15)
[2018-09-15] MEDS: FUROSEMIDE 40 MG TAB PO SCH ×2 (09:15→16:18)
[2018-09-15] MEDS: PANTOPRAZOLE SODIUM 40 MG TAB PO SCH (09:16)
[2018-09-15] MEDS: POTASSIUM CL 20 MEQ TAB PO SCH ×2 (09:16→22:32)
[2018-09-15] MEDS: SERTRALINE HCL 50 MG TAB PO SCH (09:16)
[2018-09-15] MEDS: CARVEDILOL 3.125 MG TAB PO SCH ×2 (11:00→17:40)
--- NOTE | 2018-09-15 13:07 | CPEKG ---
Test Reason : OPEN Blood Pressure : / mmHG Vent. Rate : 072 BPM Atrial Rate : 072 BPM P-R Int : 177 ms QRS Dur : 149 ms QT Int : 467 ms P-R-T Axes : 069 110 037 degrees QTc Int : 512 ms Sinus rhythm LBBB Confirmed by Luis Felipe Ibanez ([id number] on 09/15/2018 1:07:40 PM Referred By: Myron Peoples Confirmed By:Luis Felipe Ibanez
[2018-09-15] MEDS ORDERED: WARFARIN SODIUM 2.5 MG TAB PO ONE (16:00)
--- NOTE | 2018-09-15 17:02 | PDCARPN ---
<Nanci Eid - Last Filed: 09/15/18 16:53> Cardiology Progress Note Chief Complaint: NICM with LVEF 15% Assessment/Plan: Assessment/Plan: 1. Nonischemic cardiomyopathy: NYHA class IV CHF symptoms with LVEF 15% by echo yesterday 09/14. Challenges optimizing medical therapy post-operatively second to hypotension, Coreg 3.125mg BID started today. Epicardial ventricular leads placed x2. Recommend optimizing medical therapy for at least 1 month prior to reevaluating EF and indications for ICD and/or biventricular pacing. 2. Severe and moderate AI: POD#6 s/p tissue AVR 3. Paroxysmal atrial fibrillation: s/p bilateral PVI and suture ligation of left atrial appendage. [id number] score = 3, recommend lifelong anticoagulation once appropriate per CTS. 09/15/18 16:53 Subjective: Mild-moderate sternal discomfort and mild dyspnea this AM Reviewed/Discussed With: multidisciplinary team Time Spent with Patient: greater than 25 minutes Time Spent with Patient: Greater than 25 minutes spent on this patients care, greater than 50% of time spent counseling, educating, and coordinating care regarding the above mentioned plan. Objective: Vital Signs (8 Hrs) Temp Pulse Resp BP Pulse Ox 09/15/18 11:54 36.2 C 75 15 91/60 L 95 09/15/18 09:40 36.4 C 74 14 103/62 98 09/15/18 08:59 75 16 95 Intake/Output (24 Hrs) 09/14/18 09/15/18 09/16/18 05:59 05:59 05:59 Intake Total 2580 1550 Output Total 1191 935 500 Balance 1389 615 -500 Intake: Oral (ml) 1500 1250 IV Intake (ml) 1080 100 IV Infused (ml) 200 Piperacillin/Tazo 4.5 gm/ 200 Dex 100 ml @ 200 mls/hr IV Q6HRS [facility] Rx#: [id number] Output: Urine (ml) 851 625 500 Toilet 601 625 500 Urinal 250 Chest Tube Output (ml) 340 310 Location 1 120 Location 2 Right 220 310 Other: Weight 84.3 kg 84.1 kg Intake Quantity Yes Sufficient Output Comment Toilet not quantified Number of Voids Toilet 1 1 1 Number of Stools Toilet 1 1 Result Diagrams: 09/15/18 05:40 09/15/18 05:40 ICD10 Worksheet Patient Problems: Problems Problem Status Onset Atrial fibrillation with RVR Acute Cardiomyopathy Acute On intra-aortic balloon pump assist Acute S/P AVR Acute S/P MVR (mitral valve repair) Acute S/P ascending aortic aneurysm repair Acute S/P left atrial appendage ligation Acute Status post circumferential ablation of pulmonary vein Acute Left-sided epistaxis Acute <Doyle De La Rosa A - Last Filed: 09/16/18 10:10> Cardiology Progress Note Assessment/Plan: Addendum Noris cárdenas patient, and daughter. NICMP is multifactorial - AF w RVR, , ETOH use. Has not tried maximal medical therapy. Is on Coreg, further HF meds limited by low BP. Would wait 3 mo to assess response to medical Rx prior to considering BIVICD. Patient and family understand there is risk of SCD, but current guidelines suggest maximizing medical Rx prior to ICD. Will follow in 2 months post discharge and repeat echocardiogram. 09/16/18 10:08 Objective: Vital Signs (8 Hrs) Temp Pulse Resp BP Pulse Ox 09/16/18 08:37 85 98/65 L 09/16/18 07:59 36.4 C 80 14 107/70 93 09/16/18 04:00 36.8 C 89 18 105/71 93 Intake/Output (24 Hrs) 09/14/18 09/15/18 09/16/18 11:59 11:59 11:59 Intake Total 2580 1550 1505 Output Total 9187 934 3752 Balance 1539 715 -395 Intake: Oral (ml) 1500 1250 1040 IV Intake (ml) 1080 100 IV Infused (ml) 200 465 Piperacillin/Tazo 4.5 gm/ 200 465 Dex 100 ml @ 200 mls/hr IV Q6HRS [facility] Rx#: [id number] Output: Urine (ml) 964 567 5913 Toilet 345 289 6232 Chest Tube Output (ml) 440 210 Location 1 120 Location 2 Right 320 210 Other: Weight 85 kg 84.1 kg 85.049 kg Intake Quantity Yes Sufficient Output Comment Toilet not quantified Number of Voids Toilet 1 1 1 Number of Stools Toilet 1 1 1 Result Diagrams: 09/15/18 05:40 09/16/18 03:58
[2018-09-15] MEDS: MELATONIN 3 MG TAB PO SCH (22:32)
[2018-09-15] MEDS: SENNOSIDES/DOCUSATE SODIUM TAB PO PRN (22:32)
[2018-09-16 04:38] LABS: INR 1.37 (0.83-1.16)
[2018-09-16] MEDS: PIPERACILLIN/TAZO 4.5 GM/DEX 100 ML IV SCH ×3 (05:37→18:08)
--- NOTE | 2018-09-16 07:35 | SOAPPROG ---
SOAP Progress Note Assessment/Plan: Assessment: POD#7 AVR#25 Intuity bioprosthesis, MVA#28 Physio ring, asc ao aneurysm resection w primary repair, bilat pulmonary vein isolation, suture ligation left atrial appendage, placement right femoral IABP, placement of left epicardial ventricular leads x2 with tunneling to left chest Severe /moderate AI/ascending aortic aneurysm - s/p tissue AVR and asc ao rsxn without interposition graft. Antithrombotic prophylaxis as per rhythm. Paroxysmal atrial fibrillation - Addressed with PVI. Rare early post-op RVR. Amiodarone avoided d/t hepatic failure. BB added as tolerated. [id number] score of 3. Antithrombotic prophylaxis with Coumadin delayed by hepatic failure/ auto-anticoagulation. INR goal 2-3, duration TBD. Acute expected blood loss anemia with coagulopathy - Stable s/p 2u PRBC, 2u FFP , and 2u Plt. Chemical VTE prophylaxis not indicated. 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 IABP out POD#1. Successfully weaned off all drips by POD#3. TCPWs and chest tubes out. Staggered intro of heart failure regimen as tolerated. Surveillance echo with unchanged LVEF. Potential primary ICD, EDGE STITCHER as per cardiology. Markedly deconditioned but lives in a ranch style house, sister is a cardiac nurse who plans to stay with him for a few weeks, and he is not interested in SNF. Acute respiratory failure - Exacerbated by underlying asthma and sig pulm edema. Re-intubated POD#1. Bronchoscopy with evidence of L mucous plugging and pulmonary edema. Aggressively diuresed and successfully extubated POD#2. Steroids, mucolytics, nebs, and pulm toilet as per pulm. Empirically covered with a course of Abx for ? aspiration pneumonitis. Diet per CARE DIRECTOR. Hepatorenal dysfunction - Exacerbated by cardiogenic shock +/- possible pre-op ETOH abuse. Gradual improvements with supportive care. Cr normalized. Marked elev in Tbili, AST/ALT, and INR steadily decreasing. Non-obstructive multivessel CAD - Stable. Secondary prevention with ASA and BB. Statin when LFTs fully normalized. Plan: High dose ASA for analgesia while INR subtherapeutic. Cont coumadin 2.5 mg daily. Cont lasix 40 mg BID. Cont Coreg 3.125 mg BID. Cont inc activity as tolerated. Dispo - Anticipate home in 1-2 days. 09/16/18 07:31 Subjective: Tired. Sore but " I hate narcotics" and Tramadol " makes me loopy". Objective: Vital Signs Temp Pulse Resp BP Pulse Ox 36.8 C 89 18 105/71 93 09/16/18 04:00 09/16/18 04:00 09/16/18 04:00 09/16/18 04:00 09/16/18 04:00 Microbiology 09/10/18 18:45 Gram Stain - Final Bronchial Alveolar Lavage - Left Lower Lobe Laboratory Results 09/15/18 05:40 09/16/18 03:58 09/15/18 09/16/18 09/17/18 05:59 05:59 05:59 Intake Total 1550 1505 Output Total 935 1900 Balance 615 -395 PT 17.0 SEC (12.0-15.0) H 09/16/18 03:58 INR 1.37 (0.83-1.16) H 09/16/18 03:58 Physical Exam - Physical Exam General Appearance: alert, no apparent distress Respiratory: rhonchi (diffuse), other (chest tube sites oozy, L>R) Cardiac/Chest: regular rate, rhythm, other (Sternotomy and epicard ld site CDI) Abdomen: non-tender, soft Skin: warm/dry Extremities: swelling (1+ gen) ICD10 Worksheet Patient Problems: Problems Problem Status Onset Atrial fibrillation with RVR Acute Cardiomyopathy Acute On intra-aortic balloon pump assist Acute S/P AVR Acute S/P MVR (mitral valve repair) Acute S/P ascending aortic aneurysm repair Acute S/P left atrial appendage ligation Acute Status post circumferential ablation of pulmonary vein Acute Left-sided epistaxis Acute
[2018-09-16] MEDS: SERTRALINE HCL 50 MG TAB PO SCH (08:36)
[2018-09-16] MEDS: POTASSIUM CL 20 MEQ TAB PO SCH ×2 (08:36→22:04)
[2018-09-16] MEDS: ASPIRIN 81 MG CHEWABLE TAB PO SCH (08:36)
[2018-09-16] MEDS: FUROSEMIDE 40 MG TAB PO SCH (08:36)
[2018-09-16] MEDS: PANTOPRAZOLE SODIUM 40 MG TAB PO SCH (08:36)
[2018-09-16] MEDS: CARVEDILOL 3.125 MG TAB PO SCH ×2 (08:37→18:08)
[2018-09-16] MEDS: FLUTICASONE/SALMETER 500/50MCG DISKUS IH SCH ×2 (10:07→20:39)
--- NOTE | 2018-09-16 10:14 | ASMTCMCOM ---
CM Note CM Note Notes: CM reviewed pts chart. Pt may or may not need HC in 1-2 days. CM to follow up w/ Dr. Peoples's team. CM to follow. Plan: TBD Date Signed: 09/16/2018 10:13 AM Electronically Signed By:ROSALINDA Conway
[2018-09-16] MEDS: oxyCODONE IR 5 MG TAB PO PRN ×2 (11:57→22:05)
[2018-09-16] MEDS ORDERED: ASPIRIN EC 325 MG TAB PO PRN (12:00)
[2018-09-16] MEDS ORDERED: FUROSEMIDE 40 MG/4 ML VIAL IVP ONE ×2 (13:22→20:00)
[2018-09-16] MEDS ORDERED: WARFARIN SODIUM 2.5 MG TAB PO ONE (16:00)
[2018-09-16] MEDS ORDERED: WARFARIN SODIUM 5 MG TAB PO ONE (16:00)
[2018-09-16] MEDS ORDERED: ALBUMIN 5% 250 ML IV ONE (19:47)
[2018-09-16] MEDS ORDERED: ALBUMIN 5% 250 ML IV PRN (19:47)
--- NOTE | 2018-09-16 21:25 | SOAPPROG ---
SOAP Progress Note Assessment/Plan: Assessment: CHF consultation performed and dictated. 68 y/o man with history of asthma admitted 09/05/18 with CHF. Found to have LVEF 17%, moderate to severe , moderate MR, mild TR and enlarged ascending thoracic aorta 4.5cm. Cardiac cath 09/05/18 showed mild-moderate CAD. Underwent sternotomy with BIOAVR/MV repair, MAZE, ligation of ILEANA and repair of ascending thoracic aortic aneurysm. Echo post of 09/14/18 shows LVEF 17%, normal BIOAVR, mild TR and estimated PAS 23mmHg. He is slowly getting stronger. Today has wheezes and ANDRADE at 50-100ft. Denies CP, palpitations or PND. PLAN: 1)stop Coreg and start on Toprol XL 25mg PO qam as more beta one select. 2)start Lisinopril 5mg PO qam. 3)start Aldactone 25mg PO qam. 4)rest of meds without changes. 5)do not feel needs AICD currently. 6)hopefully home or to SNF in next 2-3 days as gets stronger with PT. Thanks. Will follow with you daily. 09/16/18 21:21 Objective: Vital Signs Temp Pulse Resp BP Pulse Ox 36.9 C 77 14 87/71 L 96 09/16/18 16:00 09/16/18 20:39 09/16/18 20:39 09/16/18 18:08 09/16/18 20:39 Microbiology 09/10/18 18:45 Gram Stain - Final Bronchial Alveolar Lavage - Left Lower Lobe Bronchial Culture - Final Laboratory Results 09/15/18 05:40 09/16/18 03:58 09/15/18 09/16/18 09/17/18 05:59 05:59 05:59 Intake Total 1550 1505 780 Output Total 935 1900 1500 Balance 615 395 -962 PT 17.0 SEC (12.0-15.0) H 09/16/18 03:58 INR 1.37 (0.83-1.16) H 09/16/18 03:58 ICD10 Worksheet Patient Problems: Problems Problem Status Onset Atrial fibrillation with RVR Acute Cardiomyopathy Acute On intra-aortic balloon pump assist Acute S/P AVR Acute S/P MVR (mitral valve repair) Acute S/P ascending aortic aneurysm repair Acute S/P left atrial appendage ligation Acute Status post circumferential ablation of pulmonary vein Acute Left-sided epistaxis Acute
[2018-09-16] MEDS: MELATONIN 3 MG TAB PO SCH (22:05)
[2018-09-17] MEDS: PIPERACILLIN/TAZO 4.5 GM/DEX 100 ML IV SCH ×3 (00:20→12:30)
[2018-09-17 07:45] LABS: INR 2.03 (0.83-1.16)
--- NOTE | 2018-09-17 08:07 | SOAPPROG ---
SOAP Progress Note Assessment/Plan: POD #8: AVR with #25 Carter Intuity bioprosthesis, MV repair with #28 Physio annuloplasty ring, ascending aortic aneurysm resection with primary repair, BL pulmonary vein isolation, ligation left atrial appendage, placement right femoral artery IABP, placement of left epicardial ventricular leads x2 with tunneling to left chest Drips: Dobutamine 4, Epi 7, Propofol, Insulin Severe with ascending aortic aneurysm - Thromboprophylaxis as per PAF Moderate AR - Mgmt as per AVR Paroxysmal atrial fibrillation s/p BL PVI with post-op RVR - Amiodarone use limited by hepatic failure - Continue BB - Coumadin with INR goal 2-3, duration at least 2 months or longer pending stability of rhythm, when medically appropriate Acute post-op blood loss anemia with coagulopathy - Stable s/p multiple transfusions Class IV CHF with systolic (EF ~15%) and diastolic dysfunction with post- operative shock and pulmonary edema - Continue Lasix, other HF meds as per Dr. Tirado - Epicardial ventricular lead mgmt as per cardiology Respiratory failure with h/o reactive airway disease - Stable Hepatic failure secondary to hypotension with possible pre-op ETOH abuse - Improvement with supportive care Non-obstructive CAD - Statin/ASA/BB for secondary prevention when appropriate DVT prophylaxis - SCDs Disposition - Home with outpatient cardiac rehab - Likely dc today Subjective: Feels well. Hopeful to get home today. Objective: Vital Signs Temp Pulse Resp BP Pulse Ox 36.9 C 78 16 103/70 95 09/17/18 04:00 09/17/18 04:00 09/17/18 04:00 09/17/18 04:00 09/17/18 04:00 Microbiology 09/10/18 18:45 Gram Stain - Final Bronchial Alveolar Lavage - Left Lower Lobe Bronchial Culture - Final Laboratory Results 09/17/18 06:25 09/17/18 06:25 09/16/18 09/17/18 09/18/18 05:59 05:59 05:59 Intake Total 1505 1300 Output Total 1900 2850 Balance -395 -1550 PT 23.0 SEC (12.0-15.0) H 09/17/18 06:25 INR 2.03 (0.83-1.16) H 09/17/18 06:25 Physical Exam - Physical Exam General Appearance: WD/WN, alert, no apparent distress EENT: No scleral icterus (R), No scleral icterus (L) Respiratory: No respiratory distress Cardiac/Chest: regular rate, rhythm Abdomen: non-tender, soft, No distended Skin: normal color, warm/dry Extremities: pedal edema Neuro/Psych: no motor/sensory deficits, alert, normal mood/affect, oriented x 3 ICD10 Worksheet Patient Problems: Problems Problem Status Onset Atrial fibrillation with RVR Acute Cardiomyopathy Acute On intra-aortic balloon pump assist Acute S/P AVR Acute S/P MVR (mitral valve repair) Acute S/P ascending aortic aneurysm repair Acute S/P left atrial appendage ligation Acute Status post circumferential ablation of pulmonary vein Acute Left-sided epistaxis Acute
[2018-09-17] MEDS: ASPIRIN 81 MG CHEWABLE TAB PO SCH (08:16)
[2018-09-17] MEDS: POTASSIUM CL 20 MEQ TAB PO SCH (08:17)
[2018-09-17] MEDS: PANTOPRAZOLE SODIUM 40 MG TAB PO SCH (08:17)
[2018-09-17] MEDS: SERTRALINE HCL 50 MG TAB PO SCH (08:17)
[2018-09-17 08:25] VITALS: BP 114/73
[2018-09-17] MEDS ORDERED: SPIRONOLACTONE 25 MG TAB PO SCH (09:00)
[2018-09-17] MEDS ORDERED: METOPROLOL SUCCINATE XR 25 MG TAB PO SCH (09:00)
[2018-09-17] MEDS ORDERED: FUROSEMIDE 40 MG TAB PO SCH (09:00)
[2018-09-17] MEDS: FLUTICASONE/SALMETER 500/50MCG DISKUS IH SCH (09:04)
--- NOTE | 2018-09-17 09:19 | GCON ---
[f rep st] CONSULTATION CONGESTIVE HEART FAILURE CONSULT DATE OF CONSULTATION: 09/16/2018 REFERRING PHYSICIAN: Myron Peoples DO REASON FOR CONSULTATION: Evaluate gentleman's status post high-risk cardiac surgery with severe LV dysfunction and recommend future CHF management. HISTORY OF PRESENT ILLNESS: I was asked by Dr. Myron Peoples to consult for the above reasons. The patient is a 68-year-old gentleman with a history of asthma , but no previous cardiac problems. He presented to the hospital on 09/05/2018 with fatigue and shortness of breath and decompensated heart failure. An echo on 09/05/2018 demonstrated an LVEF of 17% with moderate to severe aortic stenosis and mitral regurgitation with mild tricuspid insufficiency and an ascending thoracic aorta at 4.5 cm. Heart catheterization on 09/05/2018 demonstrated [id number] nonobstructive coronary disease. Approximately a week ago, he underwent a high-risk sternotomy with a bioprosthetic aortic valve replacement, mitral valve repair, Maze, ligation of left atrial appendage, and repair of ascending thoracic aorta with intraoperative balloon pump stabilization. The balloon pump is out, and he has been extubated. A post cardiac surgery echo demonstrates an LVEF of 17% with normal functioning bioprosthetic aortic valve replacement and mild tricuspid insufficiency with an estimated PA systolic pressure of 27 mmHg. He is tired, but is able to walk the hallways for 50-100 feet with mild shortness of breath. He is having lots of wheezing. He denies chest pain or syncope or PND. He feels he is slowly getting stronger. PAST MEDICAL HISTORY: Asthma and heart failure as described above. PAST SURGICAL HISTORY: As per HPI. CURRENT MEDICATIONS: Aspirin 81 mg per day, carvedilol 3.125 mg b.i.d., Lasix 40 mg p.o. b.i.d., and Zosyn. ALLERGIES: No known drug allergies. 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 He denies excessive tobacco use and does not smoke. FAMILY HISTORY: Unremarkable for premature heart failure. REVIEW OF SYSTEMS: The patient reports no TIA or CVA symptoms. He reports no GI bleed symptoms such as hematemesis, melena, or bright red blood per rectum. Rest of 10-point review of systems is negative. PHYSICAL EXAM: VITAL SIGNS: Afebrile, pulse 82 and regular, blood pressure 107 /64, respirations 24, 1 L/minutes supplemental oxygen 92%. GENERAL: A normal- appearing gentleman in no acute distress without chest pain or using excess respiratory muscles. EYES: Pupils equal and reactive to light. ENT: Oral mucosa with no cyanosis. NECK: Jugular venous pressure to 8 cm. Carotid pulses 2+ bilaterally with no obvious bruits. No thyromegaly noted. No nuchal rigidity. LUNGS: Bilateral wheezing in all lung hook. No rales or rhonchi. HEART: Enlarged PMI. Regular rate and rhythm with 1/6 systolic murmur and positive S3 gallop. ABDOMINAL EXAM: Soft and nontender. No hepatosplenomegaly or ascites. No guarding or rebound. EXTREMITIES: 2+ peripheral pulses including femoral and pedal pulses. Trace pretibial edema bilaterally. MUSCULOSKELETAL: No scoliosis. SKIN: No cyanosis or bleeding. NEURO: Normal affect and mood. LABORATORY: White count 20,000, hematocrit 40, platelets 96,000, MCV 94. INR 1.37. Sodium 135, potassium 4.4, chloride 100, bicarb 28, BUN 37, creatinine 1.1, glucose 87, AST 266, ALT 1088, albumin 2.8. IMPRESSION: A 68-year-old gentleman 1 week status post high-risk cardiac surgery with bioprosthetic aortic valve replacement, mitral valve repair, Maze, and left atrial appendage ligation and repair of ascending thoracic aorta with acute systolic heart failure with a left ventricular ejection fraction of 17%, nonischemic in nature. Overall, I am hopeful that his left ventricular function will improve now that his moderate to severe aortic stenosis has been replaced with a normal functioning bioprosthetic aortic valve replacement. He appears still mild to moderately hypervolemic and probably having some bronchospasm too. RECOMMENDATIONS: 1. Would stop Coreg. 2. Would start on Toprol XL 25 mg daily, which is more beta 1 select and tolerated in asthmatics. 3. Would start on lisinopril 5 mg daily. 4. Would add Aldactone 25 mg per day. 5. For now, I do not think he needs an AICD or biventricular pacing as I would like to see how his ejection fraction improves over the next 3 months. 6. 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 His LV function is markedly decreased. Thank you for allowing me to participate in the care of this patient. I will follow along closely with you during his hospitalization. /[id number]/MODL MTDD
--- NOTE | 2018-09-17 10:05 | PDDCSUM ---
Discharge Summary Discharge Summary: ADMISSION DATE: 09/05/18 DISCHARGE DATE: 09/17/18 ADMISSION DIAGNOSES 1. Severe aortic stenosis 2. Moderate mitral regurgitation 3. Paroxysmal atrial fibrillation 4. Acute on chronic class 4 systolic and diastolic heart failure 5. Reactive airway disease 6. Non-obstructive coronary artery disease 7. Ascending aortic aneurysm 8. Pulmonary edema DISCHARGE DIAGNOSES 1. As above 2. Acute post-op blood loss anemia with coagulopathy 3. Post-operative cardiogenic shock 4. Respiratory failure 5. Hepatic failure PROCEDURES 09/09/18 ([facility]): AVR with #25 Carter Intuity bioprosthesis, MV repair with #28 Physio annuloplasty ring, ascending aortic aneurysm resection with primary repair, BL pulmonary vein isolation, ligation left atrial appendage, placement right femoral artery IABP, placement of left epicardial ventricular leads x2 with tunneling to left chest HPI 68M with multivalvular cardiomyopathy admitted with acute on chronic class 4 systolic and diastolic CHF. HOSPITAL COURSE BY PROBLEM LIST 1. Severe aortic stenosis with ascending aortic aneurysm - stable s/p AVR and aortic replacement. Thromboprophylaxis with Coumadin at least 2 months with INR goal 2-3 - ultimate duration dependent on stability of rhythm. 2. Moderate mitral regurgitation - stable s/p MV repair with annuloplasty. Thromboprophylaxis as per AVR. 3. Paroxysmal atrial fibrillation s/p ablation - continue beta-austin. Amiodarone use limited by hepatic failure. Thromboprophylaxis with INR goal 2-3 , duration as per AVR/MVR, or longer pending stability of sinus rhythm. 4. Acute on chronic class 4 systolic/diastolic heart failure and post-op cardiac shock - weaned from IABP on POD #1 with eventual discontinuation of inotropes/pressors. Medically optimized on discharge. Continue Metoprolol, Lisinopril, Aldactone and Lasix with further mgmt on an outpatient basis by Dr. Tirado. Future LV lead use for AICD/BiV PPM as per cardiology. 5. Respiratory failure with pulmonary edema and reactive airway disease - extubated with failure requiring re-intubation. Eventually extubated without issue. Pre-op nebulizers continued. Prophylactic Zosyn course prescribed by pulmonology. Discharged on room air without distress. 6. Non-obstructive coronary artery disease - continue beta-austin and baby ASA for secondary prevention. Statin deferred d/t liver issues. 7. Acute post-op blood loss anemia with coagulopathy - stable s/p multiple transfusions. 8. Hepatic failure - pt with elevated hepatic enzymes and bilirubin. Improvement with supportive care. CONDITION Fair DISPOSITION Home, self-care PERTINENT DISCHARGE CLINICAL INFORMATION Vitals: 114/73, 82 SR, 95% on RA, +2 kg Exam: NAD, SR, No resp distress, ND, soft, NTP, BLE +1 edema Labs: INR 2.03, AST 266, ALT 1088, Tbili 4.3 ACTIVITY Pt was instructed on sternal precautions, activity limitations, and which problems to call [facility] with. Please see Discharge Plan in chart for specifics. DISCHARGE MEDICATIONS As per Home Medication List PENDING STUDIES/LABS 1. CXR and CMP prior to surgical follow-up FOLLOW-UP 1. Myron Peoples (CT Surgery), 09/22/18, 1:45 PM 2. Mick Tirado (Cardiology), 09/30/18, 10:15 AM 3. INR check as per [facility]
--- NOTE | 2018-09-17 12:26 | SOAPPROG ---
SOAP Progress Note Assessment/Plan: Assessment: 68 y/o man with history of asthma admitted 09/05/18 with CHF. Found to have LVEF 17%, moderate to severe , moderate MR, mild TR and enlarged ascending thoracic aorta 4.5cm. Cardiac cath 09/05/18 showed mild-moderate CAD. Underwent sternotomy with BIOAVR/MV repair, MAZE, ligation of ILEANA and repair of ascending thoracic aortic aneurysm. Echo post of 09/14/18 shows LVEF 17%, normal BIOAVR, mild TR and estimated PAS 23mmHg. He is slowly getting stronger. ANDRADE at 100ft. Still mildly hypervolemic but diuresing well on PO Lasix. PLAN: 1)start Lisnopril 5mg PO qam for discharge home. 2)stop KCL 3)rest of meds without changes. 4)f/u [facility] as out-patient in ten days. 09/17/18 12:24 Subjective: feeling stronger. Wheezing still but less. ANDRADE at 100ft walking with PT but no near syncope or CP. Wants to go home. Objective: Vital Signs Temp Pulse Resp BP Pulse Ox 36.9 C 82 16 114/73 92 09/17/18 04:00 09/17/18 08:58 09/17/18 08:58 09/17/18 08:16 09/17/18 08:58 Microbiology 09/10/18 18:45 Gram Stain - Final Bronchial Alveolar Lavage - Left Lower Lobe Bronchial Culture - Final Laboratory Results 09/17/18 06:25 09/17/18 06:25 09/16/18 09/17/18 09/18/18 05:59 05:59 05:59 Intake Total 1505 1300 Output Total 1900 2850 Balance -395 -1550 PT 23.0 SEC (12.0-15.0) H 09/17/18 06:25 INR 2.03 (0.83-1.16) H 09/17/18 06:25 Physical Exam - Physical Exam General Appearance: alert EENT: normal ENT inspection Neck: non-tender Respiratory: wheezing Cardiac/Chest: regular rate, rhythm, gallop, systolic murmur (1/6 SHAMA heard), No JVD Peripheral Pulses: 2+: carotid (R), carotid (L), femoral (R), femoral (L), dorsalis-pedis (R), dorsalis-pedis (L) Abdomen: non-tender, No guarding, No rebound, No hepatomegaly, No ascites Skin: warm/dry Extremities: No pedal edema Neuro/Psych: alert ICD10 Worksheet Patient Problems: Problems Problem Status Onset Atrial fibrillation with RVR Acute Cardiomyopathy Acute On intra-aortic balloon pump assist Acute S/P AVR Acute S/P MVR (mitral valve repair) Acute S/P ascending aortic aneurysm repair Acute S/P left atrial appendage ligation Acute Status post circumferential ablation of pulmonary vein Acute Left-sided epistaxis Acute
[2018-09-18] MEDS ORDERED: POTASSIUM CL 10 MEQ TAB PO SCH (09:00)
[2018-09-18] MEDS ORDERED: FUROSEMIDE 40 MG TAB PO SCH (09:00)
== END 2018-09-17 14:40 | disposition home or self-care (01) | DRG 216 ==
LOC: OBSVTOIN 20:41 → F2N 21:38 → F2W 09-14 16:55
PROVIDERS: ADMIT Internal Medicine; ATTEND Thoracic Surgery (Cardiothoracic Vascular Surgery)
PROC: 5A02210 Assistance with Cardiac Output using Balloon Pump, Continuous (ICD-10-PCS; 2018-09-05)
PROC: B2111ZZ Fluoroscopy of Multiple Coronary Arteries using Low Osmolar Contrast (ICD-10-PCS; 2018-09-05)
PROC: B2151ZZ Fluoroscopy of Left Heart using Low Osmolar Contrast (ICD-10-PCS; 2018-09-05)
PROC: 30233K1 Transfusion of Nonautologous Frozen Plasma into Peripheral Vein, Percutaneous Approach (ICD-10-PCS; 2018-09-08)
PROC: 30233R1 Transfusion of Nonautologous Platelets into Peripheral Vein, Percutaneous Approach (ICD-10-PCS; 2018-09-08)
PROC: 02UG0JZ Supplement Mitral Valve with Synthetic Substitute, Open Approach (ICD-10-PCS; principal; 2018-09-09 07:15)
PROC: 02RF08Z Replacement of Aortic Valve with Zooplastic Tissue, Open Approach (ICD-10-PCS; principal; 2018-09-09 07:15)
PROC: 5A1221Z Performance of Cardiac Output, Continuous (ICD-10-PCS; principal; 2018-09-09 07:15)
PROC: 02L70CK Occlusion of Left Atrial Appendage with Extraluminal Device, Open Approach (ICD-10-PCS; principal; 2018-09-09 07:15)
PROC: 025S0ZZ Destruction of Right Pulmonary Vein, Open Approach (ICD-10-PCS; principal; 2018-09-09 07:15)
PROC: 025T0ZZ Destruction of Left Pulmonary Vein, Open Approach (ICD-10-PCS; principal; 2018-09-09 07:15)
PROC: 5A1945Z Respiratory Ventilation, 24-96 Consecutive Hours (ICD-10-PCS; 2018-09-10)
PROC: 0BH17EZ Insertion of Endotracheal Airway into Trachea, Via Natural or Artificial Opening (ICD-10-PCS; 2018-09-10)
PROC: 0B938ZZ Drainage of Right Main Bronchus, Via Natural or Artificial Opening Endoscopic (ICD-10-PCS; 2018-09-10)
PROC: 0B978ZZ Drainage of Left Main Bronchus, Via Natural or Artificial Opening Endoscopic (ICD-10-PCS; 2018-09-10)
PROC: 0B998ZX Drainage of Lingula Bronchus, Via Natural or Artificial Opening Endoscopic, Diagnostic (ICD-10-PCS; 2018-09-10)
PROC: 30233N1 Transfusion of Nonautologous Red Blood Cells into Peripheral Vein, Percutaneous Approach (ICD-10-PCS; 2018-09-10)
DX: I35.0 Nonrheumatic aortic (valve) stenosis (principal); I11.0 Hypertensive heart disease with heart failure; I50.43 Acute on chronic combined systolic (congestive) and diastolic (congestive) heart failure; J96.90 Respiratory failure, unspecified, unspecified whether with hypoxia or hypercapnia; R57.0 Cardiogenic shock; D62 Acute posthemorrhagic anemia; I42.9 Cardiomyopathy, unspecified; J45.901 Unspecified asthma with (acute) exacerbation; I48.0 Paroxysmal atrial fibrillation; I34.0 Nonrheumatic mitral (valve) insufficiency; I44.7 Left bundle-branch block, unspecified; I71.4 Abdominal aortic aneurysm, without rupture; I25.10 Atherosclerotic heart disease of native coronary artery without angina pectoris; K72.90 Hepatic failure, unspecified without coma; E86.9 Volume depletion, unspecified; Z87.891 Personal history of nicotine dependence
CPT/HCPCS: 82435-PO; 82565-PO; 82947-PO; 83605-ER; 84132-PO; 84295-PO; 84484-ER; 84520-PO; 85014-ER; 92507-GN; 92523-GN; 92526-GN; 92610-GN; 96365; 96366; 97116-GP; 97162-GP; 97165-GO; 97530-GP; 97535-GO; C1725; C1768; C1898; J0153; J0171; J0282; J0461; J0690; J1100; J1200; J1250; J1265; J1644; J1650; J1815; J1940; J2001; J2150; J2250; J2260; J2270; J2310; J2370; J2405; J2543; J2704; J2720; J2930; J3010; J3370; J3475; J3480; J7512; P9016; P9017; P9035; P9041; Q9967

== ENCOUNTER → 2018-09-22 | Outpatient (CLI) | payer OTHER | LOC: FIMAGING 15:27 → EDSTATUS 15:30 | PROVIDERS: ATTEND Thoracic Surgery (Cardiothoracic Vascular Surgery) | DX: J90 Pleural effusion, not elsewhere classified (principal); J98.11 Atelectasis; Z98.890 Other specified postprocedural states; Z95.2 Presence of prosthetic heart valve ==

== ENCOUNTER → 2018-11-25 | Outpatient (CLI) | payer OTHER | DX: I48.91 Unspecified atrial fibrillation (principal); I44.7 Left bundle-branch block, unspecified ==

== ENCOUNTER 2018-12-14 11:07 | Observation (INO) | payer OTHER ==
[2018-12-14] MEDS ORDERED: ceFAZolin 2 GM/DEXTROSE 100 ML IV ONE (11:09)
[2018-12-14] MEDS ORDERED: BACITRACIN IRRIGATION/NS 50,000 UNITS/1,000 ML BTL IRR ONE (11:09)
[2018-12-14] MEDS ORDERED: NS 1,000 ML IV ONE (11:09)
[2018-12-14 11:51] LABS: PLATELET COUNT 150 10^3/uL (150-400)
[2018-12-14 12:05] LABS: INR 1.25 (0.83-1.16); PROTIME(PATIENT) 15.2 SEC (12.0-15.0)
[2018-12-14] MEDS ORDERED: IOPAMIDOL (ISOVUE-300) 100 ML BTL ONE (12:47)
[2018-12-14] MEDS ORDERED: BUPIVACAINE 0.5% 30 ML SDV ONE (12:47)
--- NOTE | 2018-12-14 13:10 | PDGENHP ---
History & Physical Chief Complaint: nonischemic cmp, sp avr Relevant Physical Exam: s1s2 rrr cta ao3 Cardiorespiratory Assessment: for biv icd. will check threshold of epicardial LV lead if acceptable will use it for LV pacing
[2018-12-14] MEDS ORDERED: MIDAZOLAM 2 MG/2 ML VIAL IVP ONE (13:15)
--- NOTE | 2018-12-14 13:15 | PDANEPAE ---
ANE History of Present Illness bi-v icd ANE Past Medical History - Cardiovascular History Hx Hypertension: Yes Hx Arrhythmias: Yes Hx Chest Pain: Yes Hx Coronary Artery / Peripheral Vascular Disease: Yes Hx CHF / Valvular Disease: Yes Hx Palpitations: Yes Cardiovascular History Comment: mod CAD with 50% LAD lesion - Pulmonary History Hx COPD: No Hx Asthma/Reactive Airway Disease: Yes Hx Recent Upper Respiratory Infection: No Hx Oxygen in Use at Home: No Hx Sleep Apnea: Yes - Neurologic History Hx Cerebrovascular Accident: No Hx Seizures: No Hx Dementia: No - Endocrine History Hx Diabetes: No Hypothyroid: No Hyperthyroid: No Obesity: mild - Renal History Hx Renal Disorders: No - Liver History Hx Hepatic Disorders: Yes Hepatic History Comment: elevated lft with cardiomyopathy - resolving - Chronic Pain History Chronic Pain: Yes (Knee pain/shoulder pain) ANE Review of Systems Review of Systems: - Exercise capacity Exercise capacity: >=4 METS ANE Patient History - Allergies Allergies/Adverse Reactions: dexmedetomidine Allergy (Unknown, Verified 09/11/18 07:35) Rash - Home Medications Home medications: home medication list seen and reviewed Home Medications: Albuterol [Proventil Inhaler HFA (*)] 1 - 2 puffs IH Q4H PRN 06/24/17 [Last Taken 09/05/18] Budesonide/Formoterol 160/4.5 [Symbicort 160-4.5 Mcg Inh (*)] 2 puffs IH BID [Last Taken 12/14/18 09:00] Albuterol [Proventil Inhaler HFA (*)] 2 puffs IH BID 12/14/18 [Last Taken 08:00] Ascorbic Acid [Vitamin C 250 mg (*)] 250 mg PO DAILY 12/14/18 [Last Taken Unknown] Furosemide [Lasix 20 MG (*)] 20 mg PO Q2D 12/14/18 [Last Taken 12/13/18] Glucosamine Sulfate [Glucosamine Sulfate 500 MG (*)] 500 mg PO DAILY 12/14/18 [ Last Taken Unknown] Herbals/Supplements -Info Only 1 ea PO DAILY 12/14/18 [Last Taken Unknown] Losartan Potassium [Cozaar 25 mg (*)] 25 mg PO HS 12/14/18 [Last Taken 12/13/18] Melatonin [Melatonin 3 MG (*)] 3 mg PO HS 12/14/18 [Last Taken 12/13/18] Metoprolol Succinate Xr [Toprol Xl 50 mg (*)] 50 mg PO DAILY 12/14/18 [Last Taken 12/13/18] Multivitamins [Multivitamin (*)] 1 each PO DAILY 12/14/18 [Last Taken Unknown] Omeprazole 20 mg PO DAILY 12/14/18 [Last Taken Unknown] Warfarin Sodium [Coumadin 2.5MG (*)] 5 mg PO SUMOWETHFRSA@12/14/18 [Last Taken 12/11/18] Warfarin Sodium [Coumadin 2.5MG (*)] 7.5 mg PO TU@16 12/14/18 [Last Taken ] - NPO status NPO Status: no food or drink >8 hours - Smoking Hx Smoking Status: Former smoker ANE Labs/Vital Signs - Labs Result Diagrams: 12/14/18 11:30 12/14/18 11:30 - Vital Signs Height: 168 cm Weight: 74.8 kg ANE Physical Exam - Airway Mallampati Score: Class 2 Mouth exam: normal dental/mouth exam - Pulmonary Pulmonary: no respiratory distress - Cardiovascular Cardiovascular: regular rate and rhythym - ASA Status ASA Status: III ANE Anesthesia Plan Anesthesia Plan: GA w LMA
[2018-12-14] MEDS ORDERED: fentaNYL 100 MCG/2 ML INJ ONE (13:32)
[2018-12-14] MEDS ORDERED: DEXAMETHASONE 4 MG/ML VIAL ONE (13:32)
[2018-12-14] MEDS ORDERED: ONDANSETRON 4 MG/2 ML VIAL ONE (13:32)
[2018-12-14] MEDS ORDERED: PROPOFOL 200 MG/20 ML VIAL ONE (13:32)
[2018-12-14] MEDS ORDERED: LIDOCAINE 2% 2 ML INJ ONE ×3 (13:33)
[2018-12-14] MEDS ORDERED: ePHEDrine SULFATE 25 MG/5 ML SYR ONE (13:49)
[2018-12-14] MEDS ORDERED: ALBUTEROL 3 ML DEYVIAL IH PRN (15:22)
[2018-12-14] MEDS ORDERED: NALOXONE HCL 0.4 MG/ML INJ IVP PRN (15:22)
[2018-12-14] MEDS ORDERED: fentaNYL 100 MCG/2 ML INJ IVP PRN (15:22)
--- NOTE | 2018-12-14 15:22 | POSTANESTH ---
Post Anesthetic Evaluation Cardiovascular Status: Normal, Stable Respiratory Status: Normal, Stable Level of Consciousness/Mental Status: Can Participate in Eval Pain Control: Adequate, Prn Tx Ordered Nausea/Vomiting Control: Adequate, Prn Tx Ordered Complications Possibly Related to Anesthesia: None Noted
[2018-12-14] MEDS ORDERED: ALBUTEROL 60 PUFFS/8 GM MDI IH PRN (15:24)
[2018-12-14] MEDS ORDERED: WARFARIN SODIUM 5 MG TAB PO SCH (16:00)
[2018-12-14] MEDS: ALBUTEROL 60 PUFFS/8 GM MDI IH SCH (20:32)
[2018-12-14] MEDS: BUDESONIDE/FORMOTEROL 160/4.5 60 PUFFS/MDI IH SCH (20:33)
[2018-12-14] MEDS ORDERED: MELATONIN 3 MG TAB PO SCH (21:00)
[2018-12-14] MEDS ORDERED: LOSARTAN POTASSIUM 25 MG TAB PO SCH (21:00)
[2018-12-15 04:51] LABS: PLATELET COUNT 156 10^3/uL (150-400)
[2018-12-15 07:52] VITALS: BP 96/57
[2018-12-15] MEDS: BUDESONIDE/FORMOTEROL 160/4.5 60 PUFFS/MDI IH SCH (08:26)
[2018-12-15] MEDS: ALBUTEROL 60 PUFFS/8 GM MDI IH SCH (08:26)
[2018-12-15] MEDS ORDERED: METOPROLOL SUCCINATE XR 50 MG TAB PO SCH (09:00)
[2018-12-15] MEDS ORDERED: FUROSEMIDE 20 MG TAB PO SCH (09:00)
[2018-12-15] MEDS ORDERED: ASPIRIN 81 MG CHEWABLE TAB PO SCH (09:00)
[2018-12-15] MEDS ORDERED: SPIRONOLACTONE 25 MG TAB PO SCH (09:00)
[2018-12-15] MEDS ORDERED: PANTOPRAZOLE SODIUM 40 MG TAB PO SCH (09:00)
--- NOTE | 2018-12-15 10:20 | ASDISCHSUM ---
Discharge Information Plan Status:Home with No Needs Medically Cleared to Leave:12/15/2018 Discharge Date:12/15/2018 CM D/C Disposition:Home, Routine, Self-Care ADT D/C Disposition:Home, Routine, Self-Care Projected Discharge Date:12/15/2018 Transportation at D/C: Discharge Delay Reason: Follow-Up Date:12/15/2018 Discharge Slot: Final Diagnosis: Placement Information Patient Contact Information Contact Name:GRAHAM Relationship: Address:[address] City:[place] Alternate Phone: [facility]/Zip Code:[place] [address] Email: Financial Information Financial Class:Medicare Primary Plan Desc:MEDICARE OUTPATIENT Primary Plan Number:[id number] Secondary Plan Desc:MAHIN BLEVINS Secondary Plan Number:[id number] Assessment Information LACE LACE Length of stay for Answers: Less than 1 day current admission Acuity / Level of Answers: No Care: Did the patient have an inpatient admission? Comorbidities - select Answers: Congestive heart failure all that apply Coronary Artery Disease Opioid dependence / Chronic pain Other Notes: HTN # of Emergency department Answers: 1-2 visits in the last 6 months Score: 10 Date Signed: 12/15/2018 10:18 AM Electronically Signed By:Tiffany Mejia RN Intervention Information Intervention Type:*CLYDE-Signed Date of Service:12/15/2018 09:56 AM Patient Type:Observation Staff Member:Edith Carmona Hours: Discipline: Severity: Comment:
--- NOTE | 2018-12-15 10:22 | GDS ---
[f rep st] DISCHARGE SUMMARY SUPERVISING PUBLICITY DIRECTOR: Dr. Doyle De La Rosa. ADMISSION DIAGNOSES: 1. Nonischemic cardiomyopathy with a left ventricular ejection fraction of 15%. 2. Severe aortic stenosis, status post AVR 08/2018. 3. Paroxysmal atrial fibrillation. DISCHARGE DIAGNOSES: Nonischemic cardiomyopathies, status post implant of a biventricular implantable cardioverter defibrillator. HOSPITAL COURSE: Patient presented 12/14/2018, for implant of a biventricular ICD in the setting of nonischemic cardiomyopathy with [id number] activity intolerance. He underwent successful implant of a biventricular ICD with Dr. Doyle De La Rosa without any intra procedure complications. His epicardial lead was connected to his generator at that time. He had no intra-procedure complications and he has done very well in the postprocedure setting, he is appropriate and stable for discharge home today. PHYSICAL EXAMINATION: GENERAL: Alert and oriented x4 in no apparent distress. VITAL SIGNS: Blood pressure 96/57, heart rate 104, respiratory rate 12, SpO2 92% on room air, temp 36.7 degrees Celsius. RESPIRATORY: Lungs are clear to auscultation without adventitious breath sounds. CARDIAC: Regular rate and rhythm, S1, S2. ABDOMEN: Normoactive bowel sounds times all 4 quadrants. No masses or tenderness. Soft to palpation. SKIN: [place], warm, dry without cyanosis, clubbing, or peripheral edema. Left pectoral incision has a clean and dry dressing in place without evidence of hematoma, redness, oozing, or erythema to this site. EXTREMITIES: Bilateral lower extremities with pulses 2+ . No edema. Normal range of motion. LABORATORY STUDIES: Drawn today demonstrate WBC 11.85, CBC and BMP otherwise stable compared to preprocedure. Please note the elevated WBCs are to be expected post-procedure. PROCEDURES PERFORMED DURING HOSPITALIZATION: Implant of a biventricular permanent pacemaker as mentioned above. Preliminary review of postprocedure chest x-ray this morning demonstrates stable lead positioning without any acute abnormalities. Device interrogation this morning demonstrates normal device function with normal impedance and thresholds. DISCHARGE DISPOSITION: Patient was discharged home in stable condition. He is under activity restrictions as below. DISCHARGE MEDICATIONS: Please see discharge medication reconciliation sheet for full details. DISCHARGE INSTRUCTIONS: Post pacemaker instructions reviewed with the patient in detail. 1. We discussed activity restrictions, including lifting, pushing, pulling, no more than 5 pounds, and avoidance of lifting his left arm above the level of the shoulder or putting up behind his back for the next 4 weeks, and he will avoid strenuous upper body exercises for the next 6 weeks. 2. He will avoid driving for 48 hours. 3. He will continue to monitor his incision daily for any signs of infection or new or concerning changes number. 4. He will follow up with our device clinic in 1 week to have his uma removed. At the time of discharge, patient verbalized understanding regarding all discharge instructions without questions or concerns. He has a followup visit with our device clinic and a followup visit with our EP clinic. He will contact [facility] with any new or concerning symptoms prior to his upcoming visit. Time spent on discharge greater than 30 minutes. /[id number]/MODL MTDD
--- NOTE | 2018-12-15 13:33 | EPPROC ---
Electrophysiology Procedure Note: PROCEDURE PERFORMED: (12/14/2018) 1. Implantation of an A-BiV Implantable Cardioverter Defibrillator 2. Subclavian vein angiography 3. Fluoroscopy INDICATION: Nonischemic cardiomyopathy Atypical LBBB Cardiomyopathy, LVEF 20% PROCEDURE NOTE: Patient presented to the cardiac catherization laboratory in a fasting, post absorptive state. Dr. Bhardwaj administered anesthesia. The L infraclavicular area was prepped and draped in the usual sterile fashion. Lidocaine plus bupivacaine was used for local anesthesia. L subclavian venography was performed by injection of iodinated contrast into the L antecubital vein. This was done to assure patency of the vein and also to assess for any anatomical aberrations. Using a combination of blunt and sharp dissection and electrocautery, the dissection was carried down to the prepectoral fascia. A pocket was made in this anatomical plane. All bleeding was controlled with electrocautery. The pocket was packed with gauze soaked in antibiotic solution. Fluoroscopy was utilized during the entire procedure for venous access and placement of the leads. 2 epicardial LV leads were placed during surgery. They were both brought to the field and tested, both had excellent thresholds. The lead with better threshold was used, the other lead was capped and sutured to posterior aspect of pocket. Using a direct stick technique the L extra thoracic axillary vein was accessed with 3 sticks using the modified Seldinger technique. Placement of the guide wires into the venous system was confirmed by low pressure blood return and also by visualizing the guide wires advancing into the inferior vena cava. A purse string suture was applied around the guide wires. Two #7 [place] sheaths were advanced under fluoroscopic guidance over the guide wires. An active fixation ventricular ICD lead was advanced into the right ventricular apex and screwed in place. An active fixation atrial lead was advanced into the right atrial appendage and screwed in place. The peel away sheaths were removed. Pacing thresholds, sensing parameters and lead impedances were measured. There was no diaphragmatic stimulation at maximum output. The leads were sutured to the prepectoral fascia with 3 nonabsorbable sutures. The gauze packing was removed from the ICD pocket. The pocket was again inspected for any bleeding. The leads were attached to the pacemaker securely. The ICD was inserted into the pocket and secured in place with a nonabsorbable suture. Fluoroscopy was performed in CAM[place] and NIUEAN planes to verify right sided placement of the leads. Also fluoroscopy of the pacemaker pocket was performed. Defibrillation threshold testing was not performed. The ICD pocket was closed in 3 layers with absorbable monocryl sutures and uma. Appropriate dressing was applied. The patient left the cardiac catheterization laboratory in stable condition. Serial Numbers: SYSTEM IS NOT MRI COMPATIBLE 1. Device SJM [id number] SN [id number] 2. Atrial Lead SJM 2088 TC SN [id number] 3. Right Ventricular Lead SJM 7122 Q SN [id number] 4. Left Ventricular Lead SJM [id number] SN [id number] (SJM [id number] SN [id number] is capped and usable) Stimulation Thresholds & Impedance Measurements: 1. Atrial Lead P 3.4 mV 1.5 V 0.5 ms 440 ohm 2. Right Ventricular Lead R 11.5 mV 510 ohm 0.75 V 0.5 ms 3. Left Ventricular Lead 340 ohm 1.25 V 0.5 ms Jigar Pacing Parameters: 1. Pacing mode DDD 2. Lower rate60 ppm 3. Upper nrfv013 ppm Tachycardia therapy parameters: VF zone : Detection 214 bpm, ATP while charging First therapy 40 Joule Subsequent therapies 40 Joule VT zone : Detection 181 bpm ATP x 3 Second therapy 25 Joule Subsequent therapies 40 Joule Patient Problems: Problems Problem Status Onset On intra-aortic balloon pump assist Acute S/P left atrial appendage ligation Acute S/P ascending aortic aneurysm repair Acute Status post circumferential ablation of pulmonary vein Acute S/P MVR (mitral valve repair) Acute S/P AVR Acute Left-sided epistaxis Acute Atrial fibrillation with RVR Acute Cardiomyopathy Acute
[2018-12-15] MEDS ORDERED: WARFARIN SODIUM 5 MG TAB PO SCH (16:00)
== END 2018-12-15 13:32 | disposition home or self-care (01) ==
LOC: FCATH 11:07 → F2W 15:24
PROVIDERS: ADMIT Internal Medicine Cardiovascular Disease; ATTEND Internal Medicine Cardiovascular Disease
DX: I42.8 Other cardiomyopathies (principal); I44.7 Left bundle-branch block, unspecified; I48.91 Unspecified atrial fibrillation; I11.0 Hypertensive heart disease with heart failure; I50.22 Chronic systolic (congestive) heart failure; J45.901 Unspecified asthma with (acute) exacerbation; I25.10 Atherosclerotic heart disease of native coronary artery without angina pectoris; Z79.01 Long term (current) use of anticoagulants; Z87.891 Personal history of nicotine dependence; Z95.2 Presence of prosthetic heart valve
CPT/HCPCS: 33225; 33249; 71045; 71046; C1777; C1882; C1898; J0690; J1100; J2405; J2704; J3010; Q9967